=== PATIENT | female | born 1995 | race Caucasian/White ===

== ENCOUNTER 2022-09-28 07:56 | Outpatient (CLI) | payer MEDICAID, SELFPAY ==
[2022-09-28 08:08] VITALS: BP 108/64; PULSE 93; RESP 16; TEMP 36.1; O2SAT 100; BMI 31.0
[2022-09-28] MEDS: 0.9% NaCl Peripheral Flush Adult/Peds IV (08:20)
[2022-09-28] MEDS: Lactated Ringers 1,000 ML 999 ML IV (08:20)
[2022-09-28 08:28] LABS: Hematocrit 36.9 % (37-47); Hemoglobin 12.5 g/dL (12.0-15.0); Mean Corp Hgb Conc 33.9 g/dL (32-36); Mean Corpuscular Hgb 29.3 pg (27.0-32.0); Mean Corpuscular Volume 86.4 fL (81-99); Mean Platelet Vol. 10.6 fl (6.2-12.0); Platelet Count 215 K/mm3 (150-450); RBC Distribution Width CV 12.2 % (11.6-14.6); RBC Distribution Width SD 38.5 fl (35.1-43.9); Red Blood Count 4.27 M/mm3 (4.2-5.4); White Blood Count 8.4 K/mm3 (4.4-11.0)
[2022-09-28 08:54] LABS: ALB/GLOB Ratio 1.1 RATIO (0.9-2.4); AST(SGOT) 11 U/L (15-37); Alanine Aminotransfer ALT/SGPT 30 U/L (13-56); Albumin, Serum 3.9 g/dL (3.2-5.0); Alkaline Phosphatase 49 U/L (45-117); Anion Gap 8 (5-15); BUN 5 mg/dL (7-18); BUN/Creat Ratio 6.6 RATIO (10-20); Calcium,Total 9.2 mg/dL (8.5-10.1); Chloride 104 mmol/L (98-107); Creatinine, Serum 0.75 mg/dL (0.55-1.02); EST Glomerular Filtration Rate 99 mL/min (>60); Est Glom Filt Rate - Afr Amer 120 mL/min (>60); Estimated Creatinine Clearance 99.02 ml/min; Globulin 3.6 g/dL (2.2-4.2); Glucose 93 mg/dL (74-106); Potassium 3.7 mmol/L (3.5-5.1); Protein, Total 7.5 g/dL (6.4-8.2); Sodium Level 135 mmol/L (136-145); Thyroid Stim Hormone (TSH) 1.54 uIU/mL (0.358-3.74)
[2022-09-28] MEDS: Famotidine 20 MG in 0.9% NS 10 ML 300 MG IV (09:10)
[2022-09-28] MEDS: Dext 5%-0.45% NS 1,000 ML 250 ML IV (09:23)
[2022-09-28 13:35] VITALS: BP 114/56; PULSE 78
== END 2022-09-28 07:57 | disposition home or self-care (01) ==
PROVIDERS: PCP Obstetrics & Gynecology; Referring Provider Obstetrics & Gynecology; Visit Provider Obstetrics & Gynecology
DX: O21.1 Hyperemesis gravidarum with metabolic disturbance (principal); Z3A.00 Weeks of gestation of pregnancy not specified
CPT/HCPCS: 96374; 96375; 80053; 84443; 85027; J7120; A4216; J3490; J7799

== ENCOUNTER 2023-01-17 09:00 | Emergency (ER) | payer MEDICAID, SELFPAY ==
[2023-01-17 09:01] VITALS: BP 109/68; PULSE 94; RESP 18; TEMP 36.8; O2SAT 96; BMI 30.4
--- NOTE | 2023-01-17 09:21 | US_ITS ---
EXAM: US ABDOMEN LIMITED, RIGHT UPPER QUADRANT CLINICAL INDICATION: ruq pain, 23 wks preg TECHNIQUE: Real-time ultrasound of the right upper quadrant with image documentation. COMPARISON: No relevant prior studies available. FINDINGS: LIVER: Normal. There is normal echotexture. No focal hepatic lesion. No intrahepatic biliary ductal dilation. GALLBLADDER: Multiple small stones noted within an otherwise normal gallbladder. No gallbladder wall thickening is demonstrated. No pericholecystic fluid. Negative sonographic Horton''s sign. COMMON BILE DUCT: Unremarkable as visualized. The proximal common bile duct is normal size. PANCREAS: Unremarkable as visualized. No focal abnormality is demonstrated in the pancreas. No pancreatic ductal dilatation. RIGHT KIDNEY: Normal. There is no hydronephrosis. No shadowing calculus. No focal lesion or perinephric collection is demonstrated. US/Gallbladder IMPRESSION: Cholelithiasis. Electronically Signed: Nicholas Fox MD at 11:04 EDT ,
--- NOTE | 2023-01-17 09:22 | EDS_ITS ---
HPI HPI - GI History of Present Illness Chief Complaint: Abd Pain Informant: patient and spouse/S.O. Narrative Narrative: G1 P0 at 23-week gestation presents concerns for recurrent epigastric pain with nausea and vomiting. Patient reports in the first trimester seen at [facility] for similar symptoms had laboratory work reported it was indigestion. She was sent home medications however is not continued it. 2 weeks later had similar mild symptoms. She states is doing fine until 1 AM this morning she ate yogurt at 11 PM. Woke up with severe pain settled down return at 3 she took Zofran when she vomited. 7 AM symptoms return. She is concerned due to a strong family history stating all the females requiring gallbladder removal after their first . She has no right upper quadrant pain. No fevers. No urinary symptoms. Denies any abnormal vaginal discharge or bleeding. Prior similar symptoms: Yes PFSH PFSH Home Medications NK 01/17/23 [History Last Taken Unknown] Allergy/AdvReac Type Severity Reaction Status Date / Time No Known Allergies Allergy Verified 01/17/23 09:00 [facility] [place] ED Constitutional Constitutional ED: Denies chills, fever(s) or sweats Eyes Eyes: Denies change in vision ENT ENT ED: Denies dysphagia or sore throat Cardiovascular Cardiovascular: Denies chest pain, leg edema, palpitations or racing heartbeat Respiratory/Chest Respiratory/Chest: Denies cough, dyspnea or dyspnea on exertion Gastrointestinal Gastrointestinal: Reports abdominal pain, nausea and vomiting; Denies diarrhea Genitourinary Genitourinary ED: Denies dysuria, hematuria or urinary frequency Musculoskeletal Musculoskeletal: Denies back pain, extremity pain or neck pain Integumentary Denies rash or wounds Neurologic Neurologic: Denies headache(s), paresthesias or weakness EXAM Physical Exam Const Vital Signs: 01/17/23 09:01 Temperature 98.3 F Temperature Source Temporal Pulse Rate 94 Respiratory Rate 18 Blood Pressure 109/68 Blood Pressure Mean 81 Pulse Ox 96 Oxygen Delivery Method Room Air Positive well nourished and well developed General Appearance ED: well developed and NAD HEENT Reports moist mucous membranes normocephalic and atraumatic Eyes PERRL, EOMs intact bilaterally and conjunctivae normal General Eye ED: Yes normal appearance of both eyes Neck no lymphadenopathy and supple General: Negative for tenderness Chest Wall Chest: Negative for tenderness Resp normal respiratory effort and normal air movement Effort and Inspection: symmetric chest movement; Negative for respiratory distress Cardio regular rate, regular rhythm and no murmurs Peripheral Pulses: pulses 2+ throughout GI GI Narrative: Gravid abdomen, minimal tenderness epigastrium negative Horton's or McBurney's tenderness. Palpation: Negative for guarding or rebound tenderness present Back/Spine no CVA tenderness and no thoracic nor lumbar tenderness Extremity normal to inspection General Extremety ED: Negative for edema or tenderness General Extremity: Negative for edema Neuro oriented x3 and no sensory deficits noted Sensorium / Orientation: awake and alert Skin no rashes or lesions noted and no wounds MDM MDM MDM Narrative Medical decision making narrative: Interventions / MDM: Differential diagnosis: Diagnosis considered but do not suspect: Preeclampsia however blood pressure normal 109/68. My EKG interpretation: N/A Imaging independently reviewed and interpreted by myself: N/A External documents reviewed: N/A Test considered but not ordered:N/A ED course: Re-evaluation: stable Disposition discussed with patient/family/significant other: Case discussed with consulting clinician: N/A This note was generated with [employer] dictation software. It may contain incorrect words, spelling, and punctuation that were not noted in checking the note before signing. Discharge Plan Triage Chief Complaint: Abd Pain ED Provider: Pratik Patricio Dx/Rx/DC Orders Prescriptions: No Action NK Primary Care Provider: Aurelia Will Referrals: Aurelia Will MD [Primary Care Provider] -
--- NOTE | 2023-01-17 09:22 | ED.VIS.GI ---
HPI HPI - GI History of Present Illness Chief Complaint: Abd Pain Informant: patient and spouse/S.O. Narrative Narrative: G1, P0 at 23-week gestation presents concerns for recurrent epigastric pain with nausea and vomiting. Patient reports in the first trimester seen at [facility] for similar symptoms had laboratory work reported it was indigestion. She was sent home medications however is not continued it. 2 weeks later had similar mild symptoms. She states is doing fine until 1 AM this morning she ate yogurt at 11 PM. Woke up with severe pain settled down return at 3 she took Zofran when she vomited. 7 AM symptoms return. She is concerned due to a strong family history stating all the females requiring gallbladder removal after their first . She has no right upper quadrant pain. No fevers. No urinary symptoms. Denies any abnormal vaginal discharge or bleeding. Prior similar symptoms: Yes PFSH [facility] Medical History (Updated 01/17/23 @ 11:[address] Pratik Patricio DO) PCO (polycystic ovaries) PCOS (polycystic ovarian syndrome) Home Medications pantoprazole 40 mg tablet,delayed release 40 mg PO DAILY #30 tabs 01/17/23 [Rx Last Taken Unknown] Allergy/AdvReac Type Severity Reaction Status Date / Time No Known Allergies Allergy Verified 01/17/23 09:00 Social History Smoking Status: Never smoker ROS ROS ED Constitutional Constitutional ED: Denies chills, fever(s) or sweats Eyes Eyes: Denies change in vision ENT ENT ED: Denies dysphagia or sore throat Cardiovascular Cardiovascular: Denies chest pain, leg edema, palpitations or racing heartbeat Respiratory/Chest Respiratory/Chest: Denies cough, dyspnea or dyspnea on exertion Gastrointestinal Gastrointestinal: Reports abdominal pain, nausea and vomiting; Denies diarrhea Genitourinary Genitourinary ED: Denies dysuria, hematuria or urinary frequency Musculoskeletal Musculoskeletal: Denies back pain, extremity pain or neck pain Integumentary Denies rash or wounds Neurologic Neurologic: Denies headache(s), paresthesias or weakness EXAM Physical Exam Const Vital Signs: 01/17/23 09:01 01/17/23 11:45 Temperature 98.3 F Temperature Source Temporal Pulse Rate 94 75 Respiratory Rate 18 16 Blood Pressure 109/68 118/63 Blood Pressure Mean 81 81 Pulse Ox 96 98 Oxygen Delivery Method Room Air Positive well nourished and well developed General Appearance ED: well developed and NAD HEENT Reports moist mucous membranes normocephalic and atraumatic Eyes PERRL, EOMs intact bilaterally and conjunctivae normal General Eye ED: Yes normal appearance of both eyes Neck no lymphadenopathy and supple General: Negative for tenderness Chest Wall Chest: Negative for tenderness Resp normal respiratory effort and normal air movement Effort and Inspection: symmetric chest movement; Negative for respiratory distress Cardio regular rate, regular rhythm and no murmurs Peripheral Pulses: pulses 2+ throughout GI GI Narrative: Gravid abdomen, minimal tenderness epigastrium negative Horton's or McBurney's tenderness. Palpation: Negative for guarding or rebound tenderness present Back/Spine no CVA tenderness and no thoracic nor lumbar tenderness Extremity normal to inspection General Extremety ED: Negative for edema or tenderness General Extremity: Negative for edema Neuro oriented x3 and no sensory deficits noted Sensorium / Orientation: awake and alert Skin no rashes or lesions noted and no wounds MDM MDM MDM Narrative Medical decision making narrative: Interventions / MDM: Differential diagnosis: Biliary colic, cholelithiasis, gastritis Diagnosis considered but do not suspect: Preeclampsia however blood pressure normal 109/68. Cholecystitis however no pain right upper quadrant ultrasound negative. My EKG interpretation: N/A Imaging independently reviewed and interpreted by myself: Right upper quadrant ultrasound multiple gallstones, no signs of cholecystitis. External documents reviewed: N/A Test considered but not ordered:N/A ED course: Patient presenting pain increasing after eating dairy. Recurrent symptoms, she is 23 weeks . Nonsurgical abdomen. Labs were drawn ultrasound ordered. IV established for fluids and Pepcid. Results white count 12.8, normal lipase and liver enzymes. heart tones 140, right upper quad ultrasound notes cholelithiasis with no signs of cholecystitis. Clinically stable. Discussed with patient referred to surgery as an outpatient however not likely urgent surgery as she is . She understands this. She will avoid dairy products and greasy foods, she has Zofran at home. We will add a PPI. Outpatient follow-up with return precautions. All questions were answered. Re-evaluation: stable Disposition discussed with patient/family/significant other: Patient and significant other Case discussed with consulting clinician: N/A This note was generated with [employer] software. It may contain incorrect words, spelling, and punctuation that were not noted in checking the note before signing. Lab Data Attestation: I reviewed the patient's lab results. Labs: Laboratory Results - last 24 hr 01/17/23 01/17/23 09:45 10:40 WBC 12.8 H RBC 3.81 L Hgb 11.4 L Hct 34.9 L MCV 91.6 MCH 29.9 MCHC 32.7 RDW Std Deviation 41.[address] 12.4 Plt Count 228 MPV 10.7 Immature Gran % (Auto) 0.700 Neut % (Auto) 74.9 H Lymph % (Auto) 17.3 L [place] % (Auto) 4.8 Eos % (Auto) 1.7 Baso % (Auto) 0.6 Absolute Neuts (auto) 9.6 H Absolute Lymphs (auto) 2.21 Nucleated RBC % 0 Sodium 137 Potassium 4.0 Chloride 105 Carbon Dioxide 24.0 Anion Gap 8 BUN 7 Creatinine 0.48 L Estim Creat Clear Calc 161.22 Est GFR (MDRD) Af Amer 199 Est GFR (MDRD) Non-Af 165 BUN/Creatinine Ratio 14.4 Glucose 90 Calcium 9.2 Total Bilirubin 0.50 Direct Bilirubin 0.27 AST 27 ALT 27 Alkaline Phosphatase 48 Total Protein 7.2 Albumin 3.3 Globulin 3.9 Lipase 26 Urine Color Yellow Urine Clarity Sl. Cloudy Urine pH 8.0 Ur Specific [place] 1.010 Urine Protein Negative Urine Glucose (UA) Normal Urine Ketones Negative Urine Occult Blood Negative Urine Nitrite Negative Urine Bilirubin Negative Urine Urobilinogen Normal Ur Leukocyte Esterase 25 H Urine RBC 0 SEEN Urine WBC 0-5 SEEN Ur Squamous Epith Cells 0-5 SEEN Urine Bacteria RARE Urine Mucus RARE Radiography Diagnostic Testing: Clinical Impression(s) from Imaging Studies Gallbladder Ultrasound 01/17/23 09:21 IMPRESSION: Cholelithiasis. Electronically Signed: Nicholas Fox MD at 11:04 EDT , Discharge Plan Triage Chief Complaint: Abd Pain ED Provider: Pratik Patricio Dx/Rx/DC Orders Clinical Impression: , Cholelithiasis, Biliary colic Instructions: ED Gallstones with Biliary Colic, ED Established ... Prescriptions: New pantoprazole 40 mg tablet,delayed release (DR/EC) 40 mg PO DAILY Qty: 30 0RF Primary Care Provider: Aurelia Will Referrals: Chan Canales MD [Med Staff - Active Staff] - 1-2 Weeks Aurelia Will MD [Primary Care Provider] - Activity Restrictions/Additional Instructions: Ultrasound with gallstones multiple small ones. No signs of cholecystitis. Avoid greasy and dairy foods. Take medications as prescribed. Follow-up with surgery for evaluation as outpatient. Return if any recurrent or worsening symptoms. Disposition Disposition: Home, Self Care Discharge Date/Time: 01/17/23 11:46
[2023-01-17] MEDS: 0.9% Normal Saline (1000mL) 1,000 ML 1000 ML IV (09:55)
[2023-01-17] MEDS: Famotidine 200 MG/20 ML MDV 20 MG in 0.9% Normal Saline (Pres. free 8 ML 300 MG IV (09:55)
[2023-01-17 09:56] LABS: Absolute Lymphocyte Count 2.21 X10^3/uL (0.83-4.51); Absolute Neutrophil Count 9.6 X10^3/uL (2.0-7.7); Basophil# 0.08 X10^3/uL; Basophil% 0.6 % (0-1); Eosinophil# 0.22 X10^3/uL; Eosinophils% 1.7 % (0-5); Hematocrit 34.9 % (37-47); Hemoglobin 11.4 g/dL (12.0-15.0); Lymphocyte # 2.21 X10^3/ul (0.83-4.51); Lymphocyte % 17.3 % (19-41); Mean Corp Hgb Conc 32.7 g/dL (32-36); Mean Corpuscular Hgb 29.9 pg (27.0-32.0); Mean Corpuscular Volume 91.6 fL (81-99); Mean Platelet Vol. 10.7 fl (6.2-12.0); Monocyte# 0.62 X10^3/uL; Monocyte% 4.8 % (0-10); NRBC Flagged by Analyzer 0 % (0-5); Neutrophil # 9.57 X10^3/uL (2.7-7.7); Neutrophil % 74.9 % (47-70); Platelet Count 228 K/mm3 (150-450); RBC Distribution Width CV 12.4 % (11.6-14.6); RBC Distribution Width SD 41.1 fl (35.1-43.9); Red Blood Count 3.81 M/mm3 (4.2-5.4); White Blood Count 12.8 K/mm3 (4.4-11.0)
[2023-01-17 10:16] LABS: AST(SGOT) 27 U/L (15-37); Alanine Aminotransfer ALT/SGPT 27 U/L (13-56); Albumin, Serum 3.3 g/dL (3.2-5.0); Alkaline Phosphatase 48 U/L (45-117); Anion Gap 8 (5-15); BUN 7 mg/dL (7-18); BUN/Creat Ratio 14.4 RATIO (10-20); Bilirubin, Direct 0.27 mg/dL (0.00-0.30); Calcium,Total 9.2 mg/dL (8.5-10.1); Chloride 105 mmol/L (98-107); Creatinine, Serum 0.48 mg/dL (0.55-1.02); EST Glomerular Filtration Rate 165 mL/min (>60); Est Glom Filt Rate - Afr Amer 199 mL/min (>60); Estimated Creatinine Clearance 161.22 ml/min; Globulin 3.9 g/dL (2.2-4.2); Glucose 90 mg/dL (74-106); Lipase 26 U/L (13-75); Protein, Total 7.2 g/dL (6.4-8.2); Sodium Level 137 mmol/L (136-145)
[2023-01-17 10:57] LABS: Red Blood Cells-Urine 0 SEEN /hpf (0-5)
[2023-01-17 10:59] LABS: Color, Urine Yellow (Yellow); Glucose, Dipstick Normal (Normal); Ketone-Dipstick Negative (Negative); Leukocyte Esterase-Dipstick 25 /ul (Negative); Nitrite-Dipstick Negative (Negative); Occult Blood-Urine Negative /ul (Negative); Protein-Dipstick Negative (Negative); Urine Bilirubin Dipstick Negative (Negative); Urine Clarity Sl. Cloudy (Clear); Urine Urobilinogen Normal (Normal)
[2023-01-17 11:09] LABS: Squamous Epithelial Cells - UA 0-5 SEEN /hpf (5-10); White Blood Cells 0-5 SEEN /hpf (0-5)
[2023-01-17 11:10] LABS: Bacteria RARE /hpf (None Seen); Mucous, Urine RARE /hpf (<or=2+)
[2023-01-17 11:45] VITALS: BP 118/63; PULSE 75; RESP 16; O2SAT 98
== END 2023-01-17 11:46 | disposition home or self-care (01) ==
PROVIDERS: Emergency Provider Emergency Medicine; PCP Family Medicine; Visit Provider Emergency Medicine
DX: O99.612 Diseases of the digestive system complicating pregnancy, second trimester (principal); Z3A.23 23 weeks gestation of pregnancy; K80.60 Calculus of gallbladder and bile duct with cholecystitis, unspecified, without obstruction; K30 Functional dyspepsia; O26.612 Liver and biliary tract disorders in pregnancy, second trimester; O99.284 Endocrine, nutritional and metabolic diseases complicating childbirth; E28.2 Polycystic ovarian syndrome
CPT/HCPCS: 76705; 80048; 80076; 81001; 83690; 85025; 99283; A4216; J3490 ×2; J7030

== ENCOUNTER 2023-01-18 16:08 | Inpatient (IN) | payer MEDICAID, SELFPAY ==
[2023-01-18 16:09] VITALS: BP 124/77; PULSE 74; RESP 18; TEMP 35.8; O2SAT 97; BMI 30.2
--- NOTE | 2023-01-18 16:36 | US_ITS ---
STUDY: ABDOMINAL ULTRASOUND - RIGHT UPPER QUADRANT REASON FOR VISIT: Female, 27 years old RUQ PAIN, GALLSTONES, TECHNIQUE: Ultrasound evaluation of the right upper quadrant was performed with real-time and static huber-scale imaging. TECHNICAL QUALITY: Adequate. COMPARISON: None. FINDINGS: Liver: The liver measures 15.9 cm. There is normal echogenicity of the liver. The bile ducts are within normal limits. There is hepatic color flow. The direction of portal flow is hepatopetal. There is no demonstrated mass lesion. Gallbladder: Normal distended gallbladder. The gallbladder wall measures 4.1 mm. There is a positive sonographic Horton''s sign. There is no pericholecystic fluid. There are multiple gallstones. Common Bile Duct (C.B.D.): The common bile duct measures 7.6 mm. Pancreas: Normal size of the head, body and tail of the pancreas. There is normal echogenicity of the pancreas. There is no demonstrated pancreatic mass or cyst. Right Kidney: Normal size of the right kidney. The right kidney measures 10.1 x 6 x 4.9 cm. Normal renal cortex. The right cortex measures 1.6 cm. There is no demonstrated renal mass or cyst. There is no right hydronephrosis. US/Gallbladder IMPRESSION: Findings consistent with cholelithiasis and acute cholecystitis. Mildly dilated distal common bile duct without definitive evidence for intraductal stone. MRI/MRCP would be useful for further assessment if indicated Electronically Signed: Hamlet Alvarado MD at 18:46 EDT ,
--- NOTE | 2023-01-18 16:37 | EDS_ITS ---
HPI HPI - GI History of Present Illness Chief Complaint: Abd Pain Informant: patient Narrative Narrative: Patient presents again today with continuing right upper quadrant pain and nausea and vomiting despite Zofran. This is a patient 23 weeks gestation. She has a significant family history of biliary disease especially during or after pregnancies. She has no abdominal surgeries though. She had her first episode of right upper quadrant pain with nausea and vomiting in October. This lasted for couple days. She had the same thing happened in November. This episode started a couple days ago now. She gets pain and cramping in the right upper quadrant. Sometimes it will moved to her back or shoulder area. She has been getting nausea and vomiting. She came back in because of the pain but also because she really just cannot keep liquids down. She had had some mild hyperemesis on about week 7 or 8 of but other than that she has not had problems with nausea and vomiting throughout . She has no urinary symptoms. No pelvic or lower abdominal pain whatsoever. No discharge or bleeding. No fevers or chills. No coughing or trouble breathing. She has contacted her [employer] office. They evidently have her set up to see a surgeon on Saturday although she is not sure who that is. [facility] Medical History PCO (polycystic ovaries) PCOS (polycystic ovarian syndrome) Home Medications pantoprazole 40 mg tablet,delayed release 40 mg PO DAILY #30 tabs 01/17/23 [Rx Last Taken Unknown] Allergy/AdvReac Type Severity Reaction Status Date / Time No Known Allergies Allergy Verified 01/18/23 16:08 Social History (Updated 01/18/23 @ 16:59 by Leta Loredo) household members: spouse Smoking Status: Never smoker ROS ROS ED ROS Narrative A complete review of systems was performed and is negative except as documented in the history of present illness. Some specific details below. Constitutional: No recent fevers or chills. EYE: No visual complaints or pain. August eye color. ENT: No difficulty swallowing. No swelling. No pain. He is treated for GERD she is not really having GERD type symptoms. She has cut all acid foods out of her diet with no benefit. CV: No chest pain or palpitations. Respiratory: No dyspnea. No hemoptysis. No difficulty taking breaths. GI: Please see history of present illness. : No frequency dysuria or hematuria. Musculoskeletal: No recent trauma. No pains. Skin: No rash. Nondiaphoretic. Neuro: No weakness or numbness. Endocrine: No polyuria or polydipsia. EXAM Physical Exam Narrative Exam Narrative: CONSTITUTIONAL: Patient is nontoxic in appearance. The patient looks comfortable. HEENT: No notable trauma. Mucous membranes moist. No sinus tenderness. No indication of pain with swallowing. EYES: No conjunctival injection. No icterus. CARDIOVASCULAR: Regular rate. Regular rhythm. No notable murmur. No JVD. RESPIRATORY: No respiratory distress. Breathing is unlabored. No wheezes. No rhonchi. No rales. No pain with a deep breath. GASTROINTESTINAL: Not distended. Bowel sounds are normal. Does have tenderness in both the epigastric and right upper quadrant area. Mildly positive Horton sign. No tenderness elsewhere in the abdomen. Uterus is palpable just at or above the umbilicus as expected. GENITOURINARY: No tenderness over the bladder. No CVA tenderness either side. MUSCULOSKELETAL: Atraumatic. No peripheral edema. No cord. No tenderness along the deep venous system. No asymmetry. NEUROLOGICAL: Patient is alert and appropriate. No focal deficit noted. SKIN: No noted rashes. No diaphoresis. PSYCHIATRIC: Patient is calm. Mood is appropriate. Const Vital Signs: 01/18/23 16:09 Temperature 96.4 F L Temperature Source Temporal Pulse Rate 74 Respiratory Rate 18 Blood Pressure 124/77 H Blood Pressure Mean 92 Pulse Ox 97 Oxygen Delivery Method Room Air MDM MDM MDM Narrative Medical decision making narrative: Patient's CBC shows mild elevation of white count 12.9 which is similar to yesterday. Electrolytes show no marked abnormalities. Liver function tests are essentially normal. They have very minimal nonspecific elevation of the ALT. Patient's lipase is normal at 38. Patient's ultrasound was read as thickened wall and duct with some stones. No definite stone in the duct. I discussed the case with our surgeon, Dr. Cabral. We looked at the images. The area picked for the measuring of the wall was 1 area at the top of the ga llbladder that was a bit hazy. The rest of the gallbladder wall actually does not look thickened. It looks very thin. If there was obstruction of the common bile duct we would expect significant elevation of liver function test but were not seeing the. I also discussed the case with the [employer], Eliz. I also discussed the case with hospitalist. Dr. Cabral is coming to see the patient we will admit her at this time. Patient is having continued pain nausea and vomiting despite outpatient meds and therapy. Lab Data Attestation: I reviewed the patient's lab results. Labs: Laboratory Results - last 24 hr 01/18/23 16:40 WBC 12.9 H RBC 4.01 L Hgb 12.4 Hct 35.7 L MCV 89.0 MCH 30.9 MCHC 34.7 D RDW Std Deviation 40.[address] 12.5 Plt Count 255 MPV 10.4 Immature Gran % (Auto) 0.500 Neut % (Auto) 74.0 H Lymph % (Auto) 18.4 L [place] % (Auto) 5.3 Eos % (Auto) 1.2 Baso % (Auto) 0.6 Absolute Neuts (auto) 9.6 H Absolute Lymphs (auto) 2.38 Nucleated RBC % 0 Sodium 137 Potassium 3.8 Chloride 103 Carbon Dioxide 25.0 Anion Gap 9 BUN 6 L Creatinine 0.54 L Estim Creat Clear Calc 143.31 Est GFR (MDRD) Af Amer 177 Est GFR (MDRD) Non-Af 146 BUN/Creatinine Ratio 11.2 Glucose 92 Calcium 9.9 Total Bilirubin 0.90 AST 35 ALT 58 H Alkaline Phosphatase 73 Total Protein 7.8 Albumin 3.6 Globulin 4.2 Albumin/Globulin Ratio 0.9 Lipase 38 Radiography Diagnostic Testing: Clinical Impression(s) from Imaging Studies Gallbladder Ultrasound 01/18/23 16:36 IMPRESSION: Findings consistent with cholelithiasis and acute cholecystitis. Mildly dilated distal common bile duct without definitive evidence for intraductal stone. MRI/MRCP would be useful for further assessment if indicated Electronically Signed: Hamlet Alvarado MD at 18:46 EDT , Management Discussion w/another healthcare provider: Hospitalist, Shank Carrier and Other Discharge Plan Triage Chief Complaint: Abd Pain ED Provider: Ulysses Garcia Dx/Rx/DC Orders Clinical Impression: RUQ abdominal pain, Intractable nausea and vomiting, Second trimester Primary Care Provider: Aurelia Will Disposition Disposition: Acute Care Hospital [facility]
[2023-01-18] MEDS: Ondansetron 4 MG/2 ML Vial IV (16:45)
[2023-01-18] MEDS: 0.9% Normal Saline (1000mL) 1,000 ML 1000 ML IV (16:45)
[2023-01-18 16:47] LABS: Absolute Lymphocyte Count 2.38 X10^3/uL (0.83-4.51); Absolute Neutrophil Count 9.6 X10^3/uL (2.0-7.7); Basophil# 0.08 X10^3/uL; Basophil% 0.6 % (0-1); Eosinophil# 0.15 X10^3/uL; Eosinophils% 1.2 % (0-5); Hematocrit 35.7 % (37-47); Hemoglobin 12.4 g/dL (12.0-15.0); Lymphocyte # 2.38 X10^3/ul (0.83-4.51); Lymphocyte % 18.4 % (19-41); Mean Corp Hgb Conc 34.7 g/dL (32-36); Mean Corpuscular Hgb 30.9 pg (27.0-32.0); Mean Platelet Vol. 10.4 fl (6.2-12.0); Monocyte# 0.69 X10^3/uL; Monocyte% 5.3 % (0-10); NRBC Flagged by Analyzer 0 % (0-5); Neutrophil # 9.57 X10^3/uL (2.7-7.7); Platelet Count 255 K/mm3 (150-450); RBC Distribution Width CV 12.5 % (11.6-14.6); RBC Distribution Width SD 40.5 fl (35.1-43.9); Red Blood Count 4.01 M/mm3 (4.2-5.4); White Blood Count 12.9 K/mm3 (4.4-11.0)
[2023-01-18 17:07] LABS: ALB/GLOB Ratio 0.9 RATIO (0.9-2.4); AST(SGOT) 35 U/L (15-37); Alanine Aminotransfer ALT/SGPT 58 U/L (13-56); Albumin, Serum 3.6 g/dL (3.2-5.0); Alkaline Phosphatase 73 U/L (45-117); Anion Gap 9 (5-15); BUN 6 mg/dL (7-18); BUN/Creat Ratio 11.2 RATIO (10-20); Calcium,Total 9.9 mg/dL (8.5-10.1); Chloride 103 mmol/L (98-107); Creatinine, Serum 0.54 mg/dL (0.55-1.02); EST Glomerular Filtration Rate 146 mL/min (>60); Est Glom Filt Rate - Afr Amer 177 mL/min (>60); Estimated Creatinine Clearance 143.31 ml/min; Globulin 4.2 g/dL (2.2-4.2); Glucose 92 mg/dL (74-106); Lipase 38 U/L (13-75); Potassium 3.8 mmol/L (3.5-5.1); Protein, Total 7.8 g/dL (6.4-8.2); Sodium Level 137 mmol/L (136-145)
[2023-01-18] MEDS: proMETHazine 25 MG/ML Syringe 12.5 MG IM (19:39)
--- NOTE | 2023-01-18 20:38 | PCM.HP.STD ---
HPI - General General Date of Admission: 01/18/23 Date of Service: 01/18/23 HPI Narrative TENNILLE MONTIEL, is a 27 F who presents to the ER due to right upper quadrant and epigastric pain. Patient is currently 23 weeks gestation. Patient was also in the ER yesterday. Patient was sent home with a prescription for Protonix. For yesterday's ER visit patient states that she had yogurt the night before and then had epigastric/right upper quadrant pain about 1 AM which continued that she came to the ER. Patient states that after she came home from the ER yesterday she had couple more episodes and then again at night it did get worse. Patient was able to have some eggs/toast did avoid fatty greasy foods. Patient has several episodes of nausea and vomiting patient was not able to take the Protonix as she was having the nausea and vomiting. Patient did have an ultrasound yesterday which showed small amount of gallstones normal wall normal ducts, and another ultrasound was done today which called a thickened wall on my read gallbladder wall is still fairly normal throughout and again only a small amount gallstones or sludge seen. Patient white blood count was 12.8 yesterday 12.9 today. Patient did have a slight elevation of ALT today was normal yesterday. Patient states she will get the nausea or vomiting within 10 minutes of eating and that her abdomen actually feels little better while she is eating. In the pain only starts in the middle the night patient does not eat right before she goes to bed this does wake her up. Patient was previously seen back in October at [facility] was told she had GERD but not given any medications was told to avoid tomato sauces or spicy foods. [facility] Medical History PCO (polycystic ovaries) PCOS (polycystic ovarian syndrome) Home Medications pantoprazole 40 mg tablet,delayed release 40 mg PO DAILY #30 tabs 01/17/23 [Rx Last Taken Unknown] Allergy/AdvReac Type Severity Reaction Status Date / Time No Known Allergies Allergy Verified 01/18/23 16:08 Social History (Updated 01/18/23 @ 16:59 by Leta Loredo) household members: spouse Smoking Status: Never smoker Vital Signs Vital Signs Vital Signs: 01/18/23 16:09 Temperature 96.4 F L Temperature Source Temporal Pulse Rate 74 Respiratory Rate 18 Blood Pressure 124/77 H Blood Pressure Mean 92 Pulse Ox 97 Oxygen Delivery Method Room Air Weight Weight: 182 lb Body Mass Index (BMI) 30.2 Physical Exam Const alert, oriented x3 and no apparent distress HEENT normocephalic and head/scalp atraumatic Resp normal respiratory effort Cardio regular rate GI soft to palpation; Negative for non-distended GI Narrative: Protuberant abdomen up to umbilicus consistent with 23 weeks. Palpation: tender epigastric, LUQ and RUQ; Negative for guarding Extremity no clubbing, cyanosis or edema Neuro CN's II-XII intact bilaterally Psych mental status grossly normal Results Lab / Micro Data 01/18/23 16:40 01/18/23 16:40 Labs: Laboratory Results - last 24 hr 01/18/23 16:40: WBC 12.9 H, RBC 4.01 L, Hgb 12.4, Hct 35.7 L, MCV 89.0, MCH 30.9, MCHC 34.7 D, RDW Std Deviation 40.5, RDW Coeff of Court 12.5, Plt Count 255, MPV 10.4, Immature Gran % (Auto) 0.500, Neut % (Auto) 74.0 H, Lymph % (Auto) 18.4 L, [place] % (Auto) 5.3, Eos % (Auto) 1.2, Baso % (Auto) 0.6, Absolute Neuts (auto) 9.6 H, Absolute Lymphs (auto) 2.38, Nucleated RBC % 0, Sodium 137, Potassium 3.8, Chloride 103, Carbon Dioxide 25.0, Anion Gap 9, BUN 6 L, Creatinine 0.54 L, Estim Creat Clear Calc 143.31, Est GFR (MDRD) Af Amer 177, Est GFR (MDRD) Non-Af 146, BUN/Creatinine Ratio 11.2, Glucose 92, Calcium 9.9, Total Bilirubin 0.90, AST 35, ALT 58 H, Alkaline Phosphatase 73, Total Protein 7.8, Albumin 3.6, Globulin 4.2, Albumin/Globulin Ratio 0.9, Lipase 38 Radiology Impression Gallbladder Ultrasound 01/18/23 16:36 IMPRESSION: Findings consistent with cholelithiasis and acute cholecystitis. Mildly dilated distal common bile duct without definitive evidence for intraductal stone. MRI/MRCP would be useful for further assessment if indicated Electronically Signed: Hamlet Alvarado MD at 18:46 EDT , Assessment & Plan Assessment/Plan (1) Epigastric abdominal pain: (2) LUQ abdominal pain: (3) RUQ abdominal pain: (4) Gastritis: (5) Cholelithiasis: (6) : PLAN: Plan Did review ultrasound results of yesterday's and today's with patient and her . Again I do think that the gallbladder wall does not appear to be thickened on either US and there is only a small amount/minimal gallstones or sludge. Patient's symptoms do more fit with gastric etiology. We will place patient on Protonix IV and see if this improves patient's pain. Discussed that normal pathophysiology of gallbladder she is about 30 minutes or half hour after eating right upper quadrant epigastric pain. However patient seems to have her pain just 10 minutes after eating no matter what she eats and her stomach feels little bit better when she is eating. Patient also has had pain that is worse and wakes her up in the middle of the night as well. Patient and agreeable plan. We will plan to admit the patient IV fluids and observe. Patient is aware that if she still has significant pain even on the Protonix I would consider laparoscopic cholecystectomy; however currently but may not be needed. Mikayla Cabral M.D. Pager: [phone] [facility] [address] [place] [address], [facility], [address] [place] [address] Office: [phone]
[2023-01-18] MEDS: Pantoprazole Sodium 40 MG in 0.9% Normal Saline (100mL MB+) 100 ML 330 MG IV (21:14)
[2023-01-18 21:15] VITALS: RESP 16
[2023-01-18 23:14] VITALS: BMI 31.2
[2023-01-18 23:26] VITALS: BP 108/62; PULSE 54; RESP 16; TEMP 36.6; O2SAT 100
[2023-01-19] MEDS: Morphine 4 MG/ML Syringe IV (01:15)
[2023-01-19] MEDS: Sucralfate 1 GM Tablet PO ×5 (01:54→21:44)
[2023-01-19] MEDS: Lactated Ringers 1,000 ML 120 ML IV ×3 (01:54→15:34)
[2023-01-19] MEDS: 0.9% Saline Lock 10 ML Syringe IV (01:55)
[2023-01-19] MEDS: Morphine 2 MG/ML Syringe IV ×2 (04:37→06:38)
[2023-01-19 04:42] VITALS: BP 103/84; PULSE 56; RESP 16; TEMP 37; O2SAT 99
[2023-01-19 07:23] LABS: Absolute Lymphocyte Count 3.04 X10^3/uL (0.83-4.51); Absolute Neutrophil Count 6.4 X10^3/uL (2.0-7.7); Basophil# 0.07 X10^3/uL; Basophil% 0.7 % (0-1); Eosinophils% 1.9 % (0-5); Hemoglobin 10.5 g/dL (12.0-15.0); Lymphocyte # 3.04 X10^3/ul (0.83-4.51); Lymphocyte % 29.1 % (19-41); Mean Corp Hgb Conc 32.8 g/dL (32-36); Mean Corpuscular Volume 91.4 fL (81-99); Mean Platelet Vol. 10.9 fl (6.2-12.0); Monocyte# 0.65 X10^3/uL; Monocyte% 6.2 % (0-10); NRBC Flagged by Analyzer 0 % (0-5); Neutrophil # 6.41 X10^3/uL (2.7-7.7); Neutrophil % 61.4 % (47-70); Platelet Count 211 K/mm3 (150-450); RBC Distribution Width CV 12.4 % (11.6-14.6); White Blood Count 10.4 K/mm3 (4.4-11.0)
[2023-01-19 07:41] LABS: AST(SGOT) 16 U/L (15-37); Alanine Aminotransfer ALT/SGPT 45 U/L (13-56); Alkaline Phosphatase 62 U/L (45-117); Anion Gap 7 (5-15); BUN 5 mg/dL (7-18); BUN/Creat Ratio 11.5 RATIO (10-20); Bilirubin, Direct 0.62 mg/dL (0.00-0.30); Calcium,Total 8.9 mg/dL (8.5-10.1); Chloride 107 mmol/L (98-107); Creatinine, Serum 0.44 mg/dL (0.55-1.02); EST Glomerular Filtration Rate 186 mL/min (>60); Est Glom Filt Rate - Afr Amer 225 mL/min (>60); Estimated Creatinine Clearance 168.78 ml/min; Globulin 3.6 g/dL (2.2-4.2); Glucose 79 mg/dL (74-106); Potassium 3.5 mmol/L (3.5-5.1); Protein, Total 6.6 g/dL (6.4-8.2); Sodium Level 140 mmol/L (136-145)
[2023-01-19 08:00] VITALS: O2SAT 96
--- NOTE | 2023-01-19 08:19 | NURSING ---
Geena Escobar cost analyst covering for Dr. Meneses informed of consult, aware will see pt today.
[2023-01-19 08:50] VITALS: BP 109/58; PULSE 53; RESP 18; TEMP 36.8; O2SAT 97
--- NOTE | 2023-01-19 09:11 | PN.SURG_ITS ---
Objective Data Objective Data Vital Signs: Vital Signs Temp Pulse Resp BP Pulse Ox O2 Del Method 98.6 F 56 L 16 103/84 H 99 Room Air 01/19/23 04:42 01/19/23 04:42 01/19/23 04:42 01/19/23 04:42 01/19/23 04:42 01/19/23 04:42 Oxygen Delivery Method Room Air Weight: 181 lb 14.102 oz Body Mass Index (BMI) 31.2 Intake & Output: Intake and Output for Last 24 Hours 01/17/23 01/18/23 01/19/23 23:59 23:59 23:59 Intake Total 1110 / 1110 802 / 802 Balance 1110 / 1110 802 / 802 Lab / Micro Data 01/19/23 06:53 01/19/23 06:53 Labs: Laboratory Results - last 24 hr 01/18/23 16:40: WBC 12.9 H, RBC 4.01 L, Hgb 12.4, Hct 35.7 L, MCV 89.0, MCH 30.9, MCHC 34.7 D, RDW Std Deviation 40.5, RDW Coeff of Court 12.5, Plt Count 255, MPV 10.4, Immature Gran % (Auto) 0.500, Neut % (Auto) 74.0 H, Lymph % (Auto) 18.4 L, [place] % (Auto) 5.3, Eos % (Auto) 1.2, Baso % (Auto) 0.6, Absolute Neuts (auto) 9.6 H, Absolute Lymphs (auto) 2.38, Nucleated RBC % 0, Sodium 137, Potassium 3.8, Chloride 103, Carbon Dioxide 25.0, Anion Gap 9, BUN 6 L, Creatinine 0.54 L, Estim Creat Clear Calc 143.31, Est GFR (MDRD) Af Amer 177, Est GFR (MDRD) Non-Af 146, BUN/Creatinine Ratio 11.2, Glucose 92, Calcium 9.9, Total Bilirubin 0.90, AST 35, ALT 58 H, Alkaline Phosphatase 73, Total Protein 7.8, Albumin 3.6, Globulin 4.2, Albumin/Globulin Ratio 0.9, Lipase 38 01/19/23 06:53: WBC 10.4, RBC 3.50 L, Hgb 10.5 L, Hct 32.0 L, MCV 91.4, MCH 30.0, MCHC 32.8 D, RDW Std Deviation 41.0, RDW Coeff of Court 12.4, Plt Count 211, MPV 10.9, Immature Gran % (Auto) 0.700, Neut % (Auto) 61.4, Lymph % (Auto) 29.1, [place] % (Auto) 6.2, Eos % (Auto) 1.9, Baso % (Auto) 0.7, Absolute Neuts (auto) 6.4, Absolute Lymphs (auto) 3.04, Nucleated RBC % 0, Sodium 140, Potassium 3.5, Chloride 107, Carbon Dioxide 26.0, Anion Gap 7, BUN 5 L, Creatinine 0.44 L, Estim Creat Clear Calc 168.78, Est GFR (MDRD) Af Amer 225, Est GFR (MDRD) Non-Af 186, BUN/Creatinine Ratio 11.5, Glucose 79, Calcium 8.9, Total Bilirubin 1.10 H, Direct Bilirubin 0.62 H, AST 16, ALT 45, Alkaline Phosphatase 62, Total Protein 6.6, Albumin 3.0 L, Globulin 3.6 Radiography Diagnostic Testing: Radiology Impression Gallbladder Ultrasound 01/18/23 16:36 IMPRESSION: Findings consistent with cholelithiasis and acute cholecystitis. Mildly dilated distal common bile duct without definitive evidence for intraductal stone. MRI/MRCP would be useful for further assessment if indicated Electronically Signed: Hamlet Alvarado MD at 18:46 EDT Reading Location ID and State: [facility] / MD Tel , Service support , Physical Exam Const oriented x3 and no apparent distress Resp normal respiratory effort Cardio regular rate GI soft to palpation GI Narrative: Tender to palpation mainly in the epigastric, less on the right upper quadrant and left upper quadrants, no peritoneal signs protuberant lower abdomen consistent with 23 weeks gestation. Assessment & Plan Assessment/Plan (1) Epigastric abdominal pain: (2) LUQ abdominal pain: (3) RUQ abdominal pain: (4) Gastritis: (5) Cholelithiasis: (6) : PLAN: Plan Patient does report that she is starving and still has some epigastric disco mfort and is taking morphine as needed. We will give the patient clears. Did discuss with patient that if still having this discomfort may consider an EGD as well. Patient is agreeable with plan. Continue Protonix and Carafate. Currently still thinking gallbladder is less likely as she reports she is hungry white blood count is normal from 12 no antibiotics. Patient does have a slight elevation of her total bili at 1.1 but other LFTs are normal. Mikayla Cabral M.D. Pager: [phone] [facility] [address] [place] [address], [facility], [address] [place] [address] Office: [phone] Charges/Coding Visit Charges Inpatient E&M: 49332 Subs Hosp L2
--- NOTE | 2023-01-19 10:07 | EX.PCM.CONOB ---
Assessment & Plan (1) Second trimester : (2) Intractable nausea and vomiting: (3) Gastritis: (4) RUQ abdominal pain: (5) Epigastric abdominal pain: (6) Cholelithiasis: (7) : COMMENT: 23 weeks gestation currently PLAN: Plan Continue present plan of care FHT's 153 bpm via doppler FHT every shift / nursing notified Patient to stay tonight for additional observation and testing Dr. Hernandez aware of consult and plan of care HPI Consult Data Date of Consult: 01/19/23 HPI Narrative Reason for Consultation: at 23 weeks gestation admitted for observation for gallstones. HPI Narrative: TENNILLE MONTIEL, is a 27 F who presented twice to ED for RUQ pain, nausea, and emesis. She was unable to keep any food or liquids down for the past 2 days. US showed gallstones without obstruction. She was admitted for IV fluids, pain medication and observation. [facility] Medical History PCO (polycystic ovaries) PCOS (polycystic ovarian syndrome) Home Medications pantoprazole 40 mg tablet,delayed release 40 mg PO DAILY #30 tabs 01/17/23 [Rx Last Taken Unknown] Allergy/AdvReac Type Severity Reaction Status Date / Time No Known Allergies Allergy Verified 01/18/23 16:08 Social History household members: spouse Smoking Status: Never smoker Vital Signs Vital Signs Vital Signs: 01/18/23 16:09 01/18/23 21:15 01/18/23 23:26 Temperature 96.4 F L 98 F Temperature Source Temporal Temporal Pulse Rate 74 54 L Pulse Strength Respiratory Rate 18 16 16 Respiratory Effort Respiratory Depth Respiratory Pattern Blood Pressure 124/77 H 108/62 Blood Pressure Mean 92 77 Blood Pressure Source Monitor Blood Pressure Position Semi-Fowlers Blood Pressure Location Left Arm Pulse Ox 97 100 Oxygen Delivery Method Room Air Room Air 01/18/23 23:14 01/19/23 04:42 01/19/23 09:15 Temperature 98.6 F Temperature Source Temporal Pulse Rate 56 L Pulse Strength Normal (2+) Respiratory Rate 16 Respiratory Effort Normal Non-Labored Respiratory Depth Normal Respiratory Pattern Normal Blood Pressure 103/84 H Blood Pressure Mean 90 Blood Pressure Source Monitor Blood Pressure Position Semi-Fowlers Blood Pressure Location Left Arm Pulse Ox 99 Oxygen Delivery Method Room Air Room Air 01/19/23 08:50 01/19/23 08:50 Temperature 98.2 F Temperature Source Oral Pulse Rate 53 L Pulse Strength Respiratory Rate 18 Respiratory Effort Normal Non-Labored Respiratory Depth Normal Respiratory Pattern Normal Blood Pressure 109/58 L Blood Pressure Mean 75 Blood Pressure Source Blood Pressure Position Blood Pressure Location Pulse Ox 97 Oxygen Delivery Method Room Air Room Air Weight Weight: 181 lb 14.102 oz Body Mass Index (BMI) 31.2 ROS Eyes Eyes: Denies blurry vision, change in vision or spots in vision ENT HEENT: Denies dizziness or headache(s) Cardiovascular Cardiovascular: Denies abdominal pain, chest pain or dyspnea Respiratory/Chest Respiratory/Chest: Denies cough, dyspnea, shortness of breath at rest or shortness of breath with exertion Gastrointestinal Gastrointestinal: Reports abdominal pain, nausea, vomiting and other Details: RUQ pain Genitourinary Genitourinary: Denies change in urinary stream, difficulty urinating or dysuria Musculoskeletal Musculoskeletal: Reports none Integumentary Integumentary: Denies rash Neurologic Neurologic: Denies dizziness, headache(s), memory loss or weakness Psychiatric Psychiatric: Reports none Physical Exam Narrative Patient seen at bedside. Resting quietly. NPO but feeling hungry. No emesis today. Positive movement. Denies any pelvic pain, pressure, vaginal bleeding or loss of fluid. GI Inspection: gravid Palpation: Negative for tender Lab / Micro Data 01/19/23 06:53 01/19/23 06:53 Labs: Laboratory Results - last 24 hr 01/18/23 16:40: WBC 12.9 H, RBC 4.01 L, Hgb 12.4, Hct 35.7 L, MCV 89.0, MCH 30.9, MCHC 34.7 D, RDW Std Deviation 40.5, RDW Coeff of Court 12.5, Plt Count 255, MPV 10.4, Immature Gran % (Auto) 0.500, Neut % (Auto) 74.0 H, Lymph % (Auto) 18.4 L, [place] % (Auto) 5.3, Eos % (Auto) 1.2, Baso % (Auto) 0.6, Absolute Neuts (auto) 9.6 H, Absolute Lymphs (auto) 2.38, Nucleated RBC % 0, Sodium 137, Potassium 3.8, Chloride 103, Carbon Dioxide 25.0, Anion Gap 9, BUN 6 L, Creatinine 0.54 L, Estim Creat Clear Calc 143.31, Est GFR (MDRD) Af Amer 177, Est GFR (MDRD) Non-Af 146, BUN/Creatinine Ratio 11.2, Glucose 92, Calcium 9.9, Total Bilirubin 0.90, AST 35, ALT 58 H, Alkaline Phosphatase 73, Total Protein 7.8, Albumin 3.6, Globulin 4.2, Albumin/Globulin Ratio 0.9, Lipase 38 01/19/23 06:53: WBC 10.4, RBC 3.50 L, Hgb 10.5 L, Hct 32.0 L, MCV 91.4, MCH 30.0, MCHC 32.8 D, RDW Std Deviation 41.0, RDW Coeff of Court 12.4, Plt Count 211, MPV 10.9, Immature Gran % (Auto) 0.700, Neut % (Auto) 61.4, Lymph % (Auto) 29.1, [place] % (Auto) 6.2, Eos % (Auto) 1.9, Baso % (Auto) 0.7, Absolute Neuts (auto) 6.4, Absolute Lymphs (auto) 3.04, Nucleated RBC % 0, Sodium 140, Potassium 3.5, Chloride 107, Carbon Dioxide 26.0, Anion Gap 7, BUN 5 L, Creatinine 0.44 L, Estim Creat Clear Calc 168.78, Est GFR (MDRD) Af Amer 225, Est GFR (MDRD) Non-Af 186, BUN/Creatinine Ratio 11.5, Glucose 79, Calcium 8.9, Total Bilirubin 1.10 H, Direct Bilirubin 0.62 H, AST 16, ALT 45, Alkaline Phosphatase 62, Total Protein 6.6, Albumin 3.0 L, Globulin 3.6 Radiology Impression Gallbladder Ultrasound 01/18/23 16:36 IMPRESSION: Findings consistent with cholelithiasis and acute cholecystitis. Mildly dilated distal common bile duct without definitive evidence for intraductal stone. MRI/MRCP would be useful for further assessment if indicated Electronically Signed: Hamlet Alvarado MD at 18:46 EDT ,
[2023-01-19] MEDS: Pantoprazole Sodium 40 MG in 0.9% Normal Saline (100mL MB+) 100 ML 330 MG IV ×2 (11:39→21:44)
[2023-01-19] MEDS: oxyCODONE 5 MG Tablet PO (12:22)
[2023-01-19] MEDS: Acetaminophen 325 MG Tablet 650 MG PO (12:22)
[2023-01-19 14:28] VITALS: BP 115/61; PULSE 72; RESP 18; TEMP 36.9; O2SAT 98
--- NOTE | 2023-01-19 20:19 | NURSING ---
FHR 150-160 bpm; no discomfort or labor concerns noted per patient
[2023-01-20] MEDS: Lactated Ringers 1,000 ML 120 ML IV ×2 (00:03→07:32)
[2023-01-20 02:45] VITALS: BP 106/50; PULSE 64; RESP 16; TEMP 36.6; O2SAT 100
[2023-01-20] MEDS: Sucralfate 1 GM Tablet PO ×2 (06:06→11:22)
[2023-01-20 07:07] LABS: Absolute Lymphocyte Count 2.85 X10^3/uL (0.83-4.51); Absolute Neutrophil Count 5.2 X10^3/uL (2.0-7.7); Basophil# 0.08 X10^3/uL; Basophil% 0.9 % (0-1); Eosinophil# 0.29 X10^3/uL; Eosinophils% 3.2 % (0-5); Hematocrit 30.9 % (37-47); Hemoglobin 10.2 g/dL (12.0-15.0); Lymphocyte # 2.85 X10^3/ul (0.83-4.51); Lymphocyte % 31.5 % (19-41); Mean Corpuscular Hgb 30.2 pg (27.0-32.0); Mean Corpuscular Volume 91.4 fL (81-99); Mean Platelet Vol. 10.8 fl (6.2-12.0); Monocyte# 0.62 X10^3/uL; Monocyte% 6.9 % (0-10); NRBC Flagged by Analyzer 0 % (0-5); Neutrophil # 5.18 X10^3/uL (2.7-7.7); Neutrophil % 57.3 % (47-70); Platelet Count 218 K/mm3 (150-450); RBC Distribution Width CV 12.5 % (11.6-14.6); RBC Distribution Width SD 41.5 fl (35.1-43.9); Red Blood Count 3.38 M/mm3 (4.2-5.4)
[2023-01-20 07:27] LABS: AST(SGOT) 13 U/L (15-37); Alanine Aminotransfer ALT/SGPT 37 U/L (13-56); Albumin, Serum 2.9 g/dL (3.2-5.0); Alkaline Phosphatase 56 U/L (45-117); Anion Gap 6 (5-15); BUN 5 mg/dL (7-18); BUN/Creat Ratio 11.8 RATIO (10-20); Bilirubin, Direct 0.39 mg/dL (0.00-0.30); Calcium,Total 8.7 mg/dL (8.5-10.1); Chloride 108 mmol/L (98-107); Creatinine, Serum 0.42 mg/dL (0.55-1.02); EST Glomerular Filtration Rate 192 mL/min (>60); Est Glom Filt Rate - Afr Amer 233 mL/min (>60); Estimated Creatinine Clearance 176.82 ml/min; Globulin 3.4 g/dL (2.2-4.2); Glucose 77 mg/dL (74-106); Potassium 3.6 mmol/L (3.5-5.1); Protein, Total 6.3 g/dL (6.4-8.2); Sodium Level 140 mmol/L (136-145)
--- NOTE | 2023-01-20 07:51 | NURSING ---
FHR 160 to RLQ. Pt. reports positive movement.
[2023-01-20 07:57] VITALS: BP 98/52; PULSE 62; RESP 18; TEMP 36.8; O2SAT 96
--- NOTE | 2023-01-20 08:14 | PCM.PN.SRG ---
Subjective Subjective Patient was last time she had a pain meds was yesterday had 1 oxy. Patient tolerating clears Objective Data Objective Data Vital Signs: Vital Signs Temp Pulse Resp BP Pulse Ox O2 Del Method 98.3 F 62 18 98/52 L 96 Room Air 01/20/23 07:57 01/20/23 07:57 01/20/23 07:57 01/20/23 07:57 01/20/23 07:57 01/20/23 07:57 Oxygen Delivery Method Room Air Weight: 181 lb 14.102 oz Body Mass Index (BMI) 31.2 Intake & Output: Intake and Output for Last 24 Hours 01/18/23 01/19/23 01/20/23 23:59 23:59 23:59 Intake Total 1110 / 1110 2860 / 2860 898 / 898 Output Total 1100 / 1600 1200 / 1200 Balance 1110 / 1110 1760 / 1260 -302 / -302 Lab / Micro Data 01/20/23 06:20 01/20/23 06:20 Labs: Laboratory Results - last 24 hr 01/20/23 06:20: WBC 9.0, RBC 3.38 L, Hgb 10.2 L, Hct 30.9 L, MCV 91.4, MCH 30.2, MCHC 33.0, RDW Std Deviation 41.5, RDW Coeff of Court 12.5, Plt Count 218, MPV 10.8, Immature Gran % (Auto) 0.200, Neut % (Auto) 57.3, Lymph % (Auto) 31.5, [place] % (Auto) 6.9, Eos % (Auto) 3.2, Baso % (Auto) 0.9, Absolute Neuts (auto) 5.2, Absolute Lymphs (auto) 2.85, Nucleated RBC % 0, Sodium 140, Potassium 3.6, Chloride 108 H, Carbon Dioxide 26.0, Anion Gap 6, BUN 5 L, Creatinine 0.42 L, Estim Creat Clear Calc 176.82, Est GFR (MDRD) Af Amer 233, Est GFR (MDRD) Non-Af 192, BUN/Creatinine Ratio 11.8, Glucose 77, Calcium 8.7, Total Bilirubin 0.70, Direct Bilirubin 0.39 H, AST 13 L, ALT 37, Alkaline Phosphatase 56, Total Protein 6.3 L, Albumin 2.9 L, Globulin 3.4 Physical Exam Const oriented x3 and no apparent distress Resp normal respiratory effort Cardio regular rate GI soft to palpation GI Narrative: Mild tenderness in the epigastric no peritoneal signs Inspection: Negative for abdominal distention Assessment & Plan Assessment/Plan (1) Epigastric abdominal pain: (2) LUQ abdominal pain: (3) RUQ abdominal pain: (4) Gastritis: (5) Cholelithiasis: (6) : PLAN: Plan We will advance patient's diet to regular. Instruct patient to eat more city superintendent foods. If patient does well with diet would be able to be DC'd home with Protonix and Carafate. Continue Protonix and Carafate. Currently still thinking gallbladder is less likely as she reports she is tolerating clears normal white blood cell count, LFTs have normalized. Mikayla Cabral M.D. Pager: [phone] [facility] [address] [place] [address], [facility], [address] [place] [address] Office: [phone]
--- NOTE | 2023-01-20 08:26 | DCINST_ITS ---
Discharge Instructions Diet Discharge Diet: Light diet - advance as tolerated Follow Up Care Please Follow Up With: Mikayla Cabral MD When: 2 weeks --call office for appointment Test Results: Test results from this visit will be discussed in further detail at your follow- up appointment, if applicable. Discharge Plan Admission Admit Date/Time: 01/19/23 19:29 Attending Provider: Mikayla Cabral Primary Care Provider: Aurelia Will Consulting Providers: Julissa Meneses Discharge Orders/Prescriptions Prescriptions: New sucralfate [Carafate] 1 gram tablet 1 g PO .qid Qty: 56 1RF Rx Instructions: Take 1 hour before meals and at bedtime pantoprazole 40 mg tablet,delayed release (DR/EC) 40 mg PO DAILY Qty: 30 3RF Continued pantoprazole 40 mg tablet,delayed release (DR/EC) 40 mg PO DAILY Qty: 30 0RF Referrals / Follow Up: Aurelia Will MD [Primary Care Provider] - Disposition Disposition (needs filled in before D/C Order can be placed): Home, Self Care
[2023-01-20] MEDS: Pantoprazole Sodium 40 MG in 0.9% Normal Saline (100mL MB+) 100 ML 330 MG IV (11:22)
[2023-01-20 12:35] VITALS: BP 114/65; PULSE 85; RESP 18; TEMP 36.9; O2SAT 97
== END 2023-01-20 13:18 | disposition home or self-care (01) | DRG 566 ==
LOC: ED 17:00 → MS3 21:12
PROVIDERS: Admitting Provider Surgery; Emergency Provider Emergency Medicine; PCP Family Medicine; Visit Provider Surgery
DX: O99.612 Diseases of the digestive system complicating pregnancy, second trimester (principal); K29.70 Gastritis, unspecified, without bleeding; K80.20 Calculus of gallbladder without cholecystitis without obstruction; Z3A.23 23 weeks gestation of pregnancy; O21.2 Late vomiting of pregnancy
CPT/HCPCS: 36415; 76705; 80048; 80053; 80076; 81001; 83690; 85025; 94668; 99252; 99283; 99284; J7030; J7050; J7120; A4216; G0463; J2405; J3490

== ENCOUNTER 2023-01-22 14:58 | Observation (INO) | payer MEDICAID, SELFPAY ==
[2023-01-22] VITALS (10 sets, daily range): BP systolic 101–123; BP diastolic 46–81; PULSE 55–85; RESP 16–18; TEMP 36.4–37.2; O2SAT 96–100; BMI 31.3
[2023-01-22] MEDS: Lactated Ringers 1,000 ML 15 ML IV (11:33)
--- NOTE | 2023-01-22 11:40 | HP.PCM.SX_ITS ---
HPI - General General Date of Service: 01/22/23 HPI Narrative TENNILLE MONTIEL, is a 27 F who presents for lab scopic cholecystectomy due to cholelithiasis which is symptomatic. Patient is currently 23 weeks gestation. Patient did come into the ER this last Saturday and did stay until Saturday pain seem to be improved with Protonix and Carafate; however once patient went home she still continued to have mostly the epigastric discomfort and did get worse after eating. [facility] Medical History PCO (polycystic ovaries) PCOS (polycystic ovarian syndrome) Home Medications pantoprazole 40 mg tablet,delayed release 40 mg PO DAILY #30 tabs 01/17/23 [Rx Last Taken Unknown] sucralfate 1 gram tablet (Carafate) 1 g PO .qid #56 tabs 01/20/23 [Rx Last Taken Unknown] Allergy/AdvReac Type Severity Reaction Status Date / Time No Known Allergies Allergy Verified 01/22/23 11:19 Social History household members: spouse Smoking Status: Never smoker Vital Signs Vital Signs Vital Signs: 01/22/23 11:31 01/22/23 11:31 Temperature 98.9 F Temperature Source Temporal Pulse Rate 68 Respiratory Rate 16 Respiratory Pattern Normal Blood Pressure 123/46 H Blood Pressure Mean 71 Blood Pressure Source Monitor Blood Pressure Position Semi-Fowlers Blood Pressure Location Left Arm Pulse Ox 100 Oxygen Delivery Method Room Air Weight Weight: 182 lb 5.156 oz Body Mass Index (BMI) 31.3 Physical Exam Const alert, oriented x3 and no apparent distress HEENT normocephalic and head/scalp atraumatic Resp normal respiratory effort Cardio regular rate GI soft to palpation; Negative for non-distended GI Narrative: Protuberant abdomen up to umbilicus consistent with 23 weeks. Palpation: tender epigastric and RUQ; Negative for guarding Extremity no clubbing, cyanosis or edema Neuro CN's II-XII intact bilaterally Psych mental status grossly normal Assessment & Plan Assessment/Plan (1) Cholelithiasis: (2) Epigastric abdominal pain: (3) RUQ abdominal pain: (4) : PLAN: Plan Reviewed the anatomy with the patient and discussed the procedure: laparoscopic cholecystectomy possible cholangiograms. Currently checking LFTs if those are normal and not planning cholangiograms as I would increase radiation to the fetus. Review risks including but not limited to bleeding, infection, hernia, bile leak, retained gallstones requiring another procedure ERCP- Endoscopic Retrograde Cholangiopancreatography, injury to another organ (bile ducts, common bile duct, small bowel, etc.), risks to the fetus and conversion to an open procedure. Patient and her no further question this time. Postoperatively we will have patient continue on her Carafate for at least 1 week and the Protonix for 2 weeks. Mikayla Cabral M.D. Pager: [phone] [facility] [address] [place] [address], [address] [place] [address] Office: [phone]
--- NOTE | 2023-01-22 11:54 | NURSING ---
OB NURSE CAME TO BEDSIDE TO LISTEN FOR HEART TONES, PER OB ACUTE CARE SURGEON TONES ARE PRESENT.
[2023-01-22 12:00] LABS: AST(SGOT) 71 U/L (15-37); Alanine Aminotransfer ALT/SGPT 111 U/L (13-56); Albumin, Serum 3.3 g/dL (3.2-5.0); Alkaline Phosphatase 102 U/L (45-117); Bilirubin, Direct 1.74 mg/dL (0.00-0.30); Globulin 3.9 g/dL (2.2-4.2); Protein, Total 7.2 g/dL (6.4-8.2)
[2023-01-22] MEDS: Cefazolin 2 GM in 0.9% Normal Saline (100mL Bag) 100 ML IV (13:19)
--- NOTE | 2023-01-22 13:30 | GALL_PTH ---
PATIENT: TENNILLE MONTIEL LOC: MS3 U#:[id number] AGE/SX: 27/F ROOM: IL308 RE01/22/[address]: Dr. Mikayla Cabral MD : 1995 BED: 1 DIS: 01/22/2023 SPEC #: [id number] RECD: 01/22/23 18:13 STATUS: CARLINE ANTHONY #: [id number] AMANDEEP: 01/22/23 13:[address]: Mikyala Cabral DEPT: SURGICAL PATHOLOGY RECD BY: Janiya Nazario ENTERED: 01/23/23 08:32 SP TYPE: ALIZA BYRNE DR: Dr. Aurelia Will MD Tissues: Gallbladder, NOS Procedures: Surgery Specimen Level III HEADER OPERATION: Laparoscopic cholecystectomy with IOC PRE-OP DIAGNOSIS: Cholelithiasis, epigastric pain, RUQ pain, TISSUE SUBMITTED: Gallbladder MICROSCOPIC DIAGNOSIS Gallbladder, cholecystectomy: Acute and chronic cholecystitis, cholelithiasis and cholesterolosis. JUVENAL:sandor 01/24/2023 MICROSCOPIC DESCRIPTION Slides are reviewed. GROSS DESCRIPTION Received is one container labeled with the patient's name and designated gallbladder. The specimen consists of a gallbladder measuring 8.0 cm in length and up to 3.0 cm in diameter. The external surface is pink-solitario, smooth and glistening for the most part. Focally it is granular, hemorrhagic and contains cautery artifact. The gallbladder contains green-yellow mucoid bile and multiple mulberry, yellow stones measuring in aggregate 2.0 x 2.0 x 0.3 cm and 0.3 cm in greatest dimension. The mucosa is bile-stained and without any mass lesions. The gallbladder wall measures up to 0.4 cm in thickness. Gas Meter Checker sections from the gallbladder and the cystic duct are submitted in one cassette. / JUVENAL:sandor 01/23/2023 TC:2 CPT: 31026
--- NOTE | 2023-01-22 13:37 | RAD_ITS ---
STUDY: INTRAOPERATIVE CHOLANGIOGRAM.. REASON FOR EXAM: Female, 27 years old. LAP ANNIE WITH IOC FLUOROSCOPY TIME (if supplied): ( 47 seconds ) minutes/seconds. 20.19 mGy TECHNIQUE: An intraoperative Cholangiogram was performed by the surgeon. Imaging was submitted. COMPARISON: None. FINDINGS: There is dilatation of the common bile duct. No full of contrast is seen entering the common bile duct. A distal common bile duct stone should be ruled out. RAD/Cholangiogram/ O R,Initial IMPRESSION: Dilated common bile duct with no flow of contrast into the duodenum suggestive of a calculus in the distal portion of the common bile duct Electronically Signed: Sean Becerra MD at 8:52 EDT ,
[2023-01-22] MEDS: Bupivacaine 0.5% PF 10 ML VIAL (14:54)
--- NOTE | 2023-01-22 14:55 | PCM.OPRPT ---
Report of Operation Date of Procedure: 01/22/23 Pre-Operative Diagnosis: Cholelithiasis, elevated liver functions Post-Operative Diagnosis: Acute cholecystitis, choledocholithiasis Surgery/Procedure Performed:: Laparoscopic cholecystectomy with cholangiograms Description of Surgical Findings:: No filling of the duodenum from the common bile duct on cholangiogram consistent with choledocholithiasis Surgeon: Mikayla Cabral Type of Anesthesia: Local MAC Anesthesiologist: Eduardo Meredith Special Medications: Ancef 2 g IV x1 Specimen's removed: Gallbladder and stones Estimated Blood Loss (mL): 10 cc Description of Procedure: Indications: this is a 27 year-old female who developed abdominal pain/nausea/vomiting and on workup was found to have cholelithiasis, elevated liver functions, with a normal common bile duct?patient is 23 weeks gestation. Laparoscopic cholecystectomy was elected. Description procedure: The patient was placed on operating table in supine position. A timeout was completed verifying correct patient, procedure, site, position and special equipment prior to beginning procedure. Blood shield placed underneath the patient up into her umbilicus to reduce the radiation to the fetus. General Anesthesia was induced. The abdomen was prepped and draped in usual sterile fashion. An incision was made in the natural skin line above the umbilicus. The fascia was elevated and incised. The peritoneum was elevated and incised. Entry into the peritoneum was confirmed visually and no bowel was noted in the vicinity of the incision. Sexton trocar was placed. The abdomen was insufflated with carbon dioxide to a pressure of 12-15 mmHg. Patient tolerated insufflation well. The laparoscope was then inserted and abdomen inspected. No injuries from initial trocar placement were noted. Additional trochars were then inserted in the following locations 5 mm trocar in the epigastrium and 2 more 5 mm trochars along the right costal margin. The abdomen was inspected no abnormalities were found. The table is placed in reverse Trendelenburg position with the right side up. The gallbladder was noted to be tense and was decompressed with needle decompression. The dome of the gallbladder was grasped with atraumatic grasper passed through the lateral port and retracted over the dome of the liver. Infundibulum was then grasped with atraumatic grasper through the midclavicular port and retracted to the right lower quadrant. This maneuver exposed Calot's triangle. The peritoneum overlying the gallbladder infundibulum was then incised and cystic duct and artery identified and circumferentially dissected. Additional right upper quadrant incision was made for the the Ranfac catheter. Ranfac catheter was used for cholangiograms. The cholangiogram showed good filling of the common bile duct into and the right and left bile ducts; however, no filling into the duodenum even after giving 1 mg of glucagon and waiting for a minute. The cystic duct and artery were then doubly clipped and divided close to the gallbladder. The gallbladder then dissected from its peritoneal attachments by electrocautery. Hemostasis was checked and the gallbladder and contained stones were removed using the endoscopic retrieval bag through the umbilical port. The gallbladder is passed off table as specimen. The gallbladder fossa was irrigated with saline and hemostasis obtained. There is no evidence of bleeding from the gallbladder fossa or cystic artery leakage of bile from the cystic duct stump. Secondary trochars removed under direct vision. No bleeding was noted the trocar sites. The laparoscope was withdrawn and umbilical trocar removed. The abdomen was allowed to collapse. The fascia of the 12 mm trocar was closed with a [id number] 0 PDS suture. The skin was closed with sutures of 4-0 Monocryl and Steri-Strips. The patient was extubated. The patient tolerated procedure well and was taken to the postanesthesia care unit in stable condition. Complications none
--- NOTE | 2023-01-22 15:25 | PCM.DC.SUM ---
Providers Date of Admission: 01/22/23 Primary Care Physician: Dr. Aurelia Will MD Diagnosis Discharge Diagnosis (1) Cholelithiasis: Status: Acute Code(s): K80.20 - Calculus of gallbladder without cholecystitis without obstruction (2) Epigastric abdominal pain: Status: Acute Code(s): R10.13 - Epigastric pain (3) : Status: Acute Code(s): Z34.90 - Encounter for supervision of normal , unspecified, unspecified trimester (4) Acute cholecystitis: Status: Acute Code(s): K81.0 - Acute cholecystitis (5) S/P laparoscopic cholecystectomy: Status: Acute Code(s): Z90.49 - Acquired absence of other specified parts of digestive tract (6) Elevated LFTs: Status: Acute Code(s): R79.89 - Other specified abnormal findings of blood chemistry (7) Choledocholithiasis: Status: Acute Code(s): K80.50 - Calculus of bile duct without cholangitis or cholecystitis without obstruction Plan Reviewed the anatomy with the patient and discussed the procedure: laparoscopic cholecystectomy possible cholangiograms. Currently checking LFTs if those are normal and not planning cholangiograms as I would increase radiation to the fetus. Review risks including but not limited to bleeding, infection, hernia, bile leak, retained gallstones requiring another procedure ERCP- Endoscopic Retrograde Cholangiopancreatography, injury to another organ (bile ducts, common bile duct, small bowel, etc.), risks to the fetus and conversion to an open procedure. Patient and her no further question this time. Postoperatively we will have patient continue on her Carafate for at least 1 week and the Protonix for 2 weeks. Addendum: Patient's cholangiogram showed nonfilling into the duodenum from the common bile duct. Mikayla Cabral M.D. Pager: [phone] [facility] [address] [place] [address], [address] [place] [address] Office: [phone] Medications at Discharge Home Medications pantoprazole 40 mg tablet,delayed release 40 mg PO DAILY #30 tabs 01/17/23 sucralfate 1 gram tablet (Carafate) 1 g PO .qid #56 tabs 01/20/23 Hospital Course Operations cholecystecomy Summary of Care Provided Minutes Spent on Discharge: 15 Hospital Course: 27-year-old female presented for laparoscopic cholecystectomy due to cholelithiasis and continued epigastric right upper quadrant pain. Patient is 23 weeks . During laparoscopic cholecystectomy cholangiograms were done with a Ranfac catheter with showed nonfilling into the duodenum even after giving glucagon 1 mg. Patient will likely need an ERCP and will need transfer to her tertiary care facility. Discussed with and patient's mom they decided on [facility]. accepted by Dr. Thea Gomez MD-general surgery Physical Exam Const oriented x3 Resp normal respiratory effort Cardio regular rate GI soft to palpation GI Narrative: Incision clean dry and intact with dressings, protuberant abdomen consistent with 23 weeks gestation Weight / BMI Weight Weight: 182 lb 5.156 oz Body Mass Index (BMI) 31.3 ABG / Lab / Microbiology Data Laboratory: Laboratory Results - last 24 hr 01/22/23 11:20: Total Bilirubin 2.20 H, Direct Bilirubin 1.74 H, AST 71 H, ALT 111 H, Alkaline Phosphatase 102, Total Protein 7.2, Albumin 3.3, Globulin 3.9 Meaningful Use Info Meaningful Use Diagnoses (Choose all that apply): None applicable Discharge Plan Admission Admit Date/Time: 01/22/23 14:58 Attending Provider: Mikayla Cabral Primary Care Provider: Aurelia Will Discharge Orders/Prescriptions Prescriptions: No Action pantoprazole 40 mg tablet,delayed release (DR/EC) 40 mg PO DAILY Qty: 30 0RF sucralfate [Carafate] 1 gram tablet 1 g PO .qid Qty: 56 1RF Rx Instructions: Take 1 hour before meals and at bedtime Referrals / Follow Up: Aurelia Will MD [Primary Care Provider] - Disposition Disposition (needs filled in before D/C Order can be placed): [facility]
--- NOTE | 2023-01-22 16:23 | SUR.PHASEI ---
CHUCKIE, CLERICAL ADJUDICATOR FROM [facility] CHECKED HEART TONES AT [address] Cabral notified via Between.
[2023-01-22] MEDS: Pantoprazole Sodium 40 MG in 0.9% Normal Saline (100mL MB+) 100 ML 330 MG IV (17:35)
[2023-01-22] MEDS: 0.9% Normal Saline (1000mL) 1,000 ML 120 ML IV (17:40)
[2023-01-22] MEDS: Ondansetron 4 MG/2 ML Vial IV (17:49)
[2023-01-22] MEDS: 0.9% Saline Lock 10 ML Syringe IV ×2 (17:49→21:40)
[2023-01-22] MEDS: Piperacil/Tazobactam 3.375 GM in 0.9% Normal Saline (50mL MB+) 50 ML IV (18:12)
[2023-01-22] MEDS: oxyCODONE 5 MG Tablet PO (18:19)
[2023-01-22] MEDS: Acetaminophen 325 MG Tablet 650 MG PO (18:19)
--- NOTE | 2023-01-22 20:15 | NURSING ---
Late entry: FHR pre-op around 1130 was 160's. Post-op FHR was 135's in PACU at 1630. Naina matthews RN aware she will need FHR q shift as pt will in room 308 overnight. 23 wk gest post-op. CON Zapata
--- NOTE | 2023-01-22 21:12 | NURSING ---
FHT obtained in RLQ of abdomen =152. Abdomen palpates soft. Patient denies contractions and none palpated per RN.
[2023-01-22] MEDS: HYDROmorphone 1 MG/ML Syringe IV (21:38)
--- NOTE | 2023-01-22 22:13 | NURSING ---
This nurse received call from Maribell with the transfer line at [facility] and notified that pt has a bed at [facility] 5216 and to call [phone] for report after transport is set. byron Juarez RN prepared paperwork and arranged transport and was notified it would be between 2300 and 0000. This nurse started Zosyn at 2150 but [facility] arrived at 2207 to transport pt and IV was saline Locked at 2210 as the transporters report that they are basic and are unable to run IV transfusions during transport. This nurse provided report to transporters. This nurse called report at 2214 to Renetta at [facility]. Notified her of last doses of medications and that she has not had a full dose of IV antibiotics and advised that the physician may want to order antibiotics upon arrival. Notified of recent vitals at 2124, surgery today with 5 laps sites all intact with 1 near sternum with pin point drainage that has been outlined. Notified that transport is here and bringing patient at this time. Understanding verified.
--- NOTE | 2023-01-22 23:17 | NURSING ---
at 1930 was at nurses station requesting to know what he should take home and what he should leave. Pt advised to take her purse and whatever he wants to be sure is not lost. took her purse and clothing home and left her cell phone with her. returned to pt's room. This nurse began rounding and was standing in hallway waiting on nurse stating that the baby's heart rate needs to be checked as pt has not felt the baby move. this nurse called [facility] and nurse came to complete heart tones. Pt reports that the baby's heart rate was fine and that the baby was just sleeping.
== END 2023-01-22 22:15 | disposition short-term general hospital (02) ==
LOC: SDC 15:23 → MS3 15:23
PROVIDERS: Admitting Provider Surgery; PCP Family Medicine; Referring Provider Surgery; Visit Provider Surgery
PROC: (CPT 47610; principal; 2023-01-22 13:10)
DX: O26.612 Liver and biliary tract disorders in pregnancy, second trimester (principal); Z3A.23 23 weeks gestation of pregnancy; K80.66 Calculus of gallbladder and bile duct with acute and chronic cholecystitis without obstruction
CPT/HCPCS: 47563; 00790; 74300; 76000; 80076; 88304; 96365; 96366; 96367; 96375; J7030; J7120; A4216; J1610; J2405

== ENCOUNTER 2023-05-06 13:07 | Inpatient (IN) | payer MEDICAID, SELFPAY ==
[2023-05-06] VITALS (45 sets, daily range): BP systolic 93–132; BP diastolic 51–79; PULSE 54–212; RESP 16; TEMP 36.2–37.3; O2SAT 83–100; BMI 35.6
--- OUTSIDE RECORDS SUMMARY | 2023-05-06 12:48 | XMS RPT_ITS | CCD ---
Author Name Unknown Address [address] [place] [address] Organization [facility] Care Team Providers [facility] Director Name Role Phone COCO ORANTES Unavailable Unavailable REFERRED, SELF Unavailable Unavailable COCO ORANTES Unavailable Unavailable Aurelia Farmer Unavailable Unavailable Unavailable Aurelia Farmer MD Primary Care Provider Dr. Aurelia Farmer Referring Unavail able Suman, Dr. Aurelia Garcia Attending Unavail able Suman, Dr. Aurelia Garcia Primary [facility] Unavail able Suman, Dr. Aurelia Garcia Attending Unavail able Suman, Dr. Aurelia Garcia [facility] Unavail able Suman, Dr. Aurelia Garcia Referring Unavail able Suman, Dr. Aurelia Garcia [facility] Unavail able SHERRY BOWSER Attending Unavailable SHERRY BOWSER Referring Unavailable Suman, Dr. Aurelia Garcia Referring Unavail able Suman, Dr. Aurelia Garcia Primary [facility] Unavail able Wilfredo, Dr. Kevin Hazel Attending Unavailsamuel Farmer, Dr. Aurelia Garcia Primary [facility] Unavail able Wilfredo, Dr. Kevin Hazel Attending Unavailsamuel e Wilfredo, Dr. Kevin Hazel Referring Unavailsamuel Farmer, Dr. Aurelia Garcia Primary [facility] Unavail able Wilfredo, Dr. Kevin Hazel Attending Unavailsamuel e Wilfredo, Dr. Kevin Hazel Referring Unavailsamuel Farmer, Dr. Aurelia Garcia [facility] Unavail able Wilfredo, Dr. Kevin Hazel Referring Unavailsamuel e Wilfredo, Dr. Kevin Hazel Attending Unavailsamuel Farmer, Dr. Aurelia Garcia Primary [facility] Unavail able Wilfredo, Dr. Kevin Hazel Attending Unavailsamuel Farmer, Dr. Aurelia Garcia Primary Care Unavail able Wilfredo, Dr. Kevin Hazel Attending Unavailabl e Suman, Dr. Aurelia Garcia Attending Unavail able Suman, Dr. Aurelia Garcia Primary Care Unavail able Suman, Dr. Aurelia Garcia Referring Unavail able Suman, Dr. Aurelia Garcia Primary Care Unavail able Suman, Dr. Aurelia Garcia Referring Unavail able Suman, Dr. Aurelia Garcia Attending Unavail able Suman, Dr. Aurelia Garcia Referring Unavail able Suman, Dr. Aurelia Garcia Attending Unavail able Suman, Dr. Aurelia Garcia Primary Care Unavail able Aurelia Farmer MD Primary Care Provider Unavailable Primary Care Provider UnavailAURELIA Salvador Primary Care Unavailable SONJA HIGH Referring Unavailab DESEAN Gomez Attending Unavailab AURELIA Sharp Primary Care Unavailable SHERRY BOWSER Referring Unavailable SONJA HIGH Attending Unavailab SONJA Perez Admitting Unavailab AURELIA Sharp Primary Care Unavailable AURELIA FARMER Primary Care Unavailable SONJA HIGH Attending Unavailab BHUPINDER Chiu Attending Unavailable AURELIA FARMER Primary Care Unavailable PREMA LLOYD Attending Unavailable PREMA LLOYD Admitting Unavailable MELANIE PETERSEN Referring Unavailable Aurelia Farmer MD Primary Care Provider AURELIA FARMER Attending Unavailable AURELIA FARMER Primary Care Unavailable ARTURO VILLAFANA Attending Unavailable ARTURO VILLAFANA Referring Unavailable ARTURO VILLAFANA Attending Unavailable ARTURO VILLAFANA Referring Unavailable ARTURO VILLAFANA Referring Unavailable JODY PINEDA Attending Unavail able LUIS DANIEL ANDRADE Attending Unavailable ARTURO VILLAFANA Attending Unavailable ARTURO VILLAFANA Referring Unavailable SABA SAM Attending Unavailable GEENA WELLINGTON Attending Unavailable GEENA WELLINGTON Attending Unavailable JODY PINEDA Attending Unavail able ARTURO VILLAFANA Referring Unavailable JODY PINEDA Attending Unavail able MARIBELL AMIN Attending Unavailable IBETH BRANHAM Attending Unavailable CHRISTIN LOUISE Referring Unavailable ARTURO VILLAFANA Attending Unavailable LEDY, ARTURO L Attending Unavailable LEDY, ARTURO L Referring Unavailable LEDY, ARTURO L Attending Unavailable LEDY, ARTURO L Attending Unavailable LEDY, ARTURO L Referring Unavailable LEDY, ARTURO L Attending Unavailable MARIBELL AMIN Attending Unavailable GEENA WELLINGTON Referring Unavailable JODY PINEDA Referring Unavail able Allergies Allergy Classification Reported Allergen(s) Allergy Type Date of Onset Reaction(s) Facility (16 sources) [facility] Allergy to substance (finding) [facility] and Work Phone: (20 sources) Seasonal allergy; Translations: [SEASONAL ALLERGIES] Allergy to substance 3 Cough, Other: See Comments [facility] (20 sources) Animal Dander; Translations: [ANIMAL DANDER] Drug Allergy 6 Cough, Hives, Itching, Rash, Shortness of Breath, Runny nose, Swelling, Wheezing [facility] Medications Current Medications Medication Drug Class(es) Dates Sig (Normalized) Sig (Original) 5-hydroxytryptophan 100 mg oral capsule (3 sources) End: 11-23-2022 5-hydroxytryptophan , 5-HTP, 100 mg cap Take by mouth . 0 11/23/2022 Discontinued ASHWAGANDHA ROOT EXTRACT ORAL (3 sources) End: 11-23-2022 take 1200 mg by mouth once daily ASHWAGANDHA ROOT EXTRACT ORAL Take 1,200 mg by mouth once daily . 0 11/23/2022 Discontinued Completed/Discontinued Medications Medication Drug Class(es) Dates Sig (Normalized) Sig (Original) 5-hydroxytryptophan , 5-HTP, (5-HTP ORAL) (5 sources) End: 09-27-2022 5-hydroxytryptophan, 5-HTP, (5-HTP ORAL) Take by mouth. 0 09/27/2022 Discontinued Problems Active Problems Problem Classification Problem Date Documented Da te Episodic/Chronic Abdominal pain (5 sources) Indigestion; Translations: [Dyspepsia and other specified disorders of function of stomach] Episodic Anxiety disorders (1 source) Mixed anxiety and depressive disorder; Translations: [Other specified anxiety disorders] 01-02-2023 Chronic Biliary tract disease (6 sources) Cholangiectasis; Translations: [Other specified diseases of biliary tract] Onset: 01-23-2023 01-23-2023 Chronic Biliary tract disease (1 source) Calculus of bile duct without cholangitis or cholecystitis without obstruction; Translations: [Choledocholithiasis] Onset: 01-23-2023 Episodic Cancer of cervix (13 sources) Abnormal cytological finding in specimen from female genital organ; Translations: [Papanicolaou smear of cervix with atypical squamous cells cannot exclude high grade squamous intraepithelial lesion (ASC-H)] Episodic Esophageal disorders (2 sources) Gastro-esophageal reflux disease without esophagitis; Translations: [Gastro-esophageal reflux disease without esophagitis] Onset: 11-19-2022 Chronic Malaise and fatigue (7 sources) Fatigue; Translations: [Other malaise and fatigue] Episodic Menstrual disorders (12 sources) Amenorrhea; Translations: [Absence of menstruation] Onset: 06-12-2022 Chronic Nutritional deficiencies (6 sources) Undernutrition; Translations: [Mild protein-calorie malnutrition] Onset: 01-23-2023 01-23-2023 Chronic Other complications of (14 sources) Obesity; Translations: [Obesity complicating , unspecified trimester] Onset: 10-31-2022 10-31-2022 Chronic Other complications of (1 source) Maternal obesity complicating , childbirth and the puerperium, antepartum; Translations: [Obesity complicating , second trimester] 12-18-2022 Chronic Other complications of (3 sources) Anemia of ; Translations: [Anemia complicating , second trimester] Onset: 04-26-2023 03-08-2023 Chronic Other complications of (1 source) Anemia in mother complicating , childbirth AND/OR puerperium; Translations: [Anemia complicating , third trimester] 05-03-2023 Chronic Other complications of (1 source) Obesity complicating , third trimester; Translations: [Obesity affecting in third trimester, unspecified obesity type] Onset: 04-30-2023 Chronic Other complications of (1 source) Anemia complicating , second trimester; Translations: [Anemia during in second trimester] Onset: 02-22-2023 Chronic Other complications of (1 source) Obesity complicating , unspecified trimester; Translations: [Obesity in ] Onset: 10-31-2022 Chronic Other complications of (11 sources) Nausea and vomiting; Translations: [Vomiting of , unspecified] Onset: 09-24-2022 Episodic Other complications of (7 sources) High risk ; Translations: [Supervision of high risk , unspecified, second trimester] Onset: 02-22-2023 02-22-2023 Episodic Other complications of (1 source) Supervision of high risk , unspecified, third trimester; Translations: [Encounter for supervision of high risk in third trimester, antepartum] Onset: 04-30-2023 Episodic Other complications of (1 source) Supervision of high risk , unspecified, second trimester; Translations: [Supervision of high risk in second trimester] Onset: 02-22-2023 Episodic Other endocrine disorders (19 sources) Polycystic ovary syndrome; Translations: [Polycystic ovaries] Onset: 07-20-2022 Chronic Other endocrine disorders (7 sources) Polycystic ovarian syndrome; Translations: [Polycystic ovarian syndrome] Onset: 08-22-2021 Chronic Other endocrine disorders (1 source) Polycystic ovary; Translations: [Polycystic ovarian syndrome] Chronic Other female genital disorders (4 sources) Abnormal uterine bleeding; Translations: [Unspecified disorders of menstruation and other abnormal bleeding from female genital tract] Chronic Other gastrointestinal disorders (1 source) Personal history of other diseases of the digestive system; Translations: [History of acute pancreatitis] Onset: 04-30-2023 Episodic Other liver diseases (12 sources) Steatosis of liver; Translations: [Other chronic nonalcoholic liver disease] Chronic Other liver diseases (5 sources) Enzyme level - finding; Translations: [Nonspecific elevation of levels of transaminase or lactic acid dehydrogenase [LDH]] Episodic Other nutritional; endocrine; and metabolic disorders (14 sources) Body mass index 30+ - obesity; Translations: [Body Mass Index 36.0-36.9, adult] Chronic Other nutritional; endocrine; and metabolic disorders (15 sources) Cholesterol level - finding; Translations: [Lipoprotein deficiencies] Chronic Other nutritional; endocrine; and metabolic disorders (11 sources) Severe obesity; Translations: [Morbid obesity] Chronic Other nutritional; endocrine; and metabolic disorders (12 sources) Obese class II; Translations: [Obesity, unspecified] Onset: 06-12-2022 06-12-2022 Chronic Other skin disorders (2 sources) Eruption; Translations: [Rash and other nonspecific skin eruption] Episodic Polyhydramnios and other problems of amniotic cavity (3 sources) Polyhydramnios; Translations: [Polyhydramnios, third trimester, not applicable or unspecified] Onset: 05-01-2023 05-01-2023 Episodic Residual codes; unclassified (13 sources) Past history of procedure; Translations: [Other postprocedural status] Episodic Past or Other Problems Problem Classification Problem Date Documented Da te Episodic/Chronic Other complications of (13 sources) First trimester ; Translations: [Supervision of with history of infertility, first trimester] Onset: 09-24-2022 Episodic Other complications of (2 sources) with inconclusive viability, not applicable or unspecified; Translations: [ with inconclusive viability] Onset: 10-31-2022 Episodic Other complications of (6 sources) Abdominal pain in ; Translations: [Other specified related conditions, unspecified trimester] Onset: 01-23-2023 01-23-2023 Episodic Other complications of (1 source) Supervision of with history of infertility, first trimester; Translations: [ in first trimester with history of infertility, antepartum] Onset: 09-24-2022 Episodic Other complications of (1 source) Vomiting of , unspecified; Translations: [Nausea and vomiting during ] Onset: 09-24-2022 Episodic Other and delivery including normal (8 sources) with uncertain dates; Translations: [Encounter for supervision of normal , unspecified, first trimester] Onset: 10-31-2022 Episodic Other screening for suspected conditions (not mental disorders or infectious disease) (18 sources) test negative; Translations: [ examination or test, negative result] Onset: 10-18-2021 Episodic Pancreatic disorders (not diabetes) (5 sources) Acute pancreatitis; Translations: [Acute pancreatitis without necrosis or infection, unspecified] Onset: 01-23-2023 01-24-2023 Episodic Residual codes; unclassified (17 sources) FH: Muscular dystrophy; Translations: [Family history of epilepsy and other diseases of the nervous system] Onset: 09-24-2022 Episodic Residual codes; unclassified (2 sources) Gestation period, 37 weeks; Translations: [37 weeks gestation of ] Onset: 01-23-2023 04-26-2023 Episodic Residual codes; unclassified (1 source) 16 weeks gestation of ; Translations: [16 weeks gestation of ] Onset: 11-28-2022 Episodic Residual codes; unclassified (1 source) Family history of epilepsy and other diseases of the nervous system; Translations: [Family history of muscular dystrophy] Onset: 09-24-2022 Episodic Screening and history of mental health and substance abuse codes (18 sources) H/O: anxiety state; Translations: [Personal history of other mental and behavioral disorders] Onset: 09-24-2022 Episodic Unclassified (16 sources) Chronic disease absent; Translations: [No chronic problems] Unclassified (13 sources) Finding of menstrual bleeding; Translations: [Menstruation] Results Test Name Value Interpretation Reference Range Facil ity Vital Signs Date Time Vital Sign Value Performing Clinician Shyla browne 05-03-2023 10:37-0500 Body weight 95.71 kg Arturo Villafana MD Work Phone: [facility] 05-03-2023 10:37-0500 Diastolic blood pressure 70 mm[Hg] Arturo Villafana MD Work Phone: [facility] 05-03-2023 10:37-0500 Systolic blood pressure 122 mm[Hg] Arturo Villafana MD Work Phone: [facility] 03-08-2023 15:54-0500 Body weight 88 kg Jody Hernandez MD Work Phone: [facility] 03-08-2023 15:54-0500 Diastolic blood pressure 60 mm[Hg] Jody Hernandez MD Work Phone: [facility] 03-08-2023 15:54-0500 Systolic blood pressure 110 mm[Hg] Jody Hernandez MD Work Phone: [facility] 02-22-2023 15:10-0500 Body weight 86.64 kg Maribell Amin APRN.CNM Work Phone: [facility] 02-22-2023 15:10-0500 Diastolic blood pressure 64 mm[Hg] Maribell Amin APRN.CNM Work Phone: [facility] 02-22-2023 15:10-0500 Systolic blood pressure 110 mm[Hg] Maribell Amin RESEARCH CENTER PARTNER.CNM Work Phone: [facility] 02-14-2023 09:56-0500 Body height 162.6 cm Aurelia Farmer MD Work Phone: [facility] 02-14-2023 09:56-0500 Body mass index (BMI) [Ratio] 32.39 kg/m2 Aurelia Farmer MD Work Phone: [facility] 02-14-2023 09:56-0500 Body weight 85.59 kg Aurelia Farmer MD Work Phone: [facility] 02-14-2023 09:56-0500 Diastolic blood pressure 64 mm[Hg] Aurelia Farmer MD Work Phone: [facility] 02-14-2023 09:56-0500 Heart rate 76 /min Aurelia Farmer MD Work Phone: [facility] 02-14-2023 09:56-0500 Systolic blood pressure 118 mm[Hg] Aurelia Farmer MD Work Phone: [facility] 01-02-2023 13:23-0400 Body weight 83.46 kg Jody Hernandez MD Work Phone: [facility] 01-02-2023 13:23-0400 Diastolic blood pressure 70 mm[Hg] Jody Hernandez MD Work Phone: [facility] 01-02-2023 13:23-0400 Systolic blood pressure 102 mm[Hg] Jody Hernandez MD Work Phone: [facility] 11-28-2022 16:19-0400 Body weight 81.65 kg Geena Wellington RESEARCH CENTER PARTNER.CNM Work Phone: [facility] 11-28-2022 16:19-0400 Diastolic blood pressure 70 mm[Hg] Geena Wellington RESEARCH CENTER PARTNER.CNM Work Phone: [facility] 11-28-2022 16:19-0400 Systolic blood pressure 112 mm[Hg] Geena Wellington RESEARCH CENTER PARTNER.CNM Work Phone: [facility] 11-23-2022 09:02-0400 Body mass index (BMI) [Ratio] 30.55 kg/m2 Sonja High BILLET SHEARER Work Phone: [facility] 11-23-2022 09:02-0400 Body weight 80.74 kg Sonja High BILLET SHEARER Work Phone: [facility] 11-23-2022 09:02-0400 Diastolic blood pressure 71 mm[Hg] Sonja High BILLET SHEARER Work Phone: [facility] 11-23-2022 09:02-0400 Heart rate 79 /min Sonja High BILLET SHEARER Work Phone: [facility] 11-23-2022 09:02-0400 Systolic blood pressure 106 mm[Hg] Sonja High BILLET SHEARER Work Phone: [facility] 10-31-2022 09:30-0400 Body weight 80.29 kg Jody Hernandez MD Work Phone: [facility] 10-31-2022 09:30-0400 Diastolic blood pressure 70 mm[Hg] Jody Hernandez MD Work Phone: [facility] 10-31-2022 09:30-0400 Systolic blood pressure 104 mm[Hg] Jody Hernandez MD Work Phone: [facility] 10-12-2022 11:14-0400 Body weight 82.56 kg Arturo Villafana MD Work Phone: [facility] 10-12-2022 11:14-0400 Diastolic blood pressure 68 mm[Hg] Arturo Villafana MD Work Phone: [facility] 10-12-2022 11:14-0400 Systolic blood pressure 116 mm[Hg] Arturo Villafana MD Work Phone: [facility] 09-27-2022 10:18-0400 Body height 162.6 cm Arturo Villafana MD Work Phone: [facility] 09-27-2022 10:18-0400 Body weight 83.92 kg Arturo Villafana MD Work Phone: [facility] 09-27-2022 10:18-0400 Diastolic blood pressure 70 mm[Hg] Arturo Villafana MD Work Phone: [facility] 09-27-2022 10:18-0400 Systolic blood pressure 122 mm[Hg] Arturo Villafana MD Work Phone: [facility] 07-20-2022 09:45-0400 Body mass index (BMI) [Ratio] 34.16 kg/m2 Sonja High CNP Work Phone: [facility] 07-20-2022 09:45-0400 Body weight 90.27 kg Sonja High BILLET SHEARER Work Phone: [facility] 07-20-2022 09:45-0400 Diastolic blood pressure 75 mm[Hg] Sonja High BILLET SHEARER Work Phone: [facility] 07-20-2022 09:45-0400 Heart rate 58 /min Sonja High BILLET SHEARER Work Phone: [facility] 07-20-2022 09:45-0400 Systolic blood pressure 112 mm[Hg] Sonja High BILLET SHEARER Work Phone: [facility] 06-12-2022 09:37-0400 Body height 162.6 cm Arturo Villafana MD Work Phone: [facility] 06-12-2022 09:37-0400 Body weight 92.99 kg Arturo Villafana MD Work Phone: [facility] 06-12-2022 09:37-0400 Diastolic blood pressure 72 mm[Hg] Arturo Villafana MD Work Phone: [facility] 06-12-2022 09:37-0400 Systolic blood pressure 116 mm[Hg] Arturo Villafana MD Work Phone: [facility] 02-08-2022 09:49-0500 Body height 162.56 cm Aurelia Farmer Work Phone: [facility] Work Phone: 02-08-2022 09:49-0500 Body mass index (BMI) [Ratio] 33.72 kg/m2 Aurelia Farmer Work Phone: [facility] Work Phone: 02-08-2022 09:49-0500 Body surface area Derived from formula 1.94 m2 Aurelia Farmer Work Phone: [facility] Work Phone: 02-08-2022 09:49-0500 Body weight 89.11 kg Aurelia Farmer Work Phone: [facility] Work Phone: 02-08-2022 09:49-0500 Diastolic blood pressure 78 mm[Hg] Aurelia Farmer Work Phone: [facility] Work Phone: 02-08-2022 09:49-0500 Heart rate 64 /min Aurelia Farmer Work Phone: [facility] Work Phone: 02-08-2022 09:49-0500 Systolic blood pressure 120 mm[Hg] Aurelia Farmer Work Phone: [facility] Work Phone: 10-31-2021 11:00-0400 Body height 162.56 cm Aurelia Farmer Work Phone: [facility] Work Phone: 10-31-2021 11:00-0400 Body mass index (BMI) [Ratio] 33.3 kg/m2 Aurelia Farmer Work Phone: [facility] Work Phone: 10-31-2021 11:00-0400 Body surface area Derived from formula 1.93 m2 Aurelia Farmer Work Phone: [facility] Work Phone: 10-31-2021 11:00-0400 Body weight 88 kg Aurelia Farmer Work Phone: [facility] Work Phone: 10-31-2021 11:00-0400 Diastolic blood pressure 62 mm[Hg] Aurelia Farmer Work Phone: [facility] Work Phone: 10-31-2021 11:00-0400 Heart rate 64 /min Aurelia Farmer Work Phone: [facility] Work Phone: 10-31-2021 11:00-0400 Systolic blood pressure 110 mm[Hg] Aurelia Farmer Work Phone: [facility] Work Phone: 10-18-2021 14:05-0400 Body height 162.56 cm Aurelia Farmer Work Phone: [address] Work Phone: 10-18-2021 14:05-0400 Body mass index (BMI) [Ratio] 33.49 kg/m2 Aurelia Farmer Work Phone: [address] Work Phone: 10-18-2021 14:05-0400 Body surface area Derived from formula 1.94 m2 Aurelia Farmer Work Phone: [place] [address] [place] Work Phone: 10-18-2021 14:05-0400 Body weight 88.51 kg Aurelia Farmer Work Phone: [address] Work Phone: 10-18-2021 14:05-0400 Diastolic blood pressure 80 mm[Hg] Aurelia Farmer Work Phone: [place] [address] [employer] Work Phone: 10-18-2021 14:05-0400 Systolic blood pressure 104 mm[Hg] Aurelia Farmer Work Phone: [place] [address] [employer] Work Phone: 08-22-2021 09:56-0400 Body height 162.56 cm Aurelia Farmer Work Phone: [place] [address] [employer] Work Phone: 08-22-2021 09:56-0400 Body mass index (BMI) [Ratio] 35.42 kg/m2 Aurelia Farmer Work Phone: [place] [address] [employer] Work Phone: 08-22-2021 09:56-0400 Body surface area Derived from formula 1.98 m2 Aurelia Farmer Work Phone: [place] [address] [employer] Work Phone: 08-22-2021 09:56-0400 Body weight 93.6 kg Aurelia Farmer Work Phone: [place] [address] [employer] Work Phone: 08-22-2021 09:56-0400 Diastolic blood pressure 80 mm[Hg] Aurelia Farmer Work Phone: [place] [address] [employer] Work Phone: 08-22-2021 09:56-0400 Systolic blood pressure 116 mm[Hg] Aurelia Farmer Work Phone: [place] [address] [place] Work Phone: 08-18-2021 09:22-0400 Body height 162.6 cm Loreta Kramer [facility] 08-18-2021 09:22-0400 Body mass index (BMI) [Ratio] 35.7 kg/m2 Loerta Kramer RD [facility] 08-18-2021 09:22-0400 Body weight 94.[address] [facility] 08-11-2021 08:06-0400 Body height 162.56 cm Aurelia Farmer Work Phone: [facility] Work Phone: 08-11-2021 08:06-0400 Body mass index (BMI) [Ratio] 35.77 kg/m2 Aurelia Farmer Work Phone: [facility] Work Phone: 08-11-2021 08:06-0400 Body surface area Derived from formula 1.99 m2 Aurelia Farmer Work Phone: [facility] Work Phone: 08-11-2021 08:06-0400 Body weight 94.52 kg Aurelia Farmer Work Phone: [facility] Work Phone: 08-11-2021 08:06-0400 Diastolic blood pressure 74 mm[Hg] Aurelia Farmer Work Phone: [facility] Work Phone: 08-11-2021 08:06-0400 Heart rate 80 /min Aurelia Farmer Work Phone: [facility] Work Phone: 08-11-2021 08:06-0400 Systolic blood pressure 120 mm[Hg] Aurelia Farmer Work Phone: [facility] Work Phone: 08-09-2021 14:33-0400 Body height 162.56 cm Aurelia Farmer Work Phone: [address] Work Phone: 08-09-2021 14:33-0400 Body mass index (BMI) [Ratio] 36.03 kg/m2 Aureliaophelia Farmer Work Phone: [address] Work Phone: 08-09-2021 14:33-0400 Body surface area Derived from formula 2 m2 Aurelia Farmer Work Phone: [address] Work Phone: 08-09-2021 14:33-0400 Body weight 95.2 kg Aureliaophelia Farmer Work Phone: [address] Work Phone: 08-09-2021 14:33-0400 Diastolic blood pressure 80 mm[Hg] Aureliaophelia Farmer Work Phone: [address] Work Phone: 08-09-2021 14:33-0400 Systolic blood pressure 114 mm[Hg] Aureliaophelia Farmer Work Phone: [address] Work Phone: 07-31-2021 14:27-0400 Body height 162.56 cm [facility]ureliaophelia Farmer [facility] Work Phone: 07-31-2021 14:27-0400 Body mass index (BMI) [Ratio] 36.44 kg/m2 Aureliaophelia Farmer Work Phone: [facility] Work Phone: 07-31-2021 14:27-0400 Body surface area Derived from formula 2.01 m2 Aurelia Fernando Farmer Work Phone: [employer] Work Phone: 07-31-2021 14:27-0400 Body weight 96.3 kg Aurelia Farmer Work Phone: [employer] [facility] Work Phone: 07-31-2021 14:27-0400 Diastolic blood pressure 74 mm[Hg] Aurelia Farmer Work Phone: [facility] Work Phone: 07-31-2021 14:27-0400 Systolic blood pressure 108 mm[Hg] Aurelia Farmer Work Phone: [facility] Work Phone: 07-28-2021 10:03-0400 Body height 162.56 cm Aurelia Farmer Work Phone: [facility] Work Phone: 07-28-2021 10:03-0400 Body mass index (BMI) [Ratio] 36.05 kg/m2 Aurelia Farmer Work Phone: [facility] Work Phone: 07-28-2021 10:03-0400 Body surface area Derived from formula 2 m2 Aurelia Farmer Work Phone: [facility] Work Phone: 07-28-2021 10:03-0400 Body weight 95.26 kg Aurelia Farmer Work Phone: [facility] Work Phone: 07-28-2021 10:03-0400 Diastolic blood pressure 78 mm[Hg] Aurelia Fernando Farmer Work Phone: [facility] Work Phone: 07-28-2021 10:03-0400 Heart rate 68 /min Aurelia O Farmer Work Phone: [facility] Work Phone: 07-28-2021 10:03-0400 Systolic blood pressure 124 mm[Hg] Aurelia Farmer Work Phone: [facility] Work Phone: 06-30-2021 09:07-0400 Body height 162.56 cm Aureliaophelia Farmer Work Phone: [facility] Work Phone: 06-30-2021 09:07-0400 Body mass index (BMI) [Ratio] 36.05 kg/m2 Aurelia Fernando Suman Work Phone: [facility] Work Phone: 06-30-2021 09:07-0400 Body surface area Derived from formula 2 m2 Aurelia Farmer Work Phone: [facility] Work Phone: 06-30-2021 09:07-0400 Body weight 95.26 kg Aurelia Farmer Work Phone: [facility] [employer] [facility] Work Phone: 06-30-2021 09:07-0400 Diastolic blood pressure 80 mm[Hg] Aurelia King Farmer Work Phone: [facility] Work Phone: 06-30-2021 09:07-0400 Heart rate 76 /min Aurelia King Farmer Work Phone: [facility] [employer] [facility] Work Phone: 06-30-2021 09:07-0400 Systolic blood pressure 112 mm[Hg] Aurelia Farmer Work Phone: [facility] Work Phone: Encounters Encounter Date Encounter Type Care Provider Facility Start: 05-03-2023 End: 05-03-2023 ambulatory ARTURO VILLAFANA Facility:[facility] Start: 05-03-2023 End: 05-03-2023 Patient encounter procedure Arturo Villafana MD Work Phone: OB/Gynecology Procedures Date Procedure Procedure Detail Performing Clinician Start: 05-03-2023 URINE OB DIP B/O Arturo Villafana MD Work Phone: Start: 03-08-2023 URINE OB DIP B/O Jody Hernandez MD Work Phone: Start: 02-22-2023 URINE OB DIP B/O Maribell Brennan [facility] [employer]CNM Work Phone: Start: 01-23-2023 History of cholecystectomy History of laparoscopic cholecystectomy Geena Wellington [facility]CNM Work Phone: Start: 01-23-2023 Antibody screen PREMA LLOYD Plan of Treatment Date Care Activity Detail Author Start: 2047 Zoster Vaccines (1 of 2) Zoster Vaccines (1 of 2) [facility] Start: 06-30-2026 Lipid panel Lipid Panel [facility] Start: 09-27-2025 PAP TESTING PAP TESTING [facility] Start: 09-27-2025 Screening for malignant neoplasm of cervix [facility] Start: 02-17-2024 End: 02-17-2024 Patient encounter procedure 02/17/2024 11:00 AM EST Office Visit [facility] [address] [place] [address] Aurelia Farmer MD [address] [facility] [place] [address] [facility] Start: 08-30-2023 End: 08-30-2023 Patient encounter procedure 08/30/2023 1:00 PM EDT Office Visit [facility] [place] [address] [place] [address] Sonja High, BILLET SHEARER [address] [place] [address] [facility] [place] Start: 08-07-2023 End: 11-24-2023 Complete blood count with white cell differential, manual CBC and Differential Lab Routine Polycystic ovarian disease Expected: 08/07/2023, Expires: 11/24/2023 [facility] Payers Date Payer Category Payer Unknown 2021 Medicaid [id number] 2021 Unknown [id number] 1995 Unknown [id number] 2.16. [id number] 1995 Unknown [id number] 2.16. 840.1.624123.3.579.2.356 1997 Unknown [id number] 2.16. 840.1.434874.3.579.2.356 1997 Unknown [id number] 2.16. 840.1.049279.3.579.2.356 1997 Unknown [id number] 2.16. 840.1.154863.3.579.2.356 1997 Unknown [id number] 2.16 840.1.356259.3.579.2.356 1997 Unknown [id number] 2.16. 840.1.464014.3.579.2.356 1997 Unknown [id number] 2.16. 840.1.693499.3.579.2.356 1997 Unknown [id number] 2.16. 840.1.984964.3.579.2.356 1997 Unknown [id number] 2.16. 840.1.712563.3.579.2.356 1997 Unknown [id number] 2.16. 840.1.361540.3.579.2.356 1997 Unknown [id number] 2.16. 840.1.015379.3.579.2.356 1997 Unknown [id number] 2.16. 840.1.082541.3.579.2.903 1997 Unknown [id number] 2.16. 840.1.342264.3.579.2.902 1997 Unknown [id number] 2.16. 840.1.509389.3.579.2.903 1997 Unknown [id number] 2.16. 840.1.676013.3.579.2.903 1997 Unknown [id number] 2.16. 840.1.889059.3.579.2.903 1997 Unknown [id number] 2.16.8 [id number] Unknown [id number] Social History Date Type Detail Facility Start: 07-20-2022 End: 09-24-2022 Never a smoker Never a smoker [facility] Work Phone: Tobacco smoking stat [facility] Tobacco smoking consumption unknown [facility] Start: 1995 Sex Assigned At Not on file [facility] Start: 08-08-2021 End: 02-14-2023 Exposure to SARS-CoV-2 (event) Not sure [facility] Start: 10-03-2021 End: 07-20-2022 Tobacco smoking status WIIS Never smoked tobacco [facility] Start: 10-03-2021 End: 09-24-2022 Tobacco use and exposure Smokeless tobacco non-user [facility] Start: 10-03-2021 End: 11-23-2022 Alcohol intake Lifetime non-drinker (finding) [facility] Start: 06-12-2022 End: 09-24-2022 Tobacco smoking status NHIS Ex-smoker [facility] End: 09-26-2017 History of tobacco use Current smoker [facility] End: 09-26-2017 History of tobacco use Cigarette Smoker [facility] Start: 06-12-2022 End: 05-03-2023 Alcohol intake Ex-drinker (finding) [facility] History of tobacco use Passive smoker [facility] Start: 07-20-2022 End: 09-24-2022 Tobacco use panel [facility] Start: 08-17-2021 Gender identity Identifies as female gender (finding) [facility] Start: 08-17-2021 Sexual orientation Heterosexual (finding) [facility] Start: 09-24-2022 Education 16 [facility] Start: 08-21-2022 [facility] National Score (1-10 0), lower number is lower risk 61 [facility] Medical Equipment Procedure Code Equipment Code Equipment Origin al Text Equipment Identifier Dates by Miscellaneous route 4 (four) times a day E11.65 on insulin . [id number] Start: 09-24-2022 End: 10-24-2022 Use as directed QID. E11.65 on QID insulin regimen . [id number] Start: 09-24-2022 Goals Date Patient Goal Desired Activity /State Personal health goal Clinical Notes 08-15-2021 to 05-03-2023 Arturo Villafana MD - 05/03/2023 11:13 AM ESTPrenatal Quick Notes - Arturo Villafana MD - 05/03/2023 11:09 AM ESTPatient Maggie Rachel MA - 05/02/2023 11:58 AM EST Note Date & Type Note Facility 05-03-2023 Note HNO ID: [id number] Author: ARTURO VILLAFANA MD Service: ? Author Type: Physician Type: Progress Notes Filed: 05/03/2023 12:30 Note Text: NST SUMMARY PROVIDER ASSESSMENT AND INTERPRETATION Maribell Newton is a 27 year old female, , who is at 38w3d with an ANNABELLA of 05/14/2023, by Last Menstrual Period dating method. Indications for NST: Obesity and Polyhydramnios Baseline: 140 Variability: Moderate Accelerations: Present 15 X 15 Decelerations: None Contractions: TOCO: None Interpretation: Category I and Reactive SIGNATURE: Arturo Villafana MD [facility] 05-03-2023 History of Presen t illness Narrative NST SUMMARY PROVIDER ASSESSMENT AND INTERPRETATION Maribell Newton is a 27 year old female, , who is at 38w3d with an ANNABELLA of 05/14/2023, by Last Menstrual Period dating method. Indications for NST: Obesity and Polyhydramnios Baseline: 140 Variability: Moderate Accelerations: Present 15 X 15 Decelerations: None Contractions: TOCO: None Interpretation: Category I and Reactive SIGNATURE: Arturo Villafana MD documented in this encounter [facility] 05-03-2023 Miscellaneous Notes RR- VB No. LOF No. CTXS irreg . Movement: present. Other c/o: No. Medication list reviewed. Physical Exam See Flow Sheet Abd: soft, nontender, gravid Ext: edema: Trace cervix examined, head applied to cervix A/P 38w3d Estimated Date of Delivery: 05/14/23 polyhydramnios- r/b/a to induction reviewed, wants to consider, NST today for this. Reviewed US f/u in 1 week or prn .antepartum anemia- cont. fe, and PNV,r eviewed last cbc maternal obesity, monitor wt gain, EFW 19% Arturo Villafana M.D. Medical Decision Making: Problems: Moderate: 2+ stable chronic illnesses Data: Unique test result(s) reviewed: 2 Unique test(s) ordered: 2 Risk: Moderate: Moderate risk from testing/treatment Medical Decision Making Level: 4 - Moderate documented in this encounter [facility] 05-03-2023 Instructions Maggie Hartman MA - 05/03/2023 10:33 AM EST SEQUENTIAL SCREENINGS The [facility] offers sequential screenings for women who are interested in screenings for chromosomal abnormalities and certain defects during a . The sequential screen combines ultrasound and blood tests to determine the risk of chromosomal abnormalities, including Down's Syndrome (Trisomy 21) and Trisomy 18, as well as open neural tube defects including spina bifida. Ultrasound examination is performed between 11 weeks and 13 weeks gestational age. Blood tests are drawn after the ultrasound and again later in the between 15 and 21 weeks gestational age. Please let your physician know if you are interested in this testing. It will require an appointment with our communications field technician. This is not an ultrasound performed by a physician in our office during a routine visit. SIGNS AND SYMPTOMS OF LABOR 1. Contractions every 10 minutes or more often 2. Clear, pink, or brownish fluid (water) leaking from vagina 3. Feeling that baby is pushing down, pressure 4. Low, dull backache 5. Cramps that feel like a period 6. Cramps with or without diarrhea If you notice any of the above symptoms, contact our office at [phone] and ask to speak with a nurse. After hours, you can call doctors registry at [phone] OR call [facility] at [phone] and ask to have the doctor division toll wire chief paged. If you consider this an emergency, dial 9-- or go to your nearest emergency department. NEED HELP? Are you dealing with a violent or abusive relationship? Are you a victim of rape or sexual assult? Call [facility] ([place]) 24 hour Crisis Hotline: 499.687.3173 or 983-632-2523. MANUAL Your Guide to a Healthy manual is now on-line. Visit [email or web address] to download your free copy documented in this encounter [facility] 05-02-2023 Note Patient Outreach (NE TNAV) MARIBELL NEWTON ([id number]) 1995 F Date Time Provider Department 05/02/23 MAGGIE OJEDA During your visit today, we recorded the following information about you: Maggie Ojeda MA 05/02/2023 11:54 AM Signed POPULATION HEALTH NAVIGATION OUTREACH Action/ attempt: Called and left message to call back to discuss welt rougher. message sent. Patient Identified by Name and : NO Outreach Outcome/Action Unable to reach patient: Left message MyChart message sent Did you use a PCP flex slot to schedule this appointment? N/A Reason for Outreach Payer: Payor: [place] MEDICAID / Plan: [employer] MEDICA[place] / Product Type: Medicaid / Care Gap Reviewed:: N/A Reminder: Reminder note to check Health Maintenance for items below Health Maintenance items due: Hepatitis B Vaccine(1 of 3 - 3-dose series) Never done Covid-19 Vaccine(1) Never done HPV Vaccine(1 - 2-dose series) Never done DTaP,Tdap,Td Vaccine(1 - Tdap) Never done Influenza Vaccine(1) Never done Depression Assessment Never done Navigation Signature: Maggie GonsalesSALONI bone May 02, 2023 9:08 AM Maggie OjedaSALONI 05/02/2023 12:08 PM Signed POPULATION HEALTH NAVIGATION OUTREACH Action/FYI Pt returned call and confirmed welt rougher. Patient Identified by Name and : YES, via phone Outreach Outcome/Action OB/PEDS field updated Navigation Signature: Maggie GonsalesSALONI bone May 02, 2023 11:58 AM Allergies As of Date: 05/02/2023 Noted Allergy Reaction ANIMAL DANDER 11/06/2015 3 - Cough 4 - Hives 9 - Itching 2 - Rash 12 - Shortness of Breath SEASONAL ALLERGIES 06/12/2022 3 - Cough 14 - Other: See Comments Date Reviewed: 04/26/2023 Reviewed by: Christin Louise APRN.BILLET SHEARER - Fully Assessed Reason for Visit: Population Health Navigation Outreach [3910] Cmt: OB/peds Prescriptions as of 05/02/2023 - ferrous sulfate 325 mg (65 mg iron) tablet Take 1 tablet by mouth every other day. - magnesium oxide 400 mg magnesium tab Take 400 mg by mouth once daily. - acetaminophen (TYLENOL ORAL) Take by mouth. - ondansetron (ZOFRAN) 4 mg tablet Take 1 tablet by mouth every 8 hours as needed for nausea/vomiting. - 25/iron fum/folic/dha (-1 ORAL) Problem List As Of Date 05/02/2023 Noted Resolved Obesity, Class II, BMI 35-39.9 [E66.9] 06/12/2022 01/23/2023 in first trimester with history of in*09/24/2022 01/23/2023 Nausea and vomiting during [O21.9] 09/24/2022 01/02/2023 History of anxiety/depression [Z86.59] 09/24/2022 Family history of muscular dystrophy [Z82.0] 09/24/2022 Obesity in [O99.210] 10/31/2022 Depression with anxiety [F41.8] 01/02/2023 Choledocholithiasis [K80.50] 01/22/2023 01/23/2023 37 weeks gestation of [Z3A.37] 01/23/2023 Acute pancreatitis [K85.90] 01/23/2023 History of laparoscopic cholecystectomy [Z90.49]01/23/2023 Abdominal pain affecting [O26.899, R1*01/23/2023 Malnutrition of mild degree (HCC) [E44.1] 01/23/2023 Common bile duct dilatation [K83.8] 01/25/2023 Supervision of high risk in third tri*02/22/2023 Anemia complicating , unspecified trim*04/26/2023 Polyhydramnios in third trimester [O40.3XX0] 05/01/2023 Encounter Status:Closed by MAGGIE OJEDA on 05/02/23 [facility] 05-02-2023 Note HNO ID: [id number] Author: MAGGIE OJEDA MA Service: ? Author Type: Freelance Translator Type: Progress Notes Filed: 05/02/2023 12:08 Note Text: POPULATION HEALTH NAVIGATION OUTREACH Action/FYI Pt returned call and confirmed welt rougher. Patient Identified by Name and : YES, via phone Outreach Outcome/Action OB/PEDS field updated Navigation Signature: Maggie Starr MA May 02, 2023 11:58 AM [facility] 05-02-2023 History of Presen t illness Narrative POPULATION HEALTH NAVIGATION OUTREACH Action/FYI Pt returned call and confirmed welt rougher. Patient Identified by Name and : YES, via phone Outreach Outcome/Action OB/PEDS field updated Navigation Signature: Maggie Starr MA May 02, 2023 11:58 AM POPULATION HEALTH NAVIGATION OUTREACH Action/FYI 1st attempt: Called and left message to call back to discuss welt rougher. MC message sent. Patient Identified by Name and : NO Outreach Outcome/Action Unable to reach patient: Left message MyChart message sent Did you use a PCP flex slot to schedule this appointment? N/A Reason for Outreach [place] Payer: Payor: [place] MEDICAID / Plan: [place] [employer] MEDICAID [place] / Product Type: Medicaid / Care Gap Reviewed:: N/A Reminder: Reminder note to check Health Maintenance for items below Health Maintenance items due: Hepatitis B Vaccine(1 of 3 - 3-dose series) Never done Covid-19 Vaccine(1) Never done HPV Vaccine(1 - 2-dose series) Never done DTaP,Tdap,Td Vaccine(1 - Tdap) Never done Influenza Vaccine(1) Never done Depression Assessment Never done Navigation Signature: Maggie Starr MA May 02, 2023 9:08 AM documented in this encounter [facility] 05-02-2023 Note HNO ID: [id number] Author: MAGGIE OJEDA MA Service: ? Author Type: Freelance Translator Type: Progress Notes Filed: 05/02/2023 11:54 Note Text: POPULATION HEALTH NAVIGATION OUTREACH Action/FYI 1st attempt: Called and left message to call back to discuss welt rougher. message sent. Patient Identified by Name and : NO Outreach Outcome/Action Unable to reach patient: Left message MyChart message sent Did you use a PCP flex slot to schedule this appointment? N/A Reason for Outreach Payer: Pay[place]: [place] / Plan: [place] [employer] [place] / Product Type: Medicaid / Care Gap Reviewed:: N/A Reminder: Reminder note to check Health Maintenance for items below Health Maintenance items due: Hepatitis B Vaccine(1 of 3 - 3-dose series) Never done Covid-19 Vaccine(1) Never done HPV Vaccine(1 - 2-dose series) Never done DTaP,Tdap,Td Vaccine(1 - Tdap) Never done Influenza Vaccine(1) Never done Depression Assessment Never done Navigation Signature: Maggie Starr MA May 02, 2023 9:08 AM [facility] 03-08-2023 Miscellaneous Notes DM-Pt doing well. Denies vaginal Bleeding, Leaking fluid, or regular Contractions. Pt reports good movement Physical Exam: Gen: female in no apparent distress Abd: soft, Gravid. Non tender to palpation. See flow sheet A/P: @ 30.3 wks 1) declines Tdap and RSV 2) continue PO iron 3) RTO 2 weeks 4) Kick counts reviewed Jody Chambers MD documented in this encounter [facility] 03-08-2023 Instructions Valentino Quezada Nanci - 03/08/2023 3:45 PM EST SEQUENTIAL SCREENINGS The [facility] offers sequential screenings for women who are interested in screenings for chromosomal abnormalities and certain defects during a . The sequential screen combines ultrasound and blood tests to determine the risk of chromosomal abnormalities, including Down's Syndrome (Trisomy 21) and Trisomy 18, as well as open neural tube defects including spina bifida. Ultrasound examination is performed between 11 weeks and 13 weeks gestational age. Blood tests are drawn after the ultrasound and again later in the between 15 and 21 weeks gestational age. Please let your physician know if you are interested in this testing. It will require an appointment with our communications field technician. This is not an ultrasound performed by a physician in our office during a routine visit. SIGNS AND SYMPTOMS OF LABOR 1. Contractions every 10 minutes or more often 2. Clear, pink, or brownish fluid (water) leaking from vagina 3. Feeling that baby is pushing down, pressure 4. Low, dull backache 5. Cramps that feel like a period 6. Cramps with or without diarrhea If you notice any of the above symptoms, contact our office at [phone] and ask to speak with a nurse. After hours, you can call doctors registry at [phone] OR call [facility] at [phone] and ask to have the doctor division toll wire chief paged. If you consider this an emergency, dial 9-1-1 or go to your nearest emergency department. NEED HELP? Are you dealing with a violent or abusive relationship? Are you a victim of rape or sexual assult? Call [facility] ([place]) 24 hour Crisis Hotline: 227.295.9414 or 162-564-4726. MANUAL Your Guide to a Healthy manual is now on-line. Visit [email or web address] nancyGuide to download your free copy documented in this encounter [facility] 02-25-2023 Miscellaneous Notes 3rd risk assessment form submitted 02/25/23 Claudia Ellison RN documented in this encounter [facility] 02-22-2023 Miscellaneous Notes JOI-S: Maribell Newton is a 27 year old female who presents at 28w3d with ANNABELLA:05/14/2023, by Last Menstrual Period for a routine visit. Good FM. Denies headache, visual changes, chest pain, shortness of breath, vaginal bleeding, leakage of fluid, or dysuria. Feeling well, no complaints. O: See flow sheet Gen: No apparent distress Abd: Gravid, nontender ASSESSMENT/PLAN: 1. Supervision of high risk in second trimester 2. 28 weeks gestation of - 1 hour GCT, CBC, and RPR today. -Anemia, continue PO iron, will follow up after iron studies completed - A positive - TDAP Declines at this time. - Reviewed RSV vaccine, does not plan to get this at this time. - LARC form reviewed and signed. Patient declines - Depression screen negative - Opioid screen negative - plan form discussed and given to patient. Reviewed Childbirth education. Planning . - PTL precautions and kick counts reviewed - RTO- 2 weeks or sooner if needed Maribell Amin APRN.CNM documented in this encounter [facility] 02-22-2023 Instructions Shabbir Hoffmann Cma - 02/22/2023 2:59 PM EST SEQUENTIAL SCREENINGS The [facility] offers sequential screenings for women who are interested in screenings for chromosomal abnormalities and certain defects during a . The sequential screen combines ultrasound and blood tests to determine the risk of chromosomal abnormalities, including Down's Syndrome (Trisomy 21) and Trisomy 18, as well as open neural tube defects including spina bifida. Ultrasound examination is performed between 11 weeks and 13 weeks gestational age. Blood tests are drawn after the ultrasound and again later in the between 15 and 21 weeks gestational age. Please let your physician know if you are interested in this testing. It will require an appointment with our communications field technician. This is not an ultrasound performed by a physician in our office during a routine visit. SIGNS AND SYMPTOMS OF LABOR 1. Contractions every 10 minutes or more often 2. Clear, pink, or brownish fluid (water) leaking from vagina 3. Feeling that baby is pushing down, pressure 4. Low, dull backache 5. Cramps that feel like a period 6. Cramps with or without diarrhea If you notice any of the above symptoms, contact our office at [phone] and ask to speak with a nurse. After hours, you can call doctors registry at [phone] OR call [facility] at [phone] and ask to have the doctor division toll wire chief paged. If you consider this an emergency, dial 9--1 or go to your nearest emergency department. NEED HELP? Are you dealing with a violent or abusive relationship? Are you a victim of rape or sexual assult? Call [facility] ([place]) 24 hour Crisis Hotline: 123.582.5311 or 024-937-3290. MANUAL Your Guide to a Healthy manual is now on-line. Visit [email or web address] [email or web address] to download your free copy documented in this encounter [facility] 02-16-2023 Note HNO ID: [id number] Author: Luis Daniel Andrade MD Service: ? Author Type: Physician Type: Progress Notes Filed: 02/16/2023 10:12 AM Note Text: Patient would like to have her surgery done in [place] will contact the surgeons at [facility] for this to happen. No charge for today's visit [facility] 02-14-2023 History of Presen t illness Narrative Here for check up; currently 27 weeks ; seeing OB in [place]; had gallbladder removed 2 weeks in [place] Subjective Maribell Newton is a 27 y.o. female who presents for Annual Exam. HPI 27 weeks with first baby, girl, sees OB in [place]. Had gallbladder removed two weeks ago [facility] then sent to [facility], obtaining all records. Doing well. On protonix, states they told her to finish out her current sript. History of anxiety, doing well without meds History of PCOS Denies concerns othewrwise. Declines influenza vaccine. Review of Systems All other systems reviewed and are negative. . Objective Visit Vitals BP 118/64 (BP Location: Left arm, Patient Position: Sitting) Pulse 76 Physical Exam Vitals and nursing note reviewed. Constitutional: General: She is not in acute distress. Appearance: Normal appearance. She is not toxic-appearing. HENT: Head: Normocephalic and atraumatic. Cardiovascular: Rate and Rhythm: Normal rate and regular rhythm. Heart sounds: No murmur heard. Pulmonary: Effort: Pulmonary effort is normal. Breath sounds: Normal breath sounds. Abdominal: Comments: gravid Musculoskeletal: Cervical back: Neck supple. No rigidity. Comments: Normal gait Skin: General: Skin is warm and dry. Neurological: General: No focal deficit present. Mental Status: She is alert and oriented to person, place, and time. Psychiatric: Mood and Affect: Mood normal. Behavior: Behavior normal. Assessment/Plan Problem List Items Addressed This Visit None Visit Diagnoses Wellness examination - Primary Aurelia Farmer MD documented in this encounter [facility] Work Phone: 01-24-2023 Note HNO ID: [id number] Author: Shima Garcia DO Service: Obstetrics Author Type: Resident Type: Progress Notes Filed: 01/24/2023 6:23 PM Note Text: Maternal- Medicine PM Progress Note S: Maribell is a 27 year old patient at 24w2d is who is now hospital day 2 s/p lap renay at outside facility. MRCP has revealed no common bile duct stone or dilation, however she does have evidence of mild post-op pancreatitis. Per plan of care established by daytime team and MFM, patient has attempted a regular diet for dinner and is now taking only tylenol prn for pain. She reports having turkey sandwich, soup, and a small salad for dinner. She denies any nausea or vomiting. She is having very mild epigastric pain at this time, which she is states is tolerable. She reports no severe abdominal pain and states her post-op soreness in her abdomen has been better today. She denies contractions, vaginal bleeding, and leakage of fluid. She endorses regular movement. O: BP 99/54 Pulse 66 Temp 36.1 ?C (97 ?F) (Temporal) Resp 16 Ht 162.6 cm (5' 4 ) Wt 83 kg (182 lb 14.4 oz) LMP 08/07/2022 (Exact Date) SpO2 97% BMI 31.39 kg/m? General: Comfortable, NAD Heart: RR Lungs: Normal respiratory effort Abdomen: Soft, mild tenderness throughout appropriate for post-op state. No rebound or guarding. 5 laparoscopic incisions with dressing and Tegaderm overlying, all are C/D/I Extremities: no edema A/P: Maribell is a 27 year old patient at 24w2d is who is now hospital day 2 s/p lap renay at outside facility. MRCP has revealed no common bile duct stone or dilation, however she does have evidence of mild post-op pancreatitis. As patient is tolerating regular diet and has good pain control, will discharge home at this time. Post-operative expectations and precautions have been reviewed with her and her family, in addition to precautions. She is scheduled for follow up with both her primary apigee developer and general surgeon in 2 weeks. Shima Garcia DO Obstetrics and Gynecology PGY-3 [facility] 01-24-2023 Note HNO ID: [id number] Author: Christin Calhoun MD Service: Obstetrics Author Type: Resident Type: Progress Notes Filed: 01/24/2023 5:11 PM Note Text: Patient tolerated liquid diet and declined tylenol. Planning to eat regular diet for dinner and see how she tolerates and then discharge to home if able to tolerate and pain is well controlled. Discussed plan with Dr. Schneider who agrees. Chirstin Calhoun MD Pager # [phone] [employer]ELDER Resident PGY-2 01/24/2023 5:10 PM [facility] 01-24-2023 Note HNO ID: [id number] Author: Rose Amato RN Service: Nursing Author Type: Registered Nurse Type: Nursing Progress Note Filed: 01/24/2023 12:54 PM Note Text: Pt tolerating full liquid diet. Dr. Calhoun notified. Pt up ambulating in cintron. [facility] 01-24-2023 Note HNO ID: [id number] Author: Christin Calhoun MD Service: Obstetrics Author Type: Resident Type: Progress Notes Filed: 01/24/2023 11:18 AM Note Text: Labs as follows: WBC 13->14->8.4 Hgb 10.5->9.8->9.3 Plt 214->213->168 AST/ALT 63/86->56/82->37/61 CBili 0.6->0.5->0.3 Lipase 599 Amylase 427 Discussed with GI who said pancreatitis could be related to recent procedure or spontaneously. Most likely related to recent procedure. As there is no stone noted on imaging, and LFT's continued to trend down, pancreatitis should be treated with pain medication, IVF, nausea control. Will monitor for symptomatic improvement and advance to liquid diet to see if she tolerates. Will consider discharge when patient improves symptomatically and is able to tolerate diet. Anticipate either later this evening or tomorrow am. Will discontinue oxycodone and continue with Tylenol. Discussed with GI, Gen Surg, Dr. Jennie RN, and patient Christin Calhoun MD Pager # [phone] PLASTIC WELDER Resident PGY-2 01/24/2023 10:56 AM [facility] 01-24-2023 Note HNO ID: [id number] Author: Helena Menchaca DO Service: Obstetrics Author Type: Resident Type: Progress Notes Filed: 01/24/2023 9:18 AM Note Text: MRCP results returned. Edema within the pancreatic parenchyma and immediate surrounding soft tissues raising concern for acute pancreatitis. Correlate clinically. Patient with abdominal pain on morning rounds. Will order stat lipase, amylase, hepatic function panel, CBC to assess further for pancreatitis. D/w Dr. Schneider. SIGNATURE: Helena Menchaca DO PATIENT NAME: Maribell Newton DATE: 01/24/2023 TIME: 9:18 AM PAGER/CONTACT #: [phone] [facility] 01-24-2023 Note HNO ID: [id number] Author: Cristy Marley APRN.CNP Service: Gastroenterology Author Type: Nurse Practitioner Type: Plan of Care Filed: 01/24/2023 10:59 AM Note Text: GI following for elevated LFT's, concern for choledocholithiasis. Medical chart reviewed and discussed with GI attending. MRCP ordered yesterday demonstrating no bile duct dilation, no common bile duct stone. LFT's overall continue to improve; T bili 0.6, ALK 143, ALT 61, AST 37. MRCP does demonstrate some edema within the pancreatic parenchyma and immediate surrounding concerning for possible pancreatitis. PRN pain control and management per primary. No acute inpatient GI interventions indicated at this time. Rest of care per primary and remaining consultants. GI will sign off at this time. GI attending: Dr. Solano [facility] 01-24-2023 Note HNO ID: [id number] Author: Christin Calhoun MD Service: Obstetrics Author Type: Resident Type: Progress Notes Filed: 01/24/2023 8:40 AM Note Text: Attestation signed by Arias Schneider DO at 01/24/2023 5:03 PM MFM Attending Note I saw and evaluated the patient. I agree with the resident's findings and plan of care as documented below. No acute events overnight. MRCP negative w/ exception of some findings concerning for pancreatitis. Amylase and lipase elevated c/w pancreatitis. Leukocytosis improved. Findings reviewed with GI and GenSurg who stated lab elevations possibly secondary to recent surgery and recommend continued pain control and ADAT. Patient tolerating some PO at this time. Advance to solids for dinner. Patient expressed desire for D/C home tonight. Will reassess pain and ability to tolerate food this evening and consider D/C. Recommend f/u with gensurg as recommended and with her primary OB in one week. Arias Schneider DO, MPH 01/24/2023 4:58 PM OBSTETRICS ANTEPARTUM PROGRESS NOTE SERVICE DATE: 01/24/2023 SERVICE TIME: 6:37 AM Assessment AND Plan : 27 year old EGA:24w2d admitted for s/p renay with common bile duct dilation. Plan of care discussed with: Provider, RN, Patient. Active Hospital Problems Diagnosis Date Noted Common bile duct dilatation 01/23/2023 Overview Note: - s/p cholecystectomy on at outside hospital - Transferred to [facility] for concern for dilated common bile duct and possible need for ERCP - Pain regimen: tylenol, oxycodone prn - Zofran - Regular diet ordered but patient doing clears - MRCP yesterday, results pending - Mgmt per GI, appreciate recs 24 weeks gestation of 01/23/2023 Overview Note: - 30 minutes of monitoring daily - Transverse lie - BMZ held, NICU consult held History of laparoscopic cholecystectomy 01/23/2023 Abdominal pain affecting 01/23/2023 Malnutrition of mild degree (HCC) 01/23/2023 Obesity in 10/31/2022 Overview Note: - BMI 31 - SCDs in bed History of anxiety/depression 09/24/2022 Overview Note: - mood stable, no meds Family history of muscular dystrophy 09/24/2022 Overview Note: - Father of the baby's brother born prematurely with hole in the heart and had surgical correction. Patient second cousin with muscular dystrophy - Anatomy scan wnl - No Carrier screening done Subjective : No current vaginal bleeding, No current leaking of fluid, No contractions, Good movement, No shortness of breath or chest pain, and No calf tenderness Reports tolerated clears yesterday including chicken broth and icee. Reports no flatus yet since surgery but has not been paying attention, some pain with waking this am in epigastric region which was sharp, now improved with prn oxy. Believes it may be hunger pains. Otherwise patient is ambulating and voiding spontaneous. Objective : LAST VITALS: Pulse BP Resp O2 Sat Temp Pain 69 100/53 16 97 % 36.1 ?C (97 ?F) 6 PHYSICAL EXAM: General: WD, WN, NAD, comfortable, sitting up in chair Heart: RR Lungs: nonlabored breathing on RA Abdomen: soft, nontender MONITORING/ASSESSMENT: testing reassuring - see additional documentation LABS Diagnostic tests reviewed for today's visit: Most recent labs and imaging results. SIGNATURE: Christin Calhuon MD PATIENT NAME: Maribell Newton DATE: January 24, 2023 TIME: 6:37 AM [facility] 01-23-2023 Note HNO ID: [id number] Author: Shima Garcia DO Service: Obstetrics Author Type: Resident Type: Progress Notes Filed: 01/23/2023 6:05 PM Note Text: Radio Discussion: The indications for the exam (MRCP) have been discussed with the ordering provider. The ordering provider and patient are aware of radiation risks related to the study, including to the fetus (which in this case are very minimal as MRI's do not emit radiation). A dose estimate and risk assessment will be placed in the EMR following the study by the medical physics group. Shima Garcia DO Obstetrics and Gynecology PGY-3 [facility] 01-23-2023 Note HNO ID: [id number] Author: Jenni Soares RN Service: Nursing Author Type: Registered Nurse Type: Nursing Progress Note Filed: 01/23/2023 12:04 PM Note Text: MRI questionnaire filled out by patient and faxed to MRI [facility] 01-23-2023 Miscellaneous Notes No Geena . Just wanted to make sure you had no further advice Patient called in. She is 23w3d Patient was seen in [facility] ED yesterday for epigastric pain. Diagnosed with cholelithiasis. She was told to call in office today. She states that since leaving ED was able to sleep a few hours. Now pain is the same as when she went to ED. Mid abdomen and back pain area. Pain ranges from 5-8 and is mostly constant, can go go away up to an hour. Trying to keep food down but is a struggle. Staying away from dairy and trying to eat a bland diet. Able to keep some fluids down. Baby is active. I got patient an appointment with Dr Andrade Saturday-first opening with Dr Andrade. I advised her to go to ER if pain increases, Unable to keep food or fluids down in a 24 hour period, she does not feel baby move or PRN problems. Patient is agreeable.Call only if further advice. ED records on your desk documented in this encounter [facility] 01-23-2023 Note HNO ID: [id number] Author: Patito Coy MD Service: Obstetrics Author Type: Resident Type: Progress Notes Filed: 01/23/2023 6:30 AM Note Text: SAFE-T Protocol with C-SSRS - Recent Step 1: Identify Risk Factors C-SSRS Suicidal Ideation Severity Month Wish to be Have you wished you were or wished you could go to sleep and not wake up? No Current suicidal thoughts Have you actually had any thoughts of killing yourself? No Suicidal thoughts w/ Method (w/no specific Plan or Intent or act) Have you been thinking about how you might do this? No Suicidal Intent without Specific Plan Have you had these thoughts and had some intention of acting on them? No Intent with Plan Have you started to work out or worked out the details of how to kill yourself? Do you intend to carry out this plan? No C-SSRS Suicidal Behavior: Have you ever done anything, started to do anything, or prepared to do anything to end your life?? Examples: Collected pills, obtained a gun, gave away valuables, wrote a will or suicide note, took out pills but didn?t swallow any, held a gun but changed your mind or it was grabbed from your hand, went to the roof but didn?t jump; or actually took pills, tried to shoot yourself, cut yourself, tried to hang yourself, etc. If ?YES? Was it within the past 3 months? Lifetime Yes Past 3 Months No Current and Past Psychiatric Dx: Mood Disorder Presenting Symptoms: None Family History: None Precipitants/Stressors: None Change in treatment: None Access to lethal methods: None Step 2: Identify Protective Factors (Protective factors may not counteract significant acute suicide risk factors) Internal: Ability to cope with stress External: Supportive social network of family or friends Step 3: Specific questioning about Thoughts, Plans, and Suicidal Intent - (see Step 1 for Ideation Severity and Behavior) If semi-structured interview is preferred to complete this section, clinicians may opt to complete C-SSRS Lifetime/Recent for comprehensive behavior/lethality assessment. C-SSRS Suicidal Ideation Intensity (with respect to the most severe ideation 1-5 identified above) Month Frequency How many times have you had these thoughts? (1) Less than once a week (2) Once a week (3) 2-5 times in week (4) Daily or almost daily (5) Many times each day Less than once a week (1) Duration When you have the thoughts how long do they last? (1) Fleeting - few seconds or minutes (2) Less than 1 hour/some of the time (3) 1-4 hours/a lot of time (4) 4-8 hours/most of day (5) More than 8 hours/persistent or continuous Fleeting - few seconds or minutes (1) Controllability Could/can you stop thinking about killing yourself or wanting to if you want to? (1) Easily able to control thoughts (2) Can control thoughts with little difficulty (3) Can control thoughts with some difficulty (4) Can control thoughts with a lot of difficulty (5) Unable to control thoughts (0) Does not attempt to control thoughts Easily able to control thoughts (1) Deterrents Are there things - anyone or anything (e.g., family, worship, pain of ) - that stopped you from wanting to or acting on thoughts of suicide? (1) Deterrents definitely stopped you from attempting suicide (2) Deterrents probably stopped you (3) Uncertain that deterrents stopped you (4) Deterrents most likely did not stop you (5) Deterrents definitely did not stop you (0) Does not apply Deterrents definitely stopped you from attempting suicide (1) Reasons for Ideation What sort of reasons did you have for thinking about wanting to or killing yourself? Was it to end the pain or stop the way you were feeling (in other words you couldn?t go on living with this pain or how you were feeling) or was it to get attention, revenge or a reaction from others? Or both? (1) Completely to get attention, revenge or a reaction from others (2) Mostly to get attention, revenge or a reaction from others living with the pain or how you were feeling) (3) Equally to get attention, revenge or a reaction from others (4) Mostly to end or stop the pain (you couldn?t go on (5) Completely to end or stop the pain (you couldn?t go on and to end/stop the pain living with the pain or how you were feeling) (0) Does not apply Does not apply (0) Total Score 4 Step 4: Guidelines to Determine Level of Risk and Develop Interventions to LOWER Risk Level ?The estimation of suicide risk, at the culmination of the suicide assessment, is the quintessential clinical judgment, since no study has identified one specific risk factor or set of risk factors as specifically predictive of suicide or other suicidal behavior.? From The [employer] Practice Guidelines for the Assessment and Treatment of Patients with Suicidal Behaviors, page 24. RISK STRATIFICATION TRIAGE (more content not included)... [facility] documented as of this encounter (statuses as of 01/23/2023) [facility]10-24-2023 History of Past illness Narrative* Problem Noted Date Diagnosed Date Resolved Date Choledocholithiasis 01/22/2023 01/24/20 23 in first trimester with history of infertility, antepartum 09/24/2022 01/23/2023 Overview: 3Patient and have been trying to get for the past 3 years. She states she has insulin resistance /PCOS. She has been seeing an packaging line operator at [facility] in [place]. She is currently taking metformin prescribed by packaging line operator. I have advised her to call her packaging line operator to let him know that she is .TKRN Nausea and vomiting during 09/24/2022 01/02/2023 Overview: /atient is complaining of nausea and occasional vomiting in . Dietary considerations discussed . Vitamin B6 recommended. Advised patient to call/come in if she is unable to keep any food or fluids down in a 24-hour period.TKRN Obesity, Class II, BMI 35-39.9 06/12/2022 01/23/2023 Depression with anxiety 06/2022 documented as of this encounter (statuses as of 02/22/2023) [facility] History of Past illness Narrative* Problem Noted Date Diagnosed Date Resolved Date Choledocholithiasis 01/22/2023 01/24/20 in first trimester with history of infertility, antepartum 09/24/2022 01/23/2023 Overview: 09/24/2022atient and have been trying to get for the past 3 years. She states she has insulin resistance /PCOS. She has been seeing an packaging line operator at [facility] in [place]. She is currently taking metformin prescribed by packaging line operator. I have advised her to call her packaging line operator to let him know that she is .TKRN Nausea and vomiting during 09/24/2022 01/02/2023 Overview: /atient is complaining of nausea and occasional vomiting in . Dietary considerations discussed . Vitamin B6 recommended. Advised patient to call/come in if she is unable to keep any food or fluids down in a 24-hour period.TKRN Obesity, Class II, BMI 35-39.9 06/12/2022 01/23/2023 Depression with anxiety 06/2022 documented as of this encounter (statuses as of 02/25/2023) [facility] History of Past illness Narrative* Problem Noted Date Diagnosed Date Resolved Date Choledocholithiasis 01/22/2023 01/24/20 in first trimester with history of infertility, antepartum 09/24/2022 01/23/2023 Overview: 09/24/2022atient and have been trying to get for the past 3 years. She states she has insulin resistance /PCOS. She has been seeing an packaging line operator at [facility] in [place]. She is currently taking metformin prescribed by packaging line operator. I have advised her to call her packaging line operator to let him know that she is .TKRN Nausea and vomiting during 09/24/2022 01/02/2023 Overview: /atient is complaining of nausea and occasional vomiting in . Dietary considerations discussed . Vitamin B6 recommended. Advised patient to call/come in if she is unable to keep any food or fluids down in a 24-hour period.TKRN Obesity, Class II, BMI 35-39.9 06/12/2022 01/23/2023 Depression with anxiety 0 06/2022 documented as of this encounter (statuses as of 03/09/2023) [facility] History of Past illness Narrative* Problem Noted Date Diagnosed Date Resolved Date Choledocholithiasis 01/22/2023 01/24/20 23 in first trimester with history of infertility, antepartum 09/24/2022 01/23/2023 Overview: 09/24/2022atient and have been trying to get for the past 3 years. She states she has insulin resistance /PCOS. She has been seeing an packaging line operator at [facility] in [place]. She is currently taking metformin prescribed by packaging line operator. I have advised her to call her packaging line operator to let him know that she is .TKRN Nausea and vomiting during 09/24/2022 01/02/2023 Overview: /atient is complaining of nausea and occasional vomiting in . Dietary considerations discussed . Vitamin B6 recommended. Advised patient to call/come in if she is unable to keep any food or fluids down in a 24-hour period.TKRN Obesity, Class II, BMI 35-39.9 06/12/2022 01/23/2023 Depression with anxiety 100 06/2022 documented as of this encounter (statuses as of 05/02/2023) [facility] History of Past illness Narrative* Problem Noted Date Diagnosed Date Resolved Date Choledocholithiasis 01/22/2023 01/24/20 in first trimester with history of infertility, antepartum 09/24/2022 01/23/2023 Overview: 09/24/2022atient and have been trying to get for the past 3 years. She states she has insulin resistance /PCOS. She has been seeing an packaging line operator at [facility] in [place]. She is currently taking metformin prescribed by packaging line operator. I have advised her to call her packaging line operator to let him know that she is .TKRN Nausea and vomiting during 09/24/2022 01/02/2023 Overview: 306/atient is complaining of nausea and occasional vomiting in . Dietary considerations discussed . Vitamin B6 recommended. Advised patient to call/come in if she is unable to keep any food or fluids down in a 24-hour period.TKRN Obesity, Class II, BMI 35-39.9 06/12/2022 01/23/2023 Depression with anxiety 06/2022 documented as of this encounter (statuses as of 05/03/2023) [facility]10-05-2023 Miscellaneous Notes* Telephone Encounter - Claudia Ellison RN - 01/03/2023 1:25 PM EDT 2nd risk assessment form submitted 01/03/23 Claudia Ellison RN [facility] Miscellaneous Notes* Quick Notes - Christin Louise APRN.JOSE - 01/02/2023 1:42 PM EDT Maribell Newton is a 27 year old female who presents at 21w1d gestation for a routine visit. Feelingfetal movement. Denies headache, visual changes, chest pain, shortness of breath, vaginal bleeding,leakage of fluid, or dysuria. Feeling well, no complaints. O: See flow sheet Gen: No apparent distress Abd: Gravid, nontender, S=D ASSESSMENT/PLAN: 1. 21 weeks gestation of - ICD9: V22.2, ICD10: Z3A.21 - URINE OB DIP B/O - Discussed appropriate hydration and weight gain expectations - Anatomy ultrasound completed and WNL - RTO in 4 weeks or sooner as needed. Christin Louise APRN.BILLET SHEARER Attending Note: Duval findings confirmed. Patient examined. Discussed with the nurse practitioner and the patient. Plan as outlined. Jody Chambers MD [facility] Instructions* Patient Instructions* Nanci Avelar Ma - 01/02/2023 1:19 PM EDT SEQUENTIAL SCREENINGS The [facility] offers sequential screenings for women who are interested in screenings for chromosomal abnormalities and certain defects during a . The sequential screen combinesultrasound and blood tests to determine the risk of chromosomal abnormalities, including Down's Syndrome (Trisomy 21) and Trisomy 18, as well as open neural tube defects including spina bifida. Ultrasound examination is performed between 11 weeks and 13 weeks gestational age. Blood tests are drawn after the ultrasound and again later in the between 15 and 21 weeks gestational age. Please let your physician know if you are interested in this testing. It will require an appointment withour communications field technician. This is not an ultrasound performed by a physician in our office during a routine visit. SIGNS AND SYMPTOMS OF LABOR 1. Contractions every 10 minutes or more often 2. Clear, pink, or brownish fluid (water) leaking from vagina 3. Feeling that baby is pushing down, pressure 4. Low, dull backache 5. Cramps that feel like a period 6. Cramps with or without diarrhea If you notice any of the above symptoms, contact our office at [phone] and ask to speak with anurse. After hours, you can call [facility] at [phone] OR call [facility] at [phone] ask to have the doctor division toll wire chief paged. If you consider this an emergency, dial 8-7-3 or go to your nearest emergency department. NEED HELP? Are you dealing with a violent or abusive relationship? Are you a victim of rape or sexual assult? Call [facility] 24 hour Crisis Hotline: 203.404.8160 or 965-599-6323. MANUAL Your Guide to a Healthy manual is now on-line. Visit [email or web address] to download your free copy documented in this encounterOhiohealth [facility] Center08-30-2023 Instructions* Patient Instructions* Shabbir Hoffmann Cma - 11/28/2022 4:19 PM EDT SEQUENTIAL SCREENINGS The [facility] offers sequential screenings for women who are interested in screenings for chromosomal abnormalities and certain defects during a . The sequential screen combinesultrasound and blood tests to determine the risk of chromosomal abnormalities, including Down's Syndrome (Trisomy 21) and Trisomy 18, as well as open neural tube defects including spina bifida. Ultrasound examination is performed between 11 weeks and 13 weeks gestational age. Blood tests are drawn after the ultrasound and again later in the between 15 and 21 weeks gestational age. Please let your physician know if you are interested in this testing. It will require an appointment withour communications field technician. This is not an ultrasound performed by a physician in our office during a routine visit. SIGNS AND SYMPTOMS OF LABOR 1. Contractions every 10 minutes or more often 2. Clear, pink, or brownish fluid (water) leaking from vagina 3. Feeling that baby is pushing down, pressure 4. Low, dull backache 5. Cramps that feel like a period 6. Cramps with or without diarrhea If you notice any of the above symptoms, contact our office at [phone] and ask to speak with anurse. After hours, you can call doctors registry at [phone] OR call [facility] at [phone] ask to have the doctor division toll wire chief paged. If you consider this an emergency, dial 8-5-7 or go to your nearest emergency department. NEED HELP? Are you dealing with a violent or abusive relationship? Are you a victim of rape or sexual assult? Call [facility] ([place]) 24 hour Crisis Hotline: 313.740.1154 or 407-710-6821. MANUAL Your Guide to a Healthy manual is now on-line. Visit [email or web address] to download your free copy documented in this encounterOhiohealth Southeastern Medical Center08-30-2023 Miscellaneous Notes* Quick Notes - Geena Wellington APRN.CNM - 11/28/2022 4:17 PM EDT S: Maribell Newton is a 27 year old female who presents at 16.1 weeks gestation for a routine visit.No movement to date. Denies headache, visual changes, chest pain, shortness of breath, vaginal bleeding, leakage of fluid, or dysuria. Feeling well, no complaints. O: See flow sheet Gen: No apparent distress Abd: Gravid, nontender ASSESSMENT/PLAN: 1. 16 weeks gestation of - ICD9: V22.2, ICD10: Z3A.16 (primary diagnosis) 2. Obesity in - ICD9: 649.10, ICD10: O99.210 3. Encounter for supervision of normal first in second trimester - ICD9: V22.0, ICD10: Z34.02 - URINE OB DIP B/O - ALPHA FETOPRO MATERNAL- today P: 1) PTL precautions reviewed and when to call 2) RTO 4 weeks for anatomy US and МАРИНА Wellington APRN.CNM documented in this encounterOhiohealth Southeastern Medical Center08-25-2023 History of Present illness Narrative* Sonja High CNP - 11/23/2022 9:14 AM EDT Images from the original note were not included. Patient ID: Maribell Newton is a 27 y.o. female Subjective: Maribell Newton presents for follow up of Polycystic Ovarian Syndrome. Current symptoms/problems include negative positive for - change in hair pattern, malaise/lethargy, temperature intolerance, and irregular menstrual cycles, difficulty getting . negative for - galactorrhea, mood swings, palpitations, or polydypsia/polyuria Aforementioned symptoms have been stable. Symptoms have been present for a few years. Patient is currently taking: Review of Systems: Review of Systems Constitutional: Positive for fatigue. Negative for unexpected weight change (weight down 40 lbs over last year.). HENT: Negative for trouble swallowing. Extra hair on face, shave every other day. Eyes: Negative for visual disturbance. Respiratory: Negative for cough and shortness of breath. Cardiovascular: Negative for chest pain and leg swelling. Gastrointestinal: Positive for nausea ( morning sickness .). Negative for abdominal pain, constipation, diarrhea and vomiting. Endocrine: Negative for polydipsia, polyphagia and polyuria. Genitourinary: Positive for menstrual problem (Previously irregular cycles. Currently .). Negative for frequency and urgency. Musculoskeletal: Positive for back pain (low back and pelvic floor). Negative for arthralgias and joint swelling. Skin: Negative for wound. Neurological: Negative for numbness and headaches. Psychiatric/Behavioral: Negative for agitation and sleep disturbance. The patient is not nervous/anxious. Increased stress and anxiety Past Medical History: Diagnosis Date Diabetes mellitus (HCC) PCOS (polycystic ovarian syndrome) Past Surgical History: Procedure Laterality Date TEAR DUCT SURGERY Bilateral 2000 VARICOSE VEIN SURGERY Bilateral Family History Problem Relation Age of Onset Obesity Mother Thyroid disease Mother Diabetes Father Thyroid disease Maternal Grandmother Diabetes Paternal Grandmother Diabetes Paternal Grandfather Social History Tobacco Use Smoking status: Never Passive exposure: Current Smokeless tobacco: Never Vaping Use Vaping Use: Never used Substance Use Topics Alcohol use: Never Drug use: Never The following portions of the patient's history were reviewed and updated as appropriate: allergies, current medications, past family history, past medical history, past social history, past surgicalhistory and problem list. Objective: Physical Exam: BP 106/71 Pulse 79 Wt 80.7 kg (178 lb) BMI 30.55 kg/m Wt Readings from Last 3 Encounters: 11/23/22 80.7 kg (178 lb) 11/19/22 79.4 kg (174 lb 15.7 oz) 07/20/22 90.3 kg (199 lb) Physical Exam Constitutional: Appearance: She is well-developed. HENT: Head: Normocephalic and atraumatic. Eyes: Conjunctiva/sclera: Conjunctivae normal. Pupils: Pupils are equal, round, and reactive to light. Neck: Thyroid: No thyromegaly. Cardiovascular: Rate and Rhythm: Normal rate and regular rhythm. Heart sounds: Normal heart sounds. Pulmonary: Effort: Pulmonary effort is normal. Breath sounds: Normal breath sounds. Musculoskeletal: General: Normal range of motion. Cervical back: Normal range of motion and neck supple. Skin: General: Skin is warm and dry. Neurological: Mental Status: She is alert and oriented to person, place, and time. Psychiatric: Behavior: Behavior normal. Thought Content: Thought content normal. Judgment: Judgment normal. Lab Review Date: 11/14/22 *labs reviewed 11/23/22 Hgb A1c: 4.6% Glucose: Creat: 0.44; eGFR: 138 AST: 10; ALT: 17 K: 4.0 TSH: 2.73 ; FreeT4: 0.9 TPO: 0.8 DHEA-SO4: 283 Androstenedione: 279 SHB Testosterone: 105 06/12/22 Glucose: 102 TPO: <3.0 TSH: 3.360 ; TotalT4: 6.2; T4 uptake: 1.07 TPO: <3.0 Total Testosterone: 92 Free Testosterone: 2.86 DHEA-S: 347.7 Prolactin: 8.8 FSH: 7.3 LH: 14.0 Estradiol; 34.7 Estrone; 49.0 Insulin: 24.8 08/09/21 Testosterone: <60 17-OH progesterone: 150 Hgb A1c: 5.4% 06/30/21 TSH: 3.00 Glucose 86 Assessment: Dx: 1. Polycystic ovarian disease Comprehensive Metabolic Panel T4, Free TSH Hemoglobin A1c Testosterone, Total Prolactin Follicle Stimulating Hormone Luteinizing Hormone CBC and Differential Maribell Newton presents for follow-up of Polycystic Ovarian Syndrome. Patient reports irregular periods, occuring every 30-60 days. Patient previously managed with inositol (supplement thought to aid in insulin resistance) and metformin. Patient is currently 15w3d with Estimated Date of Delivery: 05/14/23. Patient's labs reviewed from 06/21 revealing: high normal insulin levels, normal glucose. Patient's testosterone and DHEA-S elevated mildly. TSH also noted to be high normal in the past, currently normal, TPO normal in the past. Patient's mother has hypothyroidism. On no thyroid medications. Plan: 1. Rx changes: Monitor BG Monitor thyroid function closely now and closer if becomes . Monitor for GDM. 2. Education: Patient also reminded of the importance of a diet low in fat, processed foods and sugars. Encouraged patient to focus on fruits, vegetables, lean meats and whole grains. 3. Follow up: 9 months Orders Placed This Encounter Procedures Comprehensive Metabolic Panel T4, Free TSH Hemoglobin A1c Testosterone, Total Prolactin Follicle Stimulating Hormone Luteinizing Hormone CBC and Differential Electronically Signed by: Sonja High CNP 11/23/22 10:53 AM documented in this [id number] Miscellaneous Notes* Quick Notes - Jody Pineda MD - 10/31/2022 9:44 AM EDT DM-Pt doing well. Denies vaginal Bleeding, Leaking fluid, or regular Cramping. Had NT today. Physical Exam: Gen: female in no apparent distress Abd: soft, Gravid. Non tender to palpation. See flow sheet A/P: @ 12.1 weeks 1) Nt today and PNOB blood work 2) RTO 4 wks Jody Chambers MD documented in this encounterOhiohealth Southeastern [facility] Center08-02-2023 Instructions* Patient Instructions* Nanci Avelar Ma - 10/31/2022 8:50 AM EDT SEQUENTIAL SCREENINGS The [facility] offers sequential screenings for women who are interested in screenings for chromosomal abnormalities and certain defects during a . The sequential screen combinesultrasound and blood tests to determine the risk of chromosomal abnormalities, including Down's Syndrome (Trisomy 21) and Trisomy 18, as well as open neural tube defects including spina bifida. Ultrasound examination is performed between 11 weeks and 13 weeks gestational age. Blood tests are drawn after the ultrasound and again later in the between 15 and 21 weeks gestational age. Please let your physician know if you are interested in this testing. It will require an appointment withour communications field technician. This is not an ultrasound performed by a physician in our office during a routine visit. SIGNS AND SYMPTOMS OF LABOR 1. Contractions every 10 minutes or more often 2. Clear, pink, or brownish fluid (water) leaking from vagina 3. Feeling that baby is pushing down, pressure 4. Low, dull backache 5. Cramps that feel like a period 6. Cramps with or without diarrhea If you notice any of the above symptoms, contact our office at [phone] and ask to speak with anurse. After hours, you can call doctors registry at [phone] OR call [facility] at [phone] ask to have the doctor division toll wire chief paged. If you consider this an emergency, dial 4-7-9 or go to your nearest emergency department. NEED HELP? Are you dealing with a violent or abusive relationship? Are you a victim of rape or sexual assult? Call [facility] ([place]) 24 hour Crisis Hotline: 649.229.6081 or 829-964-2015. MANUAL Your Guide to a Healthy manual is now on-line. Visit [email or web address] to download your free copy documented in this encounterOhiohealth Southeastern Medical Center07-23-2023 Miscellaneous Notes* Telephone Encounter - Amaya Blount RN - 10/21/2022 12:50 PM EDT Patient calling regarding Light brown discharge at 10 weeks and 5 days with light cramping. Conferenced to [facility] Special Makeup Fx Artist Instructor, Tameka, to speak with provider division toll wire chief for Dr. Arturo Villafana at phone number. If you have any questions, you can call Nurse sales operations associate back at anytime. Patient verbalized understanding. documented in this encounterOhiohealth Southeastern Medical Center07-14-2023 Miscellaneous Notes* Quick Notes - Arturo Villafana MD - 10/12/2022 11:17 AM EDT RR- VB No. LOF No. CTXS No. Movement: absent. Other c/o: nausea improved, rare emesis now Medication list reviewed. Physical Exam See Flow Sheet Abd: soft, nontender Ext: edema: no A/P 9w3d Estimated Date of Delivery: 05/14/23 cont. vit b6 and unisom prn w/ zofran for breakthrough f/u in 2-3 weeks or prn. Arturo Villafana M.D. documented in this encounterOhiohealth Southeastern Medical Center06-29-2023 NoteHNO ID: [id number] Author: Arturo Villafana MD Service: ? Author Type: Physician Type: Progress Notes Filed: 09/27/2022 10:52 AM Note Text: OB point of care ultrasound was performed. See imaging tab for details. Bette Loyd Ma INITIAL OB ASSESSMENT OB Provider: Arturo Villafana MD HPI: Maribell is a 27 year old White here to establish Obstetrical Care. Patient's last menstrual period was 08/07/2022 (exact date). from OB Dating Form. Cycles regular was planned Complaints: nasuea and vomting, hasn't felt well for 3 days, able to keep down fluids OB History T0 L0 SAB0 IAB0 Ectopic0 Multiple0 Live Births0 Patient's Risk Screening for delivery: MEDICAL/PSYCHOSOCIAL HISTORY: History of hemorrhage or bleeding concerns: No Thyroid Disease: No History of chronic hypertension: No History of pre-existing diabetes: No No results found for: ABORHD No weight on file for this encounter. History of abnormal pap: yes Prior treatment for cervical dysplasia: none. History of STDs: None Tobacco use: No Caffeine use: occas Drug use: No Alcohol use: No Multivitamin with Folic acid: when she can Druze or heritage: No Would refuse blood transfusion if medically necessary: No Are you currently employed? Yes, Occupation: [employer] Do you have any history of depression, anxiety, PTSD, eating disorders or other mood problems: depression in high school, mood stable Do you have any safety concerns or history of traumatic events that you would like to discuss with your provider: No OB Depression and Anxiety Screening- This Encounter (since 09/26/2022) None GENETIC SCREENING: Partner present: Yes Patient verbalized knowledge of partner family health history: NA Do you or your partner have any personal or family history of defects not previously discussed: No Do you have history of a complicated by anomaly, genetic condition, or demise: No Marital Status: Partner: Name: Rene Age: 30 Occupation: construction/logging Gender: Male History of STDs: None PAST MEDICAL HISTORY Diagnosis Date Abnormal glandular Papanicolaou smear of cervix Anemia Depression with anxiety Fatty liver Fracture collarbone Infertility, female Insulin resistance PCOS (polycystic ovarian syndrome) PAST SURGICAL HISTORY Procedure Laterality Date PKG SCLEROTHERAPY/VERICOSE VEINS, MULTIPLE VEINS 2021 TEAR DUCT SYSTEM SURGERY 1998 VAGINOSCOPY Current Outpatient Medications Medication Sig Dispense Refill metFORMIN (GLUCOPHAGE) 1,000 mg tablet Take 1,000 mg by mouth daily with breakfast. 25/iron fum/folic/dha (-1 ORAL) L. acidophilus/Bifid. animalis 32 billion cell cap Take by mouth. dicksondha root extract 500 mg cap (Patient not taking: Reported on 09/24/2022) 5-hydroxytryptophan, 5-HTP, (5-HTP ORAL) Take by mouth. (Patient not taking: Reported on 09/24/2022) medroxyPROGESTERone (PROVERA) 10 mg tablet Take 1 tablet by mouth once daily. (Patient not taking: Reported on 09/24/2022) 10 tablet 0 No current facility-administered medications for this visit. Allergies As of Date: 09/27/2022 Allergen Noted Reaction ANIMAL DANDER 11/06/2015 Cough, Hives, Itching, Rash, and Shortness of Breath SEASONAL ALLERGIES 06/12/2022 Cough and Other: See Comments Fully Assessed 09/24/2022 Does patient have penicillin allergy: No REVIEW OF SYSTEMS: GENERAL: Negative for: Fever or Chills HEENT: Negative for: Headache, Impaired Vision, Ringing in Ears, Nosebleeds NECK: Negative for: Swelling, Pain, Stiffness RESPIRATORY: Negative for: Cough, Shortness of breath, Wheezing GASTROINTESTINAL: Negative for: Heartburn, Constipation, Diarrhea, Blood in stool, Vomiting MUSCULOSKELETAL: Negative for: Muscle or joint pain, stiffness, Joint swelling NEUROLOGIC/PSYCHIATRIC: Negative for: Weakness, Paralysis, Numbness, Tingling, Tremor, Anxiety, Depression, Memory loss SKIN: Negative for: Rash, Itching GENITOURINARY: Negative for: vaginal itching, vaginal discharge, hematuria or dysuria PHYSICAL EXAM: LMP 08/07/2022 GENERAL: pleasant in no apparent distress DERMATOLOGY: Normal, without lesions, non-icteric, and non-hirsute NECK: Supple, full range of motion, no adenopathy, and thyroid normal CHEST: Normal inspiratory effort BREAST: soft, non-tender, symmetric, no dominant mass, normal nipple-areolar complex, no lymphadenopathy, and no nipple discharge ABDOMEN: soft, non-tender, and no masses NEURO: alert and oriented x3,exam grossly non-focal PELVIS: External genitalia normal without lesions. Perineal body intact. No vaginal or cervical lesions. Cervix closed. Uterus 7 week size. No adnexal masses or tenderness. Clinical Pelvimetry: Pelvimetry clinically assessed as adequate Limited OB ultrasound exam: single intrauterine and (more content not included)...[facility]06-29-2023 History of Present illness Narrative* Arturo Villafana MD - 09/27/2022 10:20 AM EDT OB point of care ultrasound was performed. See imaging tab for details. Bette Loyd Ma INITIAL OB ASSESSMENT OB Provider: Arturo Villafana MD HPI: Maribell is a 27 year old White here to establish Obstetrical Care. Patient's last menstrualperiod was 08/07/2022 (exact date). from OB Dating Form. Cycles regular was planned Complaints: nasuea and vomting, hasn't felt well for 3 days, able to keep down fluids OB History T0 L0 SAB0 IAB0 Ectopic0 Multiple0 Live Births0 Patient's Risk Screening for delivery: MEDICAL/PSYCHOSOCIAL HISTORY: History of hemorrhage or bleeding concerns: No Thyroid Disease: No History of chronic hypertension: No History of pre-existing diabetes: No No results found for: ABORHD No weight on file for this encounter. History of abnormal pap: yes Prior treatment for cervical dysplasia: none. History of STDs: None Tobacco use: No Caffeine use: occas Drug use: No Alcohol use: No Multivitamin with Folic acid: when she can Druze or heritage: No Would refuse blood transfusion if medically necessary: No Are you currently employed? Yes, Occupation: [employer] Do you have any history of depression, anxiety, PTSD, eating disorders or other mood problems: depression in high school, mood stable Do you have any safety concerns or history of traumatic events that you would like to discuss with your provider: No OB Depression and Anxiety Screening- This Encounter (since 09/26/2022) None GENETIC SCREENING: Partner present: Yes Patient verbalized knowledge of partner family health history: NA Do you or your partner have any personal or family history of defects not previously discussed: No Do you have history of a complicated by anomaly, genetic condition, or demise: No Marital Status: Partner: Name: Rene Age: 30 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 25/iron fum/folic/dha (-1 ORAL) L. acidophilus/Bifid. animalis 32 billion cell cap Take by mouth. dicksondha root extract 500 mg cap (Patient not taking: Reported on 09/24/2022) 5-hydroxytryptophan, 5-HTP, (5-HTP ORAL) Take by mouth. (Patient not taking: Reported on 09/24/2022) medroxyPROGESTERone (PROVERA) 10 mg tablet Take 1 tablet by mouth once daily. (Patient not taking: Reported on 09/24/2022) 10 tablet 0 No current facility-administered medications for this visit. Allergies As of Date: 09/27/2022 Allergen Noted Reaction ANIMAL DANDER 11/06/2015 Cough, Hives, Itching, Rash, and Shortness of Breath SEASONAL ALLERGIES 06/12/2022 Cough and Other: See Comments Fully Assessed 09/24/2022 Does patient have penicillin allergy: No REVIEW OF SYSTEMS: GENERAL: Negative for: Fever or Chills HEENT: Negative for: Headache, Impaired Vision, Ringing in Ears, Nosebleeds NECK: Negative for: Swelling, Pain, Stiffness RESPIRATORY: Negative for: Cough, Shortness of breath, Wheezing GASTROINTESTINAL: Negative for: Heartburn, Constipation, Diarrhea, Blood in stool, Vomiting MUSCULOSKELETAL: Negative for: Muscle or joint pain, stiffness, Joint swelling NEUROLOGIC/PSYCHIATRIC: Negative for: Weakness, Paralysis, Numbness, Tingling, Tremor, Anxiety, Depression, Memory loss SKIN: Negative for: Rash, Itching GENITOURINARY: Negative for: vaginal itching, vaginal discharge, hematuria or dysuria PHYSICAL EXAM: LMP 08/07/2022 GENERAL: pleasant in no apparent distress DERMATOLOGY: Normal, without lesions, non-icteric, and non-hirsute NECK: Supple, full range of motion, no adenopathy, and thyroid normal CHEST: Normal inspiratory effort BREAST: soft, non-tender, symmetric, no dominant mass, normal nipple-areolar complex, no lymphadenopathy, and no nipple discharge ABDOMEN: soft, non-tender, and no masses NEURO: alert and oriented x3,exam grossly non-focal PELVIS: External genitalia normal without lesions. Perineal body intact. No vaginal or cervical lesions. Cervix closed. Uterus 7 week size. No adnexal masses or tenderness. Clinical Pelvimetry: Pelvimetry clinically assessed as adequate Limited OB ultrasound exam: single intrauterine and positive cardiac activity OB Risk Screening: Completed, no positive findings documented. ASSESSMENT: 27 year old at 7w2d wks gestational age PLAN: 1) Patient oriented to practice. Patient given new OB orientation folder. Discussed nutrition, folic acid supplementation, dietary guidelines, exercise, smoking, alcohol, caffeine, and drug use. Discussed gestational weight gain guidelines. Discussed routine OB labs including STD/HIV. Discussed how to access Your guide to a health and the Telemetry Registered Nurse. Discussed aneuploidy and carrier screening. Regarding aneuploidy screening, nuchal translucency/first trimester early anatomy ultrasound and NIPT were discussed. Regarding carrier screening, the myriad screen was discussed. The risks/benefits and limitations of NIPT/aneuploidy screening were reviewed including the potential for false negative and false positive results. We discussed the availability of professional-society guided carrier screening and reviewed the conditions screened and limitations of screening. The availability of genetic counseling was reviewed. Information on aneuploidy/carrier screening was provided. The patient chooses: Aneuploidy screening: chooses to proceed with First trimester early anatomy ultrasound (12-13w6d) and NIPT (10 weeks) and Carrier screening: Declines- [id number] accepts Patient offered option of Virtual Visits. Patient unsure. May consider in future. 2) ASA candidate 3) screen for DM w/ [id number] was on metformin, feels like it is contributing to nausea so d/c it for now n/v of , not controlled w/ vit b6 and unisom, trial diclegis, set up for infusion if needed. Zofran for breakthrough nausea Follow up in 4 weeks or sooner prn. family h/o muscular dystrophy in 2nd cousin only Arturo Villafana MD documented in this encounterOhio[facility]06-29-2023 Instructions* Patient Instructions* Bette Loyd Ma - 09/27/2022 10:07 AM EDT Please select the following link to access the [facility] Your Guide to a Healthy . [email or web address] documented in this encounterOhiohealth Southeastern [facility]06-26-2023 History of Past illness Narrative* Problem Noted Date Diagnosed Date Resolved Date Nausea and vomiting during 09/24/2022 01/02/2023 Overview: atient is complaining of nausea and occasional vomiting in . Dietary considerations discussed . Vitamin B6 recommended. Advised patient to call/come in if she is unable to keep any food or fluids down in a 24-hour period.TKRN Depression with anxiety 06/2022 documented as of this encounter (statuses as of 01/04/2023) [facility] History of Past illness Narrative* Problem Noted Date Diagnosed Date Resolved Date Nausea and vomiting during 09/24/2022 01/02/2023 Overview: atient is complaining of nausea and occasional vomiting in . Dietary considerations discussed . Vitamin B6 recommended. Advised patient to call/come in if she is unable to keep any food or fluids down in a 24-hour period.TKRN Depression with anxiety 06/2022 documented as of this encounter (statuses as of 01/05/2023) [facility] Miscellaneous Notes* Quick Notes - Court Bradford RN - 09/24/2022 9:42 AM EDT DISTANCE HEALTH VISIT This Team Access Model visit is a phone encounter. It required patient-provider interaction for themedical decision making as documented below. Patient and have been trying to get for the past 3 years. She states she has insulin resistance /PCOS. She has been seeing an packaging line operator at [facility] in [place]. She is currently taking metformin prescribed by packaging line operator. I have advised her to call her packaging line operator to let him know that she is .Patient is complaining of nausea and occasional vomiting in . Dietary considerations discussed . Vitamin B6 recommended. Advised patient to call/come in if she is unable to keep any food or fluids down in a 24-hour period. Pt has a history of anxiety/depression diagnosed as a teenager. She states she has never taken any medications to treat it. States she has seen a therapist in the past as a teenager. I did recommend patient consider a therapist at this time because she is worried about depression because many of her family members have experienced that. Discussed increased risks of depression during and and importance of reporting the development or worsening of symptoms should they occur. Patient states she last had suicidal thoughts in 2015. Father of the baby's brother born prematurely with hole in the heart and had surgical correction. Patient second cousin with muscular dystrophy. Patient considering aneuploidy screening and genetic carrier screening testing. Contact information for [facility] and [facility] labs given to patient to check on insurance coverage.Court Bradford RN documented in this encounterOhiohealth Southeastern Medical Center04-21-2023 History of Present illness Narrative* Sonja High CNP - 07/20/2022 10:10 AM EDT Images from the original note were not included. Patient ID: Maribell Newton is a 27 y.o. female Subjective: Maribell Newton presents for evaluation of Polycystic Ovarian Syndrome Current symptoms/problems include negative positive for - change in hair pattern, malaise/lethargy, temperature intolerance, and irregular menstrual cycles, difficulty getting . negative for - galactorrhea, mood swings, palpitations, or polydypsia/polyuria Aforementioned symptoms have been stable. Symptoms have been present for a few years. Patient is currently taking: Review of Systems: Review of Systems Constitutional: Positive for fatigue. Negative for unexpected weight change (weight down 20-25 lbs over last year.). HENT: Negative for trouble swallowing. Extra hair on face, shave every other day. Eyes: Negative for visual disturbance. Respiratory: Negative for cough and shortness of breath. Cardiovascular: Negative for chest pain and leg swelling. Gastrointestinal: Negative for abdominal pain, constipation, diarrhea, nausea and vomiting. Endocrine: Negative for polydipsia, polyphagia and polyuria. Genitourinary: Positive for menstrual problem (irregular cycles.). Negative for frequency and urgency. Musculoskeletal: Positive for back pain (low back and pelvic floor). Negative for arthralgias and joint swelling. Skin: Negative for wound. Neurological: Negative for numbness and headaches. Psychiatric/Behavioral: Negative for agitation and sleep disturbance. The patient is not nervous/anxious. Increased stress and anxiety Past Medical History: Diagnosis Date PCOS (polycystic ovarian syndrome) Past Surgical History: Procedure Laterality Date TEAR DUCT SURGERY Bilateral 2000 VARICOSE VEIN SURGERY Bilateral Family History Problem Relation Age of Onset Obesity Mother Thyroid disease Mother Diabetes Father Thyroid disease Maternal Grandmother Diabetes Paternal Grandmother Diabetes Paternal Grandfather Social History Tobacco Use Smoking status: Never Passive exposure: Current Smokeless tobacco: Never Vaping Use Vaping status: Never Used Substance Use Topics Alcohol use: Never Drug use: Never The following portions of the patient's history were reviewed and updated as appropriate: allergies, current medications, past family history, past medical history, past social history, past surgicalhistory and problem list. Objective: Physical Exam: BP 112/75 Pulse (!) 58 Wt 90.3 kg (199 lb) BMI 34.16 kg/m Wt Readings from Last 3 Encounters: 07/20/22 90.3 kg (199 lb) 08/18/21 94.3 kg (208 lb) Physical Exam Constitutional: Appearance: She is well-developed. HENT: Head: Normocephalic and atraumatic. Eyes: Conjunctiva/sclera: Conjunctivae normal. Pupils: Pupils are equal, round, and reactive to light. Neck: Thyroid: No thyromegaly. Cardiovascular: Rate and Rhythm: Normal rate and regular rhythm. Heart sounds: Normal heart sounds. Pulmonary: Effort: Pulmonary effort is normal. Breath sounds: Normal breath sounds. Musculoskeletal: General: Normal range of motion. Cervical back: Normal range of motion and neck supple. Skin: General: Skin is warm and dry. Neurological: Mental Status: She is alert and oriented to person, place, and time. Psychiatric: Behavior: Behavior normal. Thought Content: Thought content normal. Judgment: Judgment normal. Lab Review Date: 06/12/22 Glucose: 102 TPO: <3.0 TSH: 3.360 ; TotalT4: 6.2; T4 uptake: 1.07 TPO: <3.0 Total Testosterone: 92 Free Testosterone: 2.86 DHEA-S: 347.7 Prolactin: 8.8 FSH: 7.3 LH: 14.0 Estradiol; 34.7 Estrone; 49.0 Insulin: 24.8 08/09/21 Testosterone: <60 17-OH progesterone: 150 Hgb A1c: 5.4% 06/30/21 TSH: 3.00 Glucose 86 Assessment: Dx: 1. PCOS (polycystic ovarian syndrome) 2. Polycystic ovarian disease Ambulatory referral to Endocrinology Maribell Newton presents for follow-up of Polycystic Ovarian Syndrome. Patient reports irregular periods, occuring every 30-60 days. Patient is currently managed with inositol (supplement thought toaid in insulin resistance). Patient's labs reviewed from 06/21 revealing: high normal insulin levels, normal glucose. Patient's testosterone and DHEA-S elevated mildly. Discussed with patient the possibility of treating testosterone with spironolactone or possibly OCP, however patient's primary goalis to become . TSH also noted to be high normal, TPO normal in the past. Patient's mother has hypothyroidism. On no thyroid medications. Plan: 1. Rx changes: Start metformin Start metformin XR 500 mg daily for one week then increase to BID. Monitor thyroid function closely now and closer if becomes . 2. Education: Patient also reminded of the importance of a diet low in fat, processed foods and sugars. Encouraged patient to focus on fruits, vegetables, lean meats and whole grains. Set realistic goals. Many people expect to lose much more weight than is likely. A weight loss of 5% to 10% of your body weight may be enough to improve your health. 3. Follow up: 6 months Orders Placed This Encounter Procedures Comprehensive Metabolic Panel T4, Free TSH Hemoglobin A1c Thyroid peroxidase antibody (TPO) Testosterone, Total DHEA-Sulfate Androstenedione Calculated Free Testosterone Electronically Signed by: Sonja High CNP 07/23/22 10:53 AM documented in this [id number] NoteHNO ID: [id number] Author: Arturo Villafana MD Service: ? Author Type: Physician Type: Progress Notes Filed: 07/03/2022 1:06 PM Note Text: VIRTUAL VISIT PROGRESS NOTE This is a virtual visit using Zen Planner video visit. It required patient-provider interaction for the medical decision making as documented below. I have communicated my name and active licensure. The patient's identity and physical location were verified at the time of this visit. Either the patient or their legal manufacturers representative has been informed of the risks and benefits of -- and alternatives to -- treatment through a remote evaluation and consents to proceed with the evaluation remotely. Maribell Newton is a 27 year old female seen for f/u PCOS. Started provera and then did start a menses. Just ended 3 days ago. Lasted 6 days, was heavy but not more than average for her. HISTORY REVIEWED (electronic chart updated): PAST MEDICAL HISTORY Diagnosis Date Abnormal glandular Papanicolaou smear of cervix Fatty liver Insulin resistance PCOS (polycystic ovarian syndrome) PAST SURGICAL HISTORY Procedure Laterality Date PKG SCLEROTHERAPY/VERICOSE VEINS, MULTIPLE VEINS 2021 TEAR DUCT SYSTEM SURGERY 1998 VAGINOSCOPY FAMILY HISTORY Problem Relation Age of Onset Thyroid Mother Obesity Mother Diabetes Father Social History Tobacco Use Smoking status: Former Types: Cigarettes Smokeless tobacco: Never Vaping Use Vaping Use: Never used Substance Use Topics Alcohol use: Not Currently Drug use: Never Current Outpatient Medications Medication Sig 25/iron fum/folic/dha (-1 ORAL) L. acidophilus/Bifid. animalis 32 billion cell cap Take by mouth. johnnie root extract 500 mg cap 5-hydroxytryptophan, 5-HTP, (5-HTP ORAL) Take by mouth. medroxyPROGESTERone (PROVERA) 10 mg tablet Take 1 tablet by mouth once daily. No current facility-administered medications for this visit. ALLERGIES Allergen Reactions Animal Dander Cough, Hives, Itching, Rash, Shortness of Breath Seasonal Allergies Cough, Other: See Comments REVIEW OF SYSTEMS: GENERAL: feeling well without fatigue, no recent change in weight PHYSICAL EXAMINATION: VIDEO EXAM: (if completed, performed via video enabled technology) No exam performed ASSESSMENT: PCOS, elevated testosterone PLAN: d/w her would not recommend meds for hypertestosterone if trying to conceive. Meets w/ endocrine and then if desires ovulation induction, consider femara. She agrees w/ plan. Recommend folate in anticipation of . Also offered preconceptual carrier screening, declines this for now. Will contact office after endocrine appt. Cont provera q 4-6 weeks to induce withdrawal bleed if doesn't have spont. menses There are no Patient Instructions on file for this visit. I spent a total of 23 minutes on the date of the service which included preparing to see the patient, [id number] patient care, completing clinical documentation, and counseling and educating the patient/family/caregiver Arturo Villafana [facility]04-04-2023 History of Present illness Narrative* Arturo Villafana MD - 07/03/2022 10:32 AM EDT VIRTUAL VISIT PROGRESS NOTE This is a virtual visit using Zen Planner video visit. It required patient-provider interaction for themedical decision making as documented below. I have communicated my name and active licensure. The patient's identity and physical location wereverified at the time of this visit. Either the patient or their legal manufacturers representative has been informed of the risks and benefits of -- and alternatives to -- treatment through a remote evaluation andconsents to proceed with the evaluation remotely. Maribell Newton is a 27 year old female seen for f/u PCOS. Started provera and then did start a menses. Just ended 3 days ago. Lasted 6 days, was heavy but not more than average for her. HISTORY REVIEWED (electronic chart updated): PAST MEDICAL HISTORY Diagnosis Date Abnormal glandular Papanicolaou smear of cervix Fatty liver Insulin resistance PCOS (polycystic ovarian syndrome) PAST SURGICAL HISTORY Procedure Laterality Date PKG SCLEROTHERAPY/VERICOSE VEINS, MULTIPLE VEINS 2021 TEAR DUCT SYSTEM SURGERY 1998 VAGINOSCOPY FAMILY HISTORY Problem Relation Age of Onset Thyroid Mother Obesity Mother Diabetes Father Social History Tobacco Use Smoking status: Former Types: Cigarettes Smokeless tobacco: Never Vaping Use Vaping Use: Never used Substance Use Topics Alcohol use: Not Currently Drug use: Never Current Outpatient Medications Medication Sig 25/iron fum/folic/dha (-1 ORAL) L. acidophilus/Bifid. animalis 32 billion cell cap Take by mouth. ashwagandha root extract 500 mg cap 5-hydroxytryptophan, 5-HTP, (5-HTP ORAL) Take by mouth. medroxyPROGESTERone (PROVERA) 10 mg tablet Take 1 tablet by mouth once daily. No current facility-administered medications for this visit. ALLERGIES Allergen Reactions Animal Dander Cough, Hives, Itching, Rash, Shortness of Breath Seasonal Allergies Cough, Other: See Comments REVIEW OF SYSTEMS: GENERAL: feeling well without fatigue, no recent change in weight PHYSICAL EXAMINATION: VIDEO EXAM: (if completed, performed via video enabled technology) No exam performed ASSESSMENT: PCOS, elevated testosterone PLAN: d/w her would not recommend meds for hypertestosterone if trying to conceive. Meets w/ endocrine and then if desires ovulation induction, consider femara. She agrees w/ plan. Recommend folate in anticipation of . Also offered preconceptual carrier screening, declines this for now. Will contact office after endocrine appt. Cont provera q 4-6 weeks to induce withdrawal bleed if doesn't have spont. menses There are no Patient Instructions on file for this visit. I spent a total of 23 minutes on the date of the service which included preparing to see the patient, [id number] patient care, completing clinical documentation, and counseling and educating the patient/family/caregiver Arturo Villafana MD documented in this encounterOhiohealth [facility]03-23-2023 Miscellaneous Notes* Telephone Encounter - Arturo Villafana MD - 06/21/2022 10:33 AM EDT noted. thanks. Arturo Villafana MD * Telephone Encounter - Saida Tucker RN - 06/21/2022 9:45 AM EDT FYI patient does not want to start clomid or femara. Saida Tucker RN * Telephone Encounter - Saida Tucker RN - 06/21/2022 8:48 AM EDT Attempted to call patient. She is already scheduled for follow up on 07/03/22 with RICHELLE. Terrell message sent regarding clomid/femara question. Saida Tucker RN * Telephone Encounter - Saida Tucker RN - 06/21/2022 8:48 AM EDT ----- Message from Arturo Villafana MD sent at 06/20/2022 5:24 PM EDT ----- Schedule for f/u labs w/ me or another provider and see if she wants to start clomid or femara. Canbe virtual. Arturo Villafana MD documented in this encounterOhiohealth [facility]03-14-2023 NoteHNO ID: [id number] Author: Arturo Villafana MD Service: ? Author Type: Physician Type: Progress Notes Filed: 06/12/2022 10:43 AM Note Text: Maribell Newton is a 27 year old female who presents for problem visit to establish for PCOS. Dx last year about this time. Had irreg menses. Got menses May last year after watching diet and exercising more. Cycles were about every 45 days at that time. Has skipped up to 5 months in a row. Always had irregular menses when she was younger. No menses since Jan 2022. Working w/ a naturopathic provider about gut health. Was down to 192 lb and up to 225 lb and now has stabilized about 205 lb. Has not been preventing for past year and has not conceived and had semen analysis that was normal per her report. 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: Yes; Male Contraception: No contraception data on record PAST MEDICAL HISTORY Diagnosis Date Abnormal glandular Papanicolaou smear of cervix Fatty liver Insulin resistance PCOS (polycystic ovarian syndrome) PAST SURGICAL HISTORY Procedure Laterality Date PKG SCLEROTHERAPY/VERICOSE VEINS, MULTIPLE VEINS 2021 TEAR DUCT SYSTEM SURGERY 1998 VAGINOSCOPY FAMILY HISTORY Problem Relation Age of Onset Thyroid Mother Obesity Mother Diabetes Father Social History Tobacco Use Smoking status: Former Types: Cigarettes Smokeless tobacco: Never Vaping Use Vaping Use: Never used Substance Use Topics Alcohol use: Not Currently Drug use: Never Current Outpatient Medications Medication Sig 25/iron fum/folic/dha (-1 ORAL) L. acidophilus/Bifid. animalis 32 billion cell cap Take by mouth. hopea root extract 500 mg cap 5-hydroxytryptophan, 5-HTP, (5-HTP ORAL) Take by mouth. No current facility-administered medications for this visit. Allergies As of Date: 06/12/2022 Allergen Noted Reaction ANIMAL DANDER 11/06/2015 Cough, Hives, Itching, Rash, and Shortness of Breath SEASONAL ALLERGIES 06/12/2022 Cough and Other: See Comments Fully Assessed 06/12/2022 REVIEW OF SYSTEMS Breast: No breast lumps, nipple d/c, overlying skin changes, redness or skin retraction. Expanded ROS: N/A Endocrine- no polyuria, polydipsia, some hair loss but seems to be coming back, acne stable, some hair growth on face Allergies and current medication updated:Yes EXAM: BP 116/72 Ht 5' 4 (1.63m) Wt 205 lb (93.0kg) LMP 02/25/2022 BMI 35.17 kg/(m2). GENERAL: pleasant, female in no apparent distress HEENT: Normocephalic, atraumatic, mucus membranes moist, no lesions, and acne vulgaris noted NECK: Supple, full range of motion, no adenopathy, and thyroid normal ASSESSMENT AND PLAN: PCOS, secondary amenorrhea labs ordered eating lower carb diet and exercising regularly. Offered obesity medicine consult, declines. May benefit from trial metformin provera challenge, d/w her bleeding expectations, if heavy consider lysteda for that cycle d/w her option for ovulation induction w/ clomid or femara. R/B/A to this reviewed and instructions given. She will discuss w/ and we will meet after labs and make a plan. encouraged PNV> Medical Decision Making: Problems: Moderate: 1+ chronic illnesses with change Data: Unique test(s) ordered: 3+ Risk: Moderate: Moderate risk from testing/treatment Medical Decision Making Level: 4 - Moderate Arturo Villafana [facility]03-14-2023 Instructions* Patient Instructions* Arturo Villafana MD - 06/12/2022 10:05 AM EDT Start the femara on day 3 of your cycle. Cycle day one is the first day of menstrual flow (usually more than spotting, when you would wear more than a pantyliner for protection). Take the femara for 5 days. If you are prescribed more than one pill of femara you make take them all at the same time. Time intercourse every other day cycle day 9-16. Use an ovulation prediction kit starting at about day 10 if you want. Record date/dates that you get color changes if you get color changes. Get a day 21 progesterone level drawn (if day 21 is a Saturday it is ok to get it a day early or day late). Call with onset of your period or on day 32 w/ the results of a home test if you haven't started your period yet. Risks of ovulation induction include but are not limited to : multiple gestatations (twins or rarely triplets), ovarian hyperstimulation syndrome that results in large ovarian cysts and sometimes pain and electrolyte abnormalities that need treated by hospitalization, increased pain or bleeding with menstruation, moodiness, nausea, breast tenderness or allergic reactions to the medication. documented in this encounterOhiohealth [facility]heastern [facility] Center03-14-2023 History of Present illness Narrative* Arturo Villafana MD - 06/12/2022 9:25 AM EDT Maribell Newton is a 27 year old female who presents for problem visit to establish for PCOS. Dx last year about this time. Had irreg menses. Got menses May last year after watching diet and exercising more. Cycles were about every 45 days at that time. Has skipped up to 5 months in a row. Always had irregular menses when she was younger. No menses since Jan 2022. Working w/ a naturopathic provider about gut health. Was down to 192 lb and up to 225 lb and now has stabilized about 205 lb. Has not been preventing for past year and has not conceived and had semen analysis that was normal per her report. 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: Yes; Male Contraception: No contraception data on record PAST MEDICAL HISTORY Diagnosis Date Abnormal glandular Papanicolaou smear of cervix Fatty liver Insulin resistance PCOS (polycystic ovarian syndrome) PAST SURGICAL HISTORY Procedure Laterality Date PKG SCLEROTHERAPY/VERICOSE VEINS, MULTIPLE VEINS 2021 TEAR DUCT SYSTEM SURGERY 1998 VAGINOSCOPY FAMILY HISTORY Problem Relation Age of Onset Thyroid Mother Obesity Mother Diabetes Father Social History Tobacco Use Smoking status: Former Types: Cigarettes Smokeless tobacco: Never Vaping Use Vaping Use: Never used Substance Use Topics Alcohol use: Not Currently Drug use: Never Current Outpatient Medications Medication Sig 25/iron fum/folic/dha (-1 ORAL) L. acidophilus/Bifid. animalis 32 billion cell cap Take by mouth. dicksondha root extract 500 mg cap 5-hydroxytryptophan, 5-HTP, (5-HTP ORAL) Take by mouth. No current facility-administered medications for this visit. Allergies As of Date: 06/12/2022 Allergen Noted Reaction ANIMAL DANDER 11/06/2015 Cough, Hives, Itching, Rash, and Shortness of Breath SEASONAL ALLERGIES 06/12/2022 Cough and Other: See Comments Fully Assessed 06/12/2022 REVIEW OF SYSTEMS Breast: No breast lumps, nipple d/c, overlying skin changes, redness or skin retraction. Expanded ROS: N/A Endocrine- no polyuria, polydipsia, some hair loss but seems to be coming back, acne stable, some hair growth on face Allergies and current medication updated:Yes EXAM: BP 116/72 Ht 5' 4 (1.63m) Wt 205 lb (93.0kg) LMP 02/25/2022 BMI 35.17 kg/(m^2). GENERAL: pleasant, female in no apparent distress HEENT: Normocephalic, atraumatic, mucus membranes moist, no lesions, and acne vulgaris noted NECK: Supple, full range of motion, no adenopathy, and thyroid normal ASSESSMENT AND PLAN: PCOS, secondary amenorrhea labs ordered eating lower carb diet and exercising regularly. Offered obesity medicine consult, declines. May benefit from trial metformin provera challenge, d/w her bleeding expectations, if heavy consider lysteda for that cycle d/w her option for ovulation induction w/ clomid or femara. R/B/A to this reviewed and instructionsgiven. She will discuss w/ and we will meet after labs and make a plan. encouraged PNV> Medical Decision Making: Problems: Moderate: 1+ chronic illnesses with change Data: Unique test(s) ordered: 3+ Risk: Moderate: Moderate risk from testing/treatment Medical Decision Making Level: 4 - Moderate Arturo Villafana MD documented in this encounterOhiohealth [facility] Center07-20-2022 NoteAccession #: [id number] Date of Procedure: 10/18/2021 Pathologist: [facility], Cytology Date Reported: 10/26/2021 Date Received: 10/18/2021 Submitting Physician: KEVIN CROSS DO Attending Physician: KEVIN CROSS DO FINAL CYTOLOGICAL INTERPRETATION A. THINPREP PAP CERVICAL: Specimen adequacy: SATISFACTORY FOR EVALUATION. Quality Indicator: Endocervical/transformation zone component is present. Quality Indicator: Partially obscured by cytolysis. General Categorization: NEGATIVE FOR INTRAEPITHELIAL LESION OR MALIGNANCY. Ancillary Testing: Specimen does not meet the requisition-stated criteria for HPV testing. See Pap test interpretation above. This specimen has been analyzed by the DistraPrep Imaging System ([employer] an automated imaging and review system, which assists the laboratory in evaluating cells on ThinPrep Pap tests. Following automated imaging, selected romano from every slide were reviewed by a truss puller helper and/or pathologist. Electronically Signed Out By [facility], Cytology//CRR By the signature on this report, the individual or group listed as making the Final Interpretation/Diagnosis certifies that they have reviewed this case. Diagnostic interpretation performed at [facility] [id number] [place] [address]. [place] [address] Educational Note: Cervical cytology is a screening procedure primarily for squamous cancers and precursors and has associated false-negative and false-positive results as evidenced by published data. Your patient?s test should be interpreted in this context, together with patient?s history and clinical findings. Regular sampling and follow-up of unexplained clinical signs and symptoms are recommended to minimize false negative results. Clinical History Date of Last Menstrual Period: 09/27/2021 Other Clinical Conditions: HPV Reflex for ASC-US only - Include HPV Genotype Annual Clinical Diagnosis History: Encounter for screening for cervical cancer - (Z12.4) Source of Specimen A: THINPREP PAP CERVICAL [facility] Department of Pathology [address] [place], [place] [address]Comment on above:Performed By: #### [id number] #### [address] [phone] History of Present illness Narrative* Loreta Kramer RD - 08/18/2021 8:23 AM EDT Medical Nutrition Therapy Initial Visit Patient Name: Maribell Newton Patient : 1995 Primary Care Provider: Aurelia Farmer MD Referred By: Aurelia Farmer MD Referral Diagnosis: Obesity, Low HDL, Hepatic Steatosis Start Time: 8:25 AM End Time: 9:20 AM Nutrition Diagnosis: Food and nutrition related knowledge deficit related to lack of exposure to nutrition information as evidenced by patient interview Nutrition Goals: I will exercise 3-4 days/week for 20 minutes I will watch portions at meals by getting a balance of food groups at meals Follow Up: Contact information provided for additional questions Assessment: Pt present for weight management. Pt reported that she was recently diagnosed with PCOSand fatty liver disease and has been trying to find ways to change her diet to help manage these conditions. Pt has been keeping a food log for the past few weeks. She has also been tracking food intake with [employer] mita, but reported that the points system is confusing at times. She has a history of dieting and shared that she struggled with anorexia in high school. Several years ago she gained a lot of weight due to starting control and feels that her weight loss has reached a plateau since she stopped taking control 2 years ago. She shared that she wants to find a betterway to eat healthy and lose weight without dieting. Diet recall/food log indicated that pt is currently consuming 2 meals/day (usually breakfast or lunch and dinner), with 1 snack/day. Dinners usually incorporate a lean meat, vegetable, and a carb. Intake of low fat dairy and nuts and seeds is low,as pt reported she does not like the taste of these foods after having COVID. 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 Primary support - Cultural or Religous Dietary Needs - none Pertinent Food/Drug Interactions - none Height: 5' 4 (1.626 m) Current Weight: 94.3 kg (208 lb) BMI: BMI Readings from Last 1 Encounters: 08/18/21 35.70 kg/m BMI Classification: Obese Class II (35.0-39.9) Weight History: Pt reported that she has gained ~10# over the past few months Past Medical History: No past medical history on file. History From: History obtained from patient, chart review, and referral documents. Current/Pertinent Medications & Supplements: Zyrtec (as needed for seasonal allergies); Supplements include vitamin, ashwagandha, magnesium, N- Acetyl, and saw palmetto Pertinent Labs: A1c- 5.4% (08/09/21) Nutrition Focused Physical Findings: Dentition: no problems notes GI/food intolerances: dairy (milk and some cheeses; can tolerate small amounts of ice cream and cheese depending on how it is made); beef Food Allergies: none Current Activity Level: Lightly Active- cleans for a living, housework Diet History/Recall: Food Prep/Grocery Shopping - self Breakfast - 8:30-11:30 AM (depends on work schedule)- 2 eggs, 2 pieces of whole wheat toast with avocado, protein drinks ([employer] brand); avocado protein bowl with egg, cheese, meat; smoothies; spinach wrap with cowboy caviar and eggs Lunch - (sometimes skips if she has a late breakfast)- 1-3 PM- leftovers from dinner; gluten free mac and cheese; mediterranean chicken wrap; sushi; spinach chicken wrap; grilled chicken salad Snack- grapes, cherries, oranges, bananas, cucumbers, carrots, cowboy caviar on spinach wrap Dinner - 7-9 PM- pot roast with brussel sprouts, and roasted potatoes; creamy shrimp with rice and broccoli; soup and salad; crab rangoon egg rolls; snack night- fruits and veggies; usually tries to have a protein, vegetable, and a carb for dinner Beverages - water (50-75 oz/day); cut back on sweet tea recently Meals Away From Home - 1x/week or less Alcohol Use - none Food Insecurity- denied need for additional resources at this time Within the past 12 months, we worried whether our food would run out before we got money to buy more [Multiple Answer] Often True [3.00] Sometimes True [2.00] Rarely True [1.00] Never True [0.00] Within the past 12 months, the food we bought just didn't last and we didn't have the money to get more. [Multiple Answer] Often true [3.00] Sometimes true [2.00] Rarely true [1.00] Never true [0.00] Intervention/Education Provided: Discussed the plate method to promote a balance of macronutrients at meals and snacks. Reviewed weight loss tips. Encouraged pt to consume consistent meals and snacks throughout the day and to watch portion sizes for weight management. Recommended gradual weight loss of 1-2#/week. Discussed benefits of physical activity and recommendation of 150 minutes/week. Discussed heart healthy diet tips to raise HDL cholesterol and benefits of omega-3 fatty acids. Reviewed diet and lifestyle interventionsfor fatty liver disease. Estimated Nutritional Needs: Calorie Needs: 1700 kcals/day (MSJ x 1.3AF - 500 to promote gradual weight loss) Patient/Family Education: Learner: patient Readiness: action - ready to set action plan and implement goals Barriers to Learning: none Method: explanation and handout Response: verbalizes understanding Expected Adherence: good Education Materials Provided: Healthy Meal Planning handout ([facility]), Goal Sheet, Weight Loss Tips handout (AND), Move Your Way- Adults Physical Activity handout ([facility]/[email or web address]), Eating, Diet, and Nutrition for NAFLD & KEANE (NIDDKD), Heart Healthy [place]-3 Fatty Acids (NCM), Cholesterol Lowering Nutrition Therapy (NCM) Monitoring/Evaluation: Lab results, weight, food recall, meal planning, goal achievement, physical activity, medication management. This documentation has been sent to the referring healthcare provider. ALVINO Yost, MELODY, LD Direct Patient Education Office documented in this [id number] History of Present illness [id number] presents for endometrial biopsy for oligomenorrhea related to PCOS. Patient is she justhad her cycle last week or so was at 7 days of a heavier period. Patient working on diet exercise and down 3 pounds. Working on some homeopathic treatments for PCOS. [facility] [employer] Work Phone: Evaluation note* Diagnosis Body mass index 36.0-36.9, adult Body Mass Index 36.0-36.9, adult Low HDL (under 40) Hepatic steatosis Other chronic nonalcoholic liver disease documented in this encounter [facility] note* Diagnosis Polycystic ovarian disease- Primary Polycystic ovaries documented in this encounter [facility] note* Diagnosis Secondary amenorrhea- Primary Absence of menstruation PCOS (polycystic ovarian syndrome) Polycystic ovaries documented in this encounter [facility] note* Diagnosis PCO (polycystic ovaries)- Primary Polycystic ovaries documented in this encounter [facility] note* Diagnosis PCOS (polycystic ovarian syndrome)- Primary Polycystic ovaries Polycystic ovarian disease Polycystic ovaries documented in this encounter [facility] note* Diagnosis in first trimester with history of infertility, antepartum- Primary Nausea and vomiting during History of anxiety/depression Personal history of other mental disorder Family history of muscular dystrophy Family history of other neurological diseases documented in this encounter [facility] note* Diagnosis , location unknown- Primary state, incidental with uncertain dates in first trimester in first trimester with history of infertility, antepartum Nausea and vomiting during Family history of muscular dystrophy Family history of other neurological diseases Encounter for care in first trimester of first Nausea and vomiting in Unspecified vomiting of , unspecified as to episode of care Encounter for screening of mother Unspecified screening documented in this encounter [facility] note* Diagnosis in first trimester with history of infertility, antepartum- Primary Nausea and vomiting during 9 weeks gestation of state, incidental [facility]* Diagnosis Obesity in - Primary Obesity complicating , childbirth, or the puerperium, unspecified as to episode of care or not applicable Encounter for supervision of normal first in second trimester Supervision of normal first 12 weeks gestation of state, incidental documented in this encounter [facility] note* Diagnosis Polycystic ovarian disease- Primary Polycystic ovaries documented in this encounter [facility] note* Diagnosis 16 weeks gestation of - Primary state, incidental Obesity in Obesity complicating , childbirth, or the puerperium, unspecified as to episode of care or not applicable Encounter for supervision of normal first in second trimester Supervision of normal first [facility]* Diagnosis Encounter for anatomic survey- Primary Encounter for supervision of normal first in second trimester Supervision of normal first Obesity in Obesity complicating , childbirth, or the puerperium, unspecified as to episode of care or not applicable 19 weeks gestation of state, incidental Obesity affecting in second trimester, unspecified obesity type documented in this encounter [facility] note* Diagnosis 21 weeks gestation of - Primary state, incidental Encounter for supervision of normal first in second trimester Supervision of normal first Depression with anxiety Dysthymic disorder History of anxiety/depression Personal history of other mental disorder documented in this encounter [facility] note* Diagnosis Wellness examination- Primary documented in this encounter [facility] Work Phone: Evaluation note* Diagnosis Supervision of high risk in second trimester- Primary Unspecified high-risk 28 weeks gestation of state, incidental documented in this encounter [facility] note* Diagnosis Anemia during in second trimester- Primary 30 weeks gestation of state, incidental [facility] Encounter for supervision of high risk in third trimester, antepartum- Primary 38 weeks gestation of state, incidental Polyhydramnios in third trimester complication, single or unspecified fetus Antepartum anemia complicating in third trimester [facility]ell [facility] to [facility]. * No previous chronic medical problems, or hospital stays. * She has concerns of chronic irregular periods. She has gone almost four months without a period. Prior to this the longest was 60 days. DOes home tests and have been negative. She has been to Dr Strange and had a few paps, states had abnormal cells and was told to followup in a year. Sheis interested in transferring her dog license officer supervisor care here in town. * She has a fair amount of fatigue, wonders about thyroid testing. * We decided to start with some baseline labs, followup in a few weeks and go from there and she is agreeable. * States she had a workup as a teenager for palpitations and had a valve issue, will get those records as well. [facility] Work Phone: History of Present illness Narrative* Maribell presents for followup and lab review, see previous note . * She has appt with dog license officer supervisor next week. Wonders about checking testosterone level, advised I m going to defer further evaluation to dog license officer supervisor and she is agreeable * She has a very mild elevation of alt, asked her to stop all her supplements and then we can repeat . Stopped b12 as well, level was high. She states she has been off for a month, will repeat. * She would like to be tested for food allergies, and gluten issues, she at times feels nauseous after eating. * BMI 36 -[facility] Work Phone: History of Present illness Narrative* Maribell presents today for followup. * Workup of elevated transaminase suggests fatty liver disease. Discussed percentage of people that progress to cirrhosis and that this is completely reversible essentially with dietary modifications .States she drinks one to two sweetened teas a day, but feels her diet is pretty healthy. 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 * Discussed benefits of working toward ideal body weight with sustainable changes. She is interested in a dietary consult. * Working with dog license officer supervisor, PCOS. [facility] Work Phone: History of Present illness [id number] presents for annual exam. Patient safe at home denies abuse. Patient sexually active without concern. Patient working on diet exercise and natural supplementation to control PCOS. Patientnotes she looks like she is having like 42-day cycles. Has questions. Patient is a breast exams notes no new lumps bumps masses. Patient doing about fertility future as she is knowing more about her P COS but not currently. Patient did not get the Gardasil vaccine. Patient has no other acute concerns[place] [address] [employer] Work Phone: History of Present illness Narrative* Maribell presents with a rash. Has on back of left and some on right leg . Had last summer, then resoved and has flared up a bit. Has tried all kinds of over the counter treatments. It itches a bit. Her vein specialists gave her a topical steroid for something else and she used that on it, and it didn't seem to help much. * BMI down to 33! States working on weight loss. [facility] Work Phone: History of Present illness Narrative* Maribell presents for followup * Due for followup labs for fatty liver. Rash resolved. Has PCOS, sees dog license officer supervisor. * Has been to a holistic provider here locally and is taking herbal supplements. Advised use caution when not fda approved for purpose, side effects or interactions, and I always recommend using caution when the person making the treatment recommendations, also sells the treatment * She will get labs today. * Getting regular exercise, feels well, no other concerns . [facility] Work Phone: Reason for referral (narrative)* Diagnostic Procedure Only (Routine) - Authorized Specialty Diagnoses / Procedures Referred By Nitza t Referred To Contact [facility] Diagnoses Encounter for care in first trimester of first Encounter for screening of mother Procedures NUCHAL TRANSLUCENCY WHI US NUCHAL TRANSLUCENCY 1ST GESTATION Arturo Villafana MD [address] [place] [address] [place] [id number] [place] [address] Referral ID Status Reason Start Date Expiration Date Visits Requested Visits Authorized [id number] Authorized Auto-Generat ed Referral 09/27/2022 09/27/2023 1 1 * Medication Prior Authorization - Closed Specialty Diagnoses / Procedures Referred By Contac t Referred To Contact Arturo Villafana MD [address] [place] [address] Referral ID Status Reason Start Date Expiration Date Visits Re quested Visits Authorized [id number] Closed 1 1 [facility] for referral (narrative)* Diagnostic Procedure Only (Routine) - Authorized Specialty Diagnoses / Procedures Referred By Contac t Referred To Contact [facility] Diagnoses Encounter for supervision of normal first in second trimester Obesity in Procedures OBSTETRIC ULTRASOUND WHI US PREG UTERUS AFTER 1ST TRIMEST GESTATION Jody Pineda MD [address] [place] [address] [place] [id number] [place] [address] Referral ID Status Reason Start Date Expiration Date Visits Requested Visits Authorized [id number] Authorized Auto-Generat ed Referral 10/31/2022 10/31/2023 1 1 [facility] for referral (narrative)* Outpatient Procedure (Routine) - Authorized Specialty Diagnoses / Procedures Referred By Contac t Referred To Contact [facility] Diagnoses 38 weeks gestation of Encounter for supervision of high risk in third trimester, antepartum Polyhydramnios in third trimester complication, single or unspecified fetus Antepartum anemia complicating in third trimester Procedures NON-STRESS TEST NON-STRESS TEST Arturo Villafana MD [address] [place] [address] [facility] [address] [address] Referral ID Status Reason Start Date Expiration Date Visits Requested Visits Authorized [id number] Authorized Auto-Generat ed Referral 05/03/2023 05/02/2024 [address] [facility] Summary Purpose Family History No Family History Records FoundUnknown Family Member Name Dates Details Family history of hypothyroi dism: Mother(V18.19, Z83.49) Status:Active Unknown Family Member Name Dates Details Family history of hypothyroi dism: Mother(V18.19, Z83.49) Status:Active Unknown Family Member Name Dates Details Family history of hypothyroi dism: Mother(V18.19, Z83.49) Status:Active Unknown Family Member Name Dates Details Family history of hypothyroi dism: Mother(V18.19, Z83.49) Status:Active Family history of migraine h eadaches: Mother(V17.2, Z82.0) Status:Active Family history of diabetes m ellitus: Paternal Grandfather(V18.0, Z83.3) Status:Active Family history of lung cance r: Maternal Grandfather(V16.1, Z80.1) Status:Active Unknown Family Member Name Dates Details Family history of migraine h eadaches: Mother(V17.2, Z82.0) Status:Active Family history of diabetes m ellitus: Paternal Grandfather(V18.0, Z83.3) Status:Active Family history of lung cance r: Maternal Grandfather(V16.1, Z80.1) Status:Active Family history of hypothyroi dism: Mother(V18.19, Z83.49) Status:Active Unknown Family Member Name Dates Details Family history of hypothyroi dism: Mother(V18.19, Z83.49) Status:Active Family history of migraine h eadaches: Mother(V17.2, Z82.0) Status:Active Family history of diabetes m ellitus: Paternal Grandfather(V18.0, Z83.3) Status:Active Family history of lung cance r: Maternal Grandfather(V16.1, Z80.1) Status:Active Unknown Family Member Name Dates Details Family history of hypothyroi dism: Mother(V18.19, Z83.49) Status:Active Family history of migraine h eadaches: Mother(V17.2, Z82.0) Status:Active Family history of diabetes m ellitus: Paternal Grandfather(V18.0, Z83.3) Status:Active Family history of lung cance r: Maternal Grandfather(V16.1, Z80.1) Status:Active Unknown Family Member Name Dates Details Family history of hypothyroi dism: Mother(V18.19, Z83.49) Status:Active Family history of migraine h eadaches: Mother(V17.2, Z82.0) Status:Active Family history of diabetes m ellitus: Paternal Grandfather(V18.0, Z83.3) Status:Active Family history of lung cance r: Maternal Grandfather(V16.1, Z80.1) Status:Active Unknown Family Member Name Dates Details Family history of hypothyroi dism: Mother(V18.19, Z83.49) Status:Active Family history of migraine h eadaches: Mother(V17.2, Z82.0) Status:Active Family history of diabetes m ellitus: Paternal Grandfather(V18.0, Z83.3) Status:Active Family history of lung cance r: Maternal Grandfather(V16.1, Z80.1) Status:Active Unknown Family Member Name Dates Details Family history of hypothyroi dism: Mother(V18.19, Z83.49) Status:Active Family history of migraine h eadaches: Mother(V17.2, Z82.0) Status:Active Family history of diabetes m ellitus: Paternal Grandfather(V18.0, Z83.3) Status:Active Family history of lung cance r: Maternal Grandfather(V16.1, Z80.1) Status:Active Unknown Family Member Name Dates Details Family history of hypothyroi dism: Mother(V18.19, Z83.49) Status:Active Family history of migraine h eadaches: Mother(V17.2, Z82.0) Status:Active Family history of diabetes m ellitus: Paternal Grandfather(V18.0, Z83.3) Status:Active Family history of lung cance r: Maternal Grandfather(V16.1, Z80.1) Status:Active Unknown Family Member Name Dates Details Family history of hypothyroi dism: Mother(V18.19, Z83.49) Status:Active Family history of migraine h eadaches: Mother(V17.2, Z82.0) Status:Active Family history of diabetes m ellitus: Paternal Grandfather(V18.0, Z83.3) Status:Active Family history of lung cance r: Maternal Grandfather(V16.1, Z80.1) Status:Active Unknown Family Member Name Dates Details Family history of hypothyroi dism: Mother(V18.19, Z83.49) Status:Active Family history of migraine h eadaches: Mother(V17.2, Z82.0) Status:Active Family history of diabetes m ellitus: Paternal Grandfather(V18.0, Z83.3) Status:Active Family history of lung cance r: Maternal Grandfather(V16.1, Z80.1) Status:Active Unknown Family Member Name Dates Details Family history of hypothyroi dism: Mother(V18.19, Z83.49) Status:Active Family history of migraine h eadaches: Mother(V17.2, Z82.0) Status:Active Family history of diabetes m ellitus: Paternal Grandfather(V18.0, Z83.3) Status:Active Family history of lung cance r: Maternal Grandfather(V16.1, Z80.1) Status:Active Unknown Family Member Name Dates Details Family history of hypothyroi dism: Mother(V18.19, Z83.49) Status:Active Family history of migraine h eadaches: Mother(V17.2, Z82.0) Status:Active Family history of diabetes m ellitus: Paternal Grandfather(V18.0, Z83.3) Status:Active Family history of lung cance r: Maternal Grandfather(V16.1, Z80.1) Status:Active Unknown Family Member Name Dates Details Family history of hypothyroi dism: Mother(V18.19, Z83.49) Status:Active Family history of migraine h eadaches: Mother(V17.2, Z82.0) Status:Active Family history of diabetes m ellitus: Paternal Grandfather(V18.0, Z83.3) Status:Active Family history of lung cance r: Maternal Grandfather(V16.1, Z80.1) Status:Active Advance Directives No Advanced Directives Records FoundNo Advanced Directives Records FoundNo Advanced Directives Records FoundNo Advanced Directives Records FoundNo Advanced Directives Records FoundNo Advanced Directives Records FoundNo Advanced Directives Records FoundNo Advanced Directives Records FoundNo Advanced Directives Records FoundNo Advanced Directives Records Found Chief Complaint Chief Complaint: MARIBELL NEWTON is here with a chief complaint of establish care. Former patient ofCoco Orantes. Refer for elementary school art teacher. Hasn't had menstrual cycle 113 days. No control has taken tests they come back negative. Discuss food allergies testing and thyroid. Fatigued a lot and brittle hair. Chief Complaint: MARIBELL NEWTON is here with a chief complaint of F/U LABS.Chief Complaint: MARIBELL NEWTON is here with a chief complaint of F/U PELIVC AND LIVER US.PT IS HERE TODAY FOR AN EMB. HAS NO NEW Concerns. LMP: 2PT IS HERE TODAY FOR AN ANNUAL EXAM. LAST PAP WAS 09/07/2019, [facility]. HAS NO CONCERNS. DOES A SELF BREAST CHECK. LMP: 2Chief Complaint: MARIBELL NEWTON is here with a chief complaint of C/O RASH ON LT UPPER LEG X 3MO.Chief Complaint: MARIBELL NEWTON is here with a chief complaint of HERE FOR REGULAR CHECK UP; HAS BEEN SEEING A HOLISTIC MEDICINE PROVIDER WHO HAS PUT HER ON SEVERAL HERBAL SUPPLEMENTS. Reason for Referral Specialty Diagnoses / Procedures Referred By Nitza gomez Referred To Contact Endocrinology Diagnoses Polycystic ovarian disease Sherry Bowser, BILLET SHEARER [address] [place] [address] Sonja High, JOSE [address] [place] [address] Referral ID Status Reason Start Date Expiration Date Visits Requested Visits Authorized [id number] Authorized Specialty Services Required/Pat ient's Best Interest 05/16/2022 05/16/2023 1 1 Specialty Diagnoses / Procedures Referred By Nitza gomez Referred To Contact Sonja High, JOSE [address] [place] [address] Referral ID Status Reason Start Date Expiration Date Visits Re quested Visits Authorized [id number] Closed 1 1 Health Concerns Problem Noted Date [facility] - [facility] 08/31 Education - [place] 09/27/2022 Problem Noted Date Diagnosed Date [facility] - [facility] 09/27/2022 [place] - [place] 09/27/2022 Problem Noted Date Diagnosed Date [facility] Education - [facility] 09/27/2022 Education - [place] 09/27/2022 Problem Noted Date Diagnosed Date [facility] - [facility] 09/27/2022 Education - [place] 09/27/2022 Problem Noted Date Diagnosed Date [facility] - [facility] 09/27/2022 Education - [place] 09/27/2022 Problem Noted Date Diagnosed Date [facility] - [facility] 09/27/2022 Education - [place] 09/27/2022 Problem Noted Date Diagnosed Date [facility] - [facility] 09/27/2022 Education - [place] 09/27/2022 Problem Noted Date Diagnosed Date [facility] - [facility] 09/27/2022 Education - [place] 09/27/2022 Problem Noted Date Diagnosed Date [facility] - [facility] 09/27/2022 Education - [place] 09/27/2022 Problem Noted Date Diagnosed Date [facility] - [facility] 09/27/2022 Education - [place] 09/27/2022 Problem Noted Date Diagnosed Date [facility] - [facility] 09/27/2022 Education - [place] 09/27/2022 Problem Noted Date Diagnosed Date [facility] - [facility] 09/27/2022 Education - [place] 09/27/2022 Problem Noted Date Diagnosed Date [facility] - [facility] 09/27/2022 Education - [place] 09/27/2022 Additional Source Comments INFORMATION SOURCE (unrecogn ized section and content) DATE CREATED AUTHOR AUTHOR'S ORGANIZ ATION 08/05/2021 [facility] DATE CREATED AUTHOR AUTHOR'S ORGANIZ ATION 05/11/2022 [facility] DATE CREATED AUTHOR AUTHOR'S ORGANIZ ATION 05/11/2022 [facility] DATE CREATED AUTHOR AUTHOR'S ORGANIZ ATION 11/18/2022 [facility] DATE CREATED AUTHOR AUTHOR'S ORGANIZ ATION 11/24/2022 [facility] DATE CREATED AUTHOR AUTHOR'S ORGANIZ ATION 11/24/2022 [facility] DATE CREATED AUTHOR AUTHOR'S ORGANIZ ATION 01/27/2023 [facility] DATE CREATED AUTHOR AUTHOR'S ORGANIZ ATION 02/16/2023 [facility] DATE CREATED AUTHOR AUTHOR'S ORGANIZ ATION 05/04/2023 [facility] Reason for Visit (unrecogniz ed section and content) Referral ID Status Reason Start Date Expiration Date Visits Re quested Visits Authorized [id number] Closed 08/11/2021 08/11/2022 3 3 Reason Comments Establish Care Reason Comments Results Reason Comments Menstrual Problem Reason Comments Polycystic Ovary Syndrome Specialty Diagnoses / Procedures Referred By Contac t Referred To Contact Endocrinology Diagnoses Polycystic ovarian disease Sherry Bowser, BILLET SHEARER [address] [place] [address] Sonja High, BILLET SHEARER [address] [place] [address] Referral ID Status Reason Start Date Expiration Date V isits Requested Visits Authorized [id number] Closed Specialty Services Required/Corrine ent's Best Interest 05/16/2022 05/16/2023 1 1 Reason Comments Care Reason Comments Initial OB Visit Reason Comments Patient Update Reason Onset Date Comments Care 10/31/2022 Reason Onset Date Comments Care 11/28/2022 Reason Comments US Specialty Diagnoses / Procedures Referred By Contac t Referred To Contact [facility] Diagnoses Encounter for supervision of normal first in second trimester Obesity in Procedures OBSTETRIC ULTRASOUND WHI US PREG UTERUS AFTER 1ST TRIMEST GESTATION Jody Pineda MD [address] [place] [address] [facility] [address] [place] [address] Referral ID Status Reason Start Date Expiration Date V isits Requested Visits Authorized [id number] Closed Auto-Generate d Referral 10/31/2022 10/31/2023 1 1 Reason Onset Date Comments Care 01/02/2023 Reason Comments PRAF Reason Comments ED Follow-up Reason Comments Annual Exam Reason Onset Date Comments Care 02/22/2023 Reason Onset Date Comments Care 03/08/2023 Reason Onset Date Comments Population Health Navigation Outreach 05/02/2023 OB/peds Reason Onset Date Comments Care 05/03/2023 Care Teams (unrecognized sec tion and content) Adult Ministries Director Relationship Specialty Start Date End Date Aurelia Farmer MD [address] [place] [address] PCP - General Obstetrics/Gynecology 08/18/21 Adult Ministries Director Relationship Specialty Start Date End Date Aurelia Farmer MD [address] [place] [address] PCP - General Obstetrics/Gynecology 08/18/21 Adult Ministries Director Relationship Specialty Start Date End Date Aurelia Farmer MD [address] [place] [address] PCP - General Obstetrics/Gynecology 08/18/21 Adult Ministries Director Relationship Specialty Start Date End Date Aurelia Farmer MD [address] [place] [address] [place] [address] PCP - General Family Medicine 01/21/23 Source Comments (unrecognize d section and content) In the event this informatio n is protected by the Federal Confidentiality of Alcohol and Drug Abuse Patient Records regulations: The Federal rules restrict any use of the information to criminally investigate or prosecute any alcohol or drug abuse patient.[facility] the event this information is protected by the Federal Confidentiality of Alcohol and Drug Abuse Patient Records regulations: The Federal rules restrict any use of the information to criminally investigate or prosecute any alcohol or drug abuse patient.[facility] CenterIn the event this information is protected by the Federal Confidentiality of Alcohol and Drug Abuse Patient Records regulations: The Federal rules restrict any use of the information to criminally investigate or prosecute any alcohol or drug abuse patient.[facility] Center[facility] the event this information is protected by the Federal Confidentiality of Alcohol and Drug Abuse Patient Records regulations: The Federal rules restrict any use of the information to criminally investigate or prosecute any alcohol or drug abuse patient.[facility] CenterIn the event this information is protected by the Federal Confidentiality of Alcohol and Drug Abuse Patient Records regulations: The Federal rules restrict any use of the information to criminally investigate or prosecute any alcohol or drug abuse patient.[facility] Center[facility] the event this information is protected by the Federal Confidentiality of Alcohol and Drug Abuse Patient Records regulations: The Federal rules restrict any use of the information to criminally investigate or prosecute any alcohol or drug abuse patient.[facility] CenterIn the event this information is protected by the Federal Confidentiality of Alcohol and Drug Abuse Patient Records regulations: The Federal rules restrict any use of the information to criminally investigate or prosecute any alcohol or drug abuse patient.[facility] CenterIn the event this information is protected by the Federal Confidentiality of Alcohol and Drug Abuse Patient Records regulations: The Federal rules restrict any use of the information to criminally investigate or prosecute any alcohol or drug abuse patient.[facility] CenterIn the event this information is protected by the Federal Confidentiality of Alcohol and Drug Abuse Patient Records regulations: The Federal rules restrict any use of the information to criminally investigate or prosecute any alcohol or drug abuse patient.[facility] CenterIn the event this information is protected by the Federal Confidentiality of Alcohol and Drug Abuse Patient Records regulations: The Federal rules restrict any use of the information to criminally investigate or prosecute any alcohol or drug abuse patient.[facility] CenterIn the event this information is protected by the Federal Confidentiality of Alcohol and Drug Abuse Patient Records regulations: The Federal rules restrict any use of the information to criminally investigate or prosecute any alcohol or drug abuse patient.[facility] CenterIn the event this information is protected by the Federal Confidentiality of Alcohol and Drug Abuse Patient Records regulations: The Federal rules restrict any use of the information to criminally investigate or prosecute any alcohol or drug abuse patient.[facility] CenterIn the event this information is protected by the Federal Confidentiality of Alcohol and Drug Abuse Patient Records regulations: The Federal rules restrict any use of the information to criminally investigate or prosecute any alcohol or drug abuse patient.[facility] CenterIn the event this information is protected by the Federal Confidentiality of Alcohol and Drug Abuse Patient Records regulations: The Federal rules restrict any use of the information to criminally investigate or prosecute any alcohol or drug abuse patient.[facility] CenterIn the event this information is protected by the Federal Confidentiality of Alcohol and Drug Abuse Patient Records regulations: The Federal rules restrict any use of the information to criminally investigate or prosecute any alcohol or drug abuse patient.[facility] CenterIn the event this information is protected by the Federal Confidentiality of Alcohol and Drug Abuse Patient Records regulations: The Federal rules restrict any use of the information to criminally investigate or prosecute any alcohol or drug abuse patient.[facility] CenterIn the event this information is protected by the Federal Confidentiality of Alcohol and Drug Abuse Patient Records regulations: The Federal rules restrict any use of the information to criminally investigate or prosecute any alcohol or drug abuse patient.[facility] CenterIn the event this information is protected by the Federal Confidentiality of Alcohol and Drug Abuse Patient Records regulations: The Federal rules restrict any use of the information to criminally investigate or prosecute any alcohol or drug abuse patient.[facility] FOR RECORDS PERTAINING TO PATIENTS WHO ARE OR HAVE BEEN ENROLLED IN A CHEMICAL DEPENDENCY/SUBSTANCEABUSE PROGRAM, SOME INFORMATION MAY BE OMITTED. This clinical summary was aggregated from multiple sources. Caution should be exercised in using it in the provision of clinical care. This summary normalizes information from multiple sources, and as a consequence, information in this document may materially change the coding, format and clinical context of patient data. In addition, data may be omitted in some cases. CLINICAL DECISIONS SHOULD BE BASED ON THE PRIMARY CLINICAL RECORDS. [facility] [employer] [facility]. provides no warranty or guarantee of the accuracy or completeness of information in this document.
[2023-05-06 13:04] LABS: ROM Internal Control Test YES-OK TO RESULT pt. (Internal QC)
[2023-05-06 13:06] LABS: ROM Patient Test POSITIVE (Negative)
[2023-05-06] MEDS: Lactated Ringers 1,000 ML 50 ML IV (14:12)
[2023-05-06 14:33] LABS: Absolute Lymphocyte Count 1.85 X10^3/uL (0.83-4.51); Absolute Neutrophil Count 18.3 X10^3/uL (2.0-7.7); Basophil# 0.11 X10^3/uL; Basophil% 0.5 % (0-1); Eosinophil# 0.04 X10^3/uL; Eosinophils% 0.2 % (0-5); Hemoglobin 11.3 g/dL (12.0-15.0); Lymphocyte # 1.85 X10^3/ul (0.83-4.51); Lymphocyte % 8.6 % (19-41); Mean Corp Hgb Conc 33.2 g/dL (32-36); Mean Corpuscular Hgb 29.3 pg (27.0-32.0); Mean Corpuscular Volume 88.1 fL (81-99); Mean Platelet Vol. 11.4 fl (6.2-12.0); Monocyte% 4.2 % (0-10); NRBC Flagged by Analyzer 0 % (0-5); Neutrophil # 18.34 X10^3/uL (2.7-7.7); Neutrophil % 85.7 % (47-70); Platelet Count 218 K/mm3 (150-450); RBC Distribution Width CV 13.2 % (11.6-14.6); RBC Distribution Width SD 42.4 fl (35.1-43.9); Red Blood Count 3.86 M/mm3 (4.2-5.4); White Blood Count 21.4 K/mm3 (4.4-11.0)
[2023-05-06 15:13] LABS: Syphilis Antibodies Non-reactive
[2023-05-06] MEDS: Oxytocin 15 Units/NS 250ml 15 UNITS/250 ML IV.SOLN 2 UNITS IV (16:31)
[2023-05-06] MEDS: LACTATED RINGERS 500 ML 999 ML IV ×2 (17:20→19:20)
[2023-05-06] MEDS: Ondansetron 4 MG/2 ML Vial IV (17:32)
[2023-05-06] MEDS: fentaNYL-bupivacaine (epidural) 100 ML BAG EPIDURAL (20:09)
[2023-05-06] MEDS: Lactated Ringers 1,000 ML 200 ML IV (22:23)
[2023-05-06] MEDS: Mag Hydrox/Al Hydrox/Simeth 30 ML UDC PO (23:11)
[2023-05-07] VITALS (47 sets, daily range): BP systolic 96–122; BP diastolic 46–70; PULSE 64–91; RESP 16; TEMP 36.6–37.3; O2SAT 92–100
[2023-05-07] MEDS: fentaNYL-bupivacaine (epidural) 100 ML BAG EPIDURAL (00:49)
[2023-05-07] MEDS: Lactated Ringers 1,000 ML 999 ML IV (04:27)
--- NOTE | 2023-05-07 05:10 | PCM.HP.OB ---
HPI - General General Date of Admission: 05/06/23 HPI Narrative TENNILLE MONTIEL, is a 28 F who presents at 38w6d with SROM at term. Maternal Data Information ANNABELLA Calculator Estimated Delivery Date Method Current WG Current Estimate 05/14/23 Manual 39w 0d PFSH PFSH Medical History (Updated 05/07/23 @ 05:33 by Tennille Amin CNM) Anxiety Depression Liver disease PCO (polycystic ovaries) PCOS (polycystic ovarian syndrome) Superficial varicosities Home Medications ferrous sulfate 325 mg (65 mg iron) tablet 325 mg PO DAILY anemia 02/04/23 [History Last Taken 05/05/23 22:00 325 mg] magnesium 200 mg tablet 400 mg PO DAILY 05/06/23 [History Last Taken 05/05/23 09:00 400 mg] [id number] 1 mg tablet tab PO DAILY 05/06/23 [History Last Taken 05/05/23 08:00 1 TAB] Allergy/AdvReac Type Severity Reaction Status Date / Time No Known Allergies Allergy Verified 05/06/23 14:55 Surgical History (Updated 05/06/23 @ 14:54 by Lori Daniel) History of surgery S/P laparoscopic cholecystectomy Social History household members: spouse Smoking Status: Former smoker History Elective abortions Hx Para 0 Spontaneous abortions Hx # Term Pregnancies Ectopic pregnancies Hx # Pregnancies Multiple births # of living children Vital Signs Vital Signs Vital Signs: 05/06/23 12:53 05/06/23 12:54 05/06/23 12:54 Temperature 97.9 F Temperature Source Pulse Rate 212 H Respiratory Rate Blood Pressure Blood Pressure [BP] Blood Pressure Mean [BP] BP Systolic BP Diastolic Blood Pressure Source [BP] Blood Pressure Position [BP] Blood Pressure Location [BP] Pulse Ox 83 Oxygen Delivery Method 05/06/23 13:00 05/06/23 13:00 05/06/23 13:00 Temperature Temperature Source Temporal Pulse Rate 69 Respiratory Rate Blood Pressure 118/70 Blood Pressure [BP] Blood Pressure Mean [BP] BP Systolic 118 BP Diastolic 70 Blood Pressure Source [BP] Blood Pressure Position [BP] Blood Pressure Location [BP] Pulse Ox Oxygen Delivery Method 05/06/23 13:00 05/06/23 13:00 05/06/23 13:00 Temperature 97.9 F Temperature Source Temporal Pulse Rate Respiratory Rate Blood Pressure Blood Pressure [BP] Blood Pressure Mean [BP] BP Systolic BP Diastolic Blood Pressure Source [BP] Blood Pressure Position [BP] Blood Pressure Location [BP] Pulse Ox 98 Oxygen Delivery Method 05/06/23 14:28 05/06/23 14:28 05/06/23 14:28 Temperature Temperature Source Pulse Rate 67 Respiratory Rate Blood Pressure 123/67 H Blood Pressure [BP] Blood Pressure Mean [BP] BP Systolic 123 BP Diastolic 67 Blood Pressure Source [BP] Blood Pressure Position [BP] Blood Pressure Location [BP] Pulse Ox 98 Oxygen Delivery Method 05/06/23 14:28 05/06/23 14:43 05/06/23 14:43 Temperature 98.2 F 98.3 F Temperature Source Temporal Pulse Rate Respiratory Rate Blood Pressure Blood Pressure [BP] Blood Pressure Mean [BP] BP Systolic BP Diastolic Blood Pressure Source [BP] Blood Pressure Position [BP] Blood Pressure Location [BP] Pulse Ox Oxygen Delivery Method 05/06/23 16:08 05/06/23 16:08 05/06/23 16:09 Temperature Temperature Source Temporal Pulse Rate 81 Respiratory Rate Blood Pressure 132/79 H Blood Pressure [BP] Blood Pressure Mean [BP] BP Systolic 132 BP Diastolic 79 Blood Pressure Source [BP] Blood Pressure Position [BP] Blood Pressure Location [BP] Pulse Ox Oxygen Delivery Method 05/06/23 16:09 05/06/23 16:09 05/06/23 16:09 Temperature 99.1 F Temperature Source Pulse Rate 84 Respiratory Rate Blood Pressure Blood Pressure [BP] Blood Pressure Mean [BP] BP Systolic BP Diastolic Blood Pressure Source [BP] Blood Pressure Position [BP] Blood Pressure Location [BP] Pulse Ox 98 Oxygen Delivery Method 05/06/23 16:17 05/06/23 16:17 05/06/23 16:22 Temperature Temperature Source Pulse Rate 89 81 Respiratory Rate Blood Pressure Blood Pressure [BP] Blood Pressure Mean [BP] BP Systolic BP Diastolic Blood Pressure Source [BP] Blood Pressure Position [BP] Blood Pressure Location [BP] Pulse Ox 98 Oxygen Delivery Method 05/06/23 16:22 05/06/23 17:14 05/06/23 17:19 Temperature 98.8 F Temperature Source Pulse Rate 79 Respiratory Rate Blood Pressure Blood Pressure [BP] Blood Pressure Mean [BP] BP Systolic BP Diastolic Blood Pressure Source [BP] Blood Pressure Position [BP] Blood Pressure Location [BP] Pulse Ox 97 Oxygen Delivery Method 05/06/23 17:19 05/06/23 17:25 05/06/23 17:25 Temperature Temperature Source Pulse Rate 98 Respiratory Rate Blood Pressure Blood Pressure [BP] Blood Pressure Mean [BP] BP Systolic BP Diastolic Blood Pressure Source [BP] Blood Pressure Position [BP] Blood Pressure Location [BP] Pulse Ox 99 90 Oxygen Delivery Method 05/06/23 17:34 05/06/23 17:34 05/06/23 17:39 Temperature Temperature Source Pulse Rate 86 78 Respiratory Rate Blood Pressure Blood Pressure [BP] Blood Pressure Mean [BP] BP Systolic BP Diastolic Blood Pressure Source [BP] Blood Pressure Position [BP] Blood Pressure Location [BP] Pulse Ox 98 Oxygen Delivery Method 05/06/23 17:39 05/06/23 18:30 05/06/23 18:29 Temperature 97.2 F L Temperature Source Temporal Pulse Rate Respiratory Rate Blood Pressure Blood Pressure [BP] Blood Pressure Mean [BP] BP Systolic BP Diastolic Blood Pressure Source [BP] Blood Pressure Position [BP] Blood Pressure Location [BP] Pulse Ox 97 Oxygen Delivery Method 05/06/23 18:29 05/06/23 18:34 05/06/23 18:34 Temperature 97.1 F L Temperature Source Pulse Rate 62 Respiratory Rate Blood Pressure 118/59 L Blood Pressure [BP] Blood Pressure Mean [BP] BP Systolic 118 BP Diastolic 59 Blood Pressure Source [BP] Blood Pressure Position [BP] Blood Pressure Location [BP] Pulse Ox Oxygen Delivery Method 05/06/23 19:31 05/06/23 19:31 05/06/23 19:36 Temperature 97.3 F L Temperature Source Pulse Rate 54 L Respiratory Rate Blood Pressure 114/63 Blood Pressure [BP] Blood Pressure Mean [BP] BP Systolic 114 BP Diastolic 63 Blood Pressure Source [BP] Blood Pressure Position [BP] Blood Pressure Location [BP] Pulse Ox Oxygen Delivery Method 05/06/23 20:06 05/06/23 20:06 05/06/23 20:07 Temperature Temperature Source Pulse Rate 65 Respiratory Rate Blood Pressure 119/72 Blood Pressure [BP] Blood Pressure Mean [BP] BP Systolic 119 BP Diastolic 72 Blood Pressure Source [BP] Blood Pressure Position [BP] Blood Pressure Location [BP] Pulse Ox 94 Oxygen Delivery Method 05/06/23 20:07 05/06/23 20:10 05/06/23 20:10 Temperature Temperature Source Pulse Rate 80 74 Respiratory Rate Blood Pressure Blood Pressure [BP] Blood Pressure Mean [BP] BP Systolic BP Diastolic Blood Pressure Source [BP] Blood Pressure Position [BP] Blood Pressure Location [BP] Pulse Ox 98 Oxygen Delivery Method 05/06/23 20:12 05/06/23 20:12 05/06/23 20:15 Temperature Temperature Source Pulse Rate 70 72 Respiratory Rate Blood Pressure 126/76 H Blood Pressure [BP] Blood Pressure Mean [BP] BP Systolic 126 BP Diastolic 76 Blood Pressure Source [BP] Blood Pressure Position [BP] Blood Pressure Location [BP] Pulse Ox Oxygen Delivery Method 05/06/23 20:15 05/06/23 20:16 05/06/23 20:16 Temperature Temperature Source Pulse Rate 68 Respiratory Rate Blood Pressure 117/67 Blood Pressure [BP] Blood Pressure Mean [BP] BP Systolic 117 BP Diastolic 67 Blood Pressure Source [BP] Blood Pressure Position [BP] Blood Pressure Location [BP] Pulse Ox 99 Oxygen Delivery Method 05/06/23 20:21 05/06/23 20:21 05/06/23 20:20 Temperature Temperature Source Pulse Rate 69 Respiratory Rate Blood Pressure 122/71 H Blood Pressure [BP] Blood Pressure Mean [BP] BP Systolic 122 BP Diastolic 71 Blood Pressure Source [BP] Blood Pressure Position [BP] Blood Pressure Location [BP] Pulse Ox 98 Oxygen Delivery Method 05/06/23 20:26 05/06/23 20:26 05/06/23 20:25 Temperature Temperature Source Pulse Rate 63 Respiratory Rate Blood Pressure 117/69 Blood Pressure [BP] Blood Pressure Mean [BP] BP Systolic 117 BP Diastolic 69 Blood Pressure Source [BP] Blood Pressure Position [BP] Blood Pressure Location [BP] Pulse Ox 100 Oxygen Delivery Method 05/06/23 20:30 05/06/23 20:30 05/06/23 20:31 Temperature Temperature Source Pulse Rate 69 Respiratory Rate Blood Pressure 112/64 Blood Pressure [BP] Blood Pressure Mean [BP] BP Systolic 112 BP Diastolic 64 Blood Pressure Source [BP] Blood Pressure Position [BP] Blood Pressure Location [BP] Pulse Ox 98 Oxygen Delivery Method 05/06/23 20:31 05/06/23 20:31 05/06/23 20:35 Temperature Temperature Source Pulse Rate 72 68 Respiratory Rate Blood Pressure Blood Pressure [BP] Blood Pressure Mean [BP] BP Systolic BP Diastolic Blood Pressure Source [BP] Blood Pressure Position [BP] Blood Pressure Location [BP] Pulse Ox 92 Oxygen Delivery Method 05/06/23 20:35 05/06/23 20:37 05/06/23 20:37 Temperature Temperature Source Pulse Rate 60 Respiratory Rate Blood Pressure 100/52 L Blood Pressure [BP] Blood Pressure Mean [BP] BP Systolic 100 BP Diastolic 52 Blood Pressure Source [BP] Blood Pressure Position [BP] Blood Pressure Location [BP] Pulse Ox 100 Oxygen Delivery Method 05/06/23 20:40 05/06/23 20:40 05/06/23 20:42 Temperature Temperature Source Pulse Rate 59 L Respiratory Rate Blood Pressure 93/52 L Blood Pressure [BP] Blood Pressure Mean [BP] BP Systolic 93 BP Diastolic 52 Blood Pressure Source [BP] Blood Pressure Position [BP] Blood Pressure Location [BP] Pulse Ox 100 Oxygen Delivery Method 05/06/23 20:42 05/06/23 20:45 05/06/23 20:45 Temperature Temperature Source Pulse Rate 59 L 62 Respiratory Rate Blood Pressure Blood Pressure [BP] Blood Pressure Mean [BP] BP Systolic BP Diastolic Blood Pressure Source [BP] Blood Pressure Position [BP] Blood Pressure Location [BP] Pulse Ox 100 Oxygen Delivery Method 05/06/23 20:48 05/06/23 20:48 05/06/23 20:50 Temperature Temperature Source Pulse Rate 68 61 Respiratory Rate Blood Pressure 103/51 L Blood Pressure [BP] Blood Pressure Mean [BP] BP Systolic 103 BP Diastolic 51 Blood Pressure Source [BP] Blood Pressure Position [BP] Blood Pressure Location [BP] Pulse Ox Oxygen Delivery Method 05/06/23 20:50 05/06/23 20:53 05/06/23 20:53 Temperature Temperature Source Pulse Rate 59 L Respiratory Rate Blood Pressure 96/54 L Blood Pressure [BP] Blood Pressure Mean [BP] BP Systolic 96 BP Diastolic 54 Blood Pressure Source [BP] Blood Pressure Position [BP] Blood Pressure Location [BP] Pulse Ox 99 Oxygen Delivery Method 05/06/23 20:56 05/06/23 20:56 05/06/23 20:55 Temperature Temperature Source Pulse Rate 59 L Respiratory Rate Blood Pressure 106/59 L Blood Pressure [BP] Blood Pressure Mean [BP] BP Systolic 106 BP Diastolic 59 Blood Pressure Source [BP] Blood Pressure Position [BP] Blood Pressure Location [BP] Pulse Ox 100 Oxygen Delivery Method 05/06/23 21:01 05/06/23 21:12 05/06/23 21:12 Temperature 97.2 F L Temperature Source Pulse Rate 60 Respiratory Rate Blood Pressure 101/55 L Blood Pressure [BP] Blood Pressure Mean [BP] BP Systolic 101 BP Diastolic 55 Blood Pressure Source [BP] Blood Pressure Position [BP] Blood Pressure Location [BP] Pulse Ox Oxygen Delivery Method 05/06/23 21:52 05/06/23 21:52 05/06/23 21:52 Temperature 97.5 F L Temperature Source Pulse Rate 62 Respiratory Rate Blood Pressure 115/54 L Blood Pressure [BP] Blood Pressure Mean [BP] BP Systolic 115 BP Diastolic 54 Blood Pressure Source [BP] Blood Pressure Position [BP] Blood Pressure Location [BP] Pulse Ox Oxygen Delivery Method 05/06/23 21:52 05/06/23 21:52 05/06/23 23:06 Temperature Temperature Source Pulse Rate 67 Respiratory Rate Blood Pressure 118/55 L Blood Pressure [BP] Blood Pressure Mean [BP] BP Systolic 118 BP Diastolic 55 Blood Pressure Source [BP] Blood Pressure Position [BP] Blood Pressure Location [BP] Pulse Ox 91 Oxygen Delivery Method 05/06/23 23:06 05/07/23 00:29 05/07/23 00:30 Temperature 97.9 F Temperature Source Pulse Rate 78 Respiratory Rate Blood Pressure 98/50 L Blood Pressure [BP] Blood Pressure Mean [BP] BP Systolic 98 BP Diastolic 50 Blood Pressure Source [BP] Blood Pressure Position [BP] Blood Pressure Location [BP] Pulse Ox Oxygen Delivery Method 05/07/23 00:30 05/07/23 00:30 05/07/23 00:31 Temperature Temperature Source Pulse Rate 68 Respiratory Rate Blood Pressure 96/46 L Blood Pressure [BP] Blood Pressure Mean [BP] BP Systolic 96 BP Diastolic 46 Blood Pressure Source [BP] Blood Pressure Position [BP] Blood Pressure Location [BP] Pulse Ox 97 Oxygen Delivery Method 05/07/23 00:31 05/07/23 02:47 05/07/23 02:47 Temperature Temperature Source Pulse Rate 74 84 Respiratory Rate Blood Pressure 114/59 L Blood Pressure [BP] Blood Pressure Mean [BP] BP Systolic 114 BP Diastolic 59 Blood Pressure Source [BP] Blood Pressure Position [BP] Blood Pressure Location [BP] Pulse Ox Oxygen Delivery Method 05/07/23 02:47 05/07/23 03:11 05/07/23 03:11 Temperature 98.9 F Temperature Source Oral Pulse Rate Respiratory Rate Blood Pressure Blood Pressure [BP] Blood Pressure Mean [BP] BP Systolic BP Diastolic Blood Pressure Source [BP] Blood Pressure Position [BP] Blood Pressure Location [BP] Pulse Ox 97 Oxygen Delivery Method 05/07/23 04:08 05/07/23 04:26 05/07/23 04:26 Temperature 98.8 F Temperature Source Pulse Rate 69 Respiratory Rate Blood Pressure Blood Pressure [BP] Blood Pressure Mean [BP] BP Systolic BP Diastolic Blood Pressure Source [BP] Blood Pressure Position [BP] Blood Pressure Location [BP] Pulse Ox 99 Oxygen Delivery Method 05/07/23 04:31 05/07/23 04:31 05/07/23 04:33 Temperature Temperature Source Pulse Rate 82 87 Respiratory Rate Blood Pressure Blood Pressure [BP] Blood Pressure Mean [BP] BP Systolic BP Diastolic Blood Pressure Source [BP] Blood Pressure Position [BP] Blood Pressure Location [BP] Pulse Ox 99 Oxygen Delivery Method 05/07/23 04:33 05/07/23 04:36 05/07/23 04:36 Temperature Temperature Source Pulse Rate 69 Respiratory Rate Blood Pressure 111/54 L Blood Pressure [BP] Blood Pressure Mean [BP] BP Systolic 111 BP Diastolic 54 Blood Pressure Source [BP] Blood Pressure Position [BP] Blood Pressure Location [BP] Pulse Ox 92 Oxygen Delivery Method 05/07/23 04:36 05/07/23 04:36 05/07/23 04:41 Temperature Temperature Source Pulse Rate 71 91 Respiratory Rate Blood Pressure Blood Pressure [BP] Blood Pressure Mean [BP] BP Systolic BP Diastolic Blood Pressure Source [BP] Blood Pressure Position [BP] Blood Pressure Location [BP] Pulse Ox 100 Oxygen Delivery Method 05/07/23 04:41 05/07/23 04:46 05/07/23 04:46 Temperature Temperature Source Pulse Rate 82 Respiratory Rate Blood Pressure Blood Pressure [BP] Blood Pressure Mean [BP] BP Systolic BP Diastolic Blood Pressure Source [BP] Blood Pressure Position [BP] Blood Pressure Location [BP] Pulse Ox 98 99 Oxygen Delivery Method 05/07/23 04:48 05/07/23 04:48 05/07/23 04:51 Temperature Temperature Source Pulse Rate 78 77 Respiratory Rate Blood Pressure 109/55 L Blood Pressure [BP] Blood Pressure Mean [BP] BP Systolic 109 BP Diastolic 55 Blood Pressure Source [BP] Blood Pressure Position [BP] Blood Pressure Location [BP] Pulse Ox Oxygen Delivery Method 05/07/23 04:51 05/07/23 04:51 05/07/23 04:56 Temperature 99.0 F Temperature Source Pulse Rate 81 Respiratory Rate Blood Pressure Blood Pressure [BP] Blood Pressure Mean [BP] BP Systolic BP Diastolic Blood Pressure Source [BP] Blood Pressure Position [BP] Blood Pressure Location [BP] Pulse Ox 99 Oxygen Delivery Method 05/07/23 04:56 05/07/23 05:01 05/07/23 05:01 Temperature Temperature Source Pulse Rate 74 Respiratory Rate Blood Pressure Blood Pressure [BP] Blood Pressure Mean [BP] BP Systolic BP Diastolic Blood Pressure Source [BP] Blood Pressure Position [BP] Blood Pressure Location [BP] Pulse Ox 98 99 Oxygen Delivery Method 05/07/23 05:03 05/07/23 05:03 05/07/23 05:06 Temperature Temperature Source Pulse Rate 65 75 Respiratory Rate Blood Pressure 97/51 L Blood Pressure [BP] Blood Pressure Mean [BP] BP Systolic 97 BP Diastolic 51 Blood Pressure Source [BP] Blood Pressure Position [BP] Blood Pressure Location [BP] Pulse Ox Oxygen Delivery Method 05/07/23 05:06 05/06/23 13:00 Temperature 97.9 F Temperature Source Temporal Pulse Rate 64 Respiratory Rate 16 Blood Pressure Blood Pressure [BP] 118/70 Blood Pressure Mean [BP] 86 BP Systolic BP Diastolic Blood Pressure Source [BP] Monitor Blood Pressure Position [BP] Semi-Fowlers Blood Pressure Location [BP] Right Arm Pulse Ox 99 98 Oxygen Delivery Method Room Air Weight Weight: 207 lb 14.334 oz Body Mass Index (BMI) 35.6 Labs Labs Labs: Blood Type A POSITIVE Antibody Screen NEGATIVE Hct 34.0 % (37-47) L Hgb 11.3 g/dL (12.0-15.0) L Syphilis Total Ab Non-reactive GBS negative RPR negative HIV negative HBsAG negative HepC negative A positive Rubella Immune GC/CT negative Assessment & Plan (1) PROM (premature rupture of membranes): (2) 38 weeks gestation of : (3) Obesity: (4) Family history of muscular dystrophy: (5) History of anxiety: (6) History of depression: PLAN: Plan 1) Admit to labor and delivery 2) Routine labs 3) GBS negative 4) PROM, ROM 0200, pitocin augmentation 5) Epidural for pain management 6) collaborative physician and notified of patient status
[2023-05-07] MEDS: Oxytocin 15 Units/NS 250ml 15 UNITS/250 ML IV.SOLN 83 UNITS IV (05:14)
--- NOTE | 2023-05-07 07:37 | PCM.OPRPT ---
Problems Associated Problem List Diagnoses (1) Vaginal delivery: (2) Obstetric vaginal laceration: Report of Operation Date of Procedure: 05/07/23 Pre-Operative Diagnosis: SROM, term IUP, obesity in Post-Operative Diagnosis: As above Surgery/Procedure Performed:: Repair of 1st degree vaginal laceration Description of Surgical Findings:: Normal appearing placenta with 3 VC Surgeon: Tara Rodríguez Type of Anesthesia: Epidural Special Medications: None Specimen's removed: Placenta Drains: [place] Estimated Blood Loss (mL): 50 Fluids Replaced: N/A Description of Procedure: Patient complete and pushing. Vigorous viable infant was delivered by nursing staff. I presented to the room once the infant was on mother's abdomen. The cord was clamped and cut after 60 second delay by the FOB. Cord gases were sent. The placenta was delivered with gentle traction on the cord. The placenta was normal appearing and intact with a 3VC. Fundus firm and bleeding hemostatic. 3-0 Vicryl was used to repair a first degree vaginal laceration. Sponge counts were correct and a vaginal sweep performed. Grafts/Implants Used: None Complications None
[2023-05-07] MEDS: Ibuprofen 600 MG Tablet PO (18:02)
[2023-05-07] MEDS: Acetaminophen 500 MG Tablet 1000 MG PO (20:17)
[2023-05-08 04:45] VITALS: BP 114/69; PULSE 77; RESP 16; O2SAT 97
[2023-05-08] MEDS: Acetaminophen 500 MG Tablet 1000 MG PO (04:48)
[2023-05-08 06:39] LABS: Absolute Lymphocyte Count 2.67 X10^3/uL (0.83-4.51); Absolute Neutrophil Count 12.6 X10^3/uL (2.0-7.7); Basophil% 0.6 % (0-1); Eosinophil# 0.28 X10^3/uL; Eosinophils% 1.6 % (0-5); Hematocrit 29.4 % (37-47); Hemoglobin 9.6 g/dL (12.0-15.0); Lymphocyte # 2.67 X10^3/ul (0.83-4.51); Lymphocyte % 15.6 % (19-41); Mean Corp Hgb Conc 32.7 g/dL (32-36); Mean Corpuscular Hgb 29.4 pg (27.0-32.0); Mean Corpuscular Volume 90.2 fL (81-99); Monocyte% 7.6 % (0-10); NRBC Flagged by Analyzer 0 % (0-5); Neutrophil # 12.57 X10^3/uL (2.7-7.7); Neutrophil % 73.7 % (47-70); Platelet Count 175 K/mm3 (150-450); RBC Distribution Width CV 13.4 % (11.6-14.6); RBC Distribution Width SD 44.2 fl (35.1-43.9); Red Blood Count 3.26 M/mm3 (4.2-5.4); White Blood Count 17.1 K/mm3 (4.4-11.0)
--- NOTE | 2023-05-08 07:15 | DS.PCM_ITS ---
Providers Date of Admission: 05/06/23 Primary Care Physician: Dr. Aurelia Will MD Reason For Visit: VAG Diagnosis Discharge Diagnosis (1) Vaginal delivery: Status: Acute Code(s): O80 - Encounter for full-term uncomplicated delivery (2) Obstetric vaginal laceration: Status: Acute Code(s): O71.4 - Obstetric high vaginal laceration alone Plan PPD 1 Routine care support Desires discharge home today Medications at Discharge Home Medications ferrous sulfate 325 mg (65 mg iron) tablet 325 mg PO DAILY anemia 02/04/23 magnesium 200 mg tablet 400 mg PO DAILY 05/06/23 [id number] 1 mg tablet tab PO DAILY 05/06/23 Hospital Course Operations None Procedures None Summary of Care Provided Minutes Spent on Discharge: 10 Hospital Course: Patient had . Hospital course was uneventful Physical Exam Const alert and no apparent distress General Appearance: cooperative and comfortable Exam Limitations: no limitations HEENT normocephalic Eyes General Eye: normal appearance of both eyes Neck full ROM General: normal visual inspection Chest Chest: symmetrical chest wall rise Resp normal respiratory effort and normal air movement Effort and Inspection: symmetric chest movement Auscultation: clear to auscultation bilaterally Cardio regular rate and regular rhythm GI normal to inspection, nondistended, normoactive bowel sounds Back/Spine normal ROM Extremity full ROM and no calf tenderness General Extremity: normal exam except as noted Skin no rashes or lesions noted Neuro CN's II-XII intact bilaterally Psych mental status grossly normal Weight / BMI Weight Weight: 207 lb 14.334 oz Body Mass Index (BMI) 35.6 ABG / Lab / Microbiology Data 05/08/23 06:20 Laboratory: Laboratory Results - last 24 hr 05/08/23 06:20: WBC 17.1 H, RBC 3.26 L, Hgb 9.6 L, Hct 29.4 L, MCV 90.2, MCH 29.4, MCHC 32.7, RDW Std Deviation 44.2 H, RDW Coeff of Court 13.4, Plt Count 175, MPV 11.0, Immature Gran % (Auto) 0.900, Neut % (Auto) 73.7 H, Lymph % (Auto) 15.6 L, [place] % (Auto) 7.6, Eos % (Auto) 1.6, Baso % (Auto) 0.6, Absolute Neuts (auto) 12.6 H, Absolute Lymphs (auto) 2.67, Nucleated RBC % 0 D/C Instructions Discharge Diet: No restrictions May resume sexual activity in: 6-8 weeks Weight Bearing Status: Weight bearing as tolerated Call your doctor if you observe: Fever of 101 or Higher, Inability to urinate, Using more than 1 pad per hour, Shortness of breath, Chest pain, Calf discomfort and Uncontrolled pain When: 2 weeks virtual visit/ 6 weeks in office Meaningful Use Info Meaningful Use Diagnoses (Choose all that apply): None applicable Discharge Plan Admission Admit Date/Time: 05/06/23 13:07 Primary Reason for Your Visit: Labor and Delivery Attending Provider: Tara Rodríguez Primary Care Provider: Aurelia Will Discharge Orders/Prescriptions Prescriptions: Continued ferrous sulfate 325 mg (65 mg iron) tablet 325 mg PO DAILY [id number] 1 mg tablet PO DAILY magnesium 200 mg tablet 400 mg PO DAILY Referrals / Follow Up: Geena Wellington CNM [Med Staff - [facility] Practice Prof] - Aurelia Will MD [Primary Care Provider] - Disposition Disposition (needs filled in before D/C Order can be placed): Home, Self Care
[2023-05-08 10:00] VITALS: BP 115/71; PULSE 87; RESP 16; TEMP 36.7
--- NOTE | 2023-05-08 11:56 | CASEMGMT ---
Social Work Assessment Labor and Delivery Unit Patient Address: [address] [place] [address] Phone number:[phone] Date of Referral: 05/07/23 Time of Referral:? 624 Referred By: Tara Rodríguez Date of Intervention: ??05/08/23 Time of Intervention:? 1100 Reason for Referral:? anxiety and depression Sw completed chart review and acknowledges social work consult due to maternal mental health history positive for anxiety and depression. Sw presented to bedside and introduced self to mother of baby (STEPHON- Maribell) and father of baby (FOSee- Rene). Sw explained reason for sw involvement and completed psychosocial assessment. History obtained from: medical records, MOB and FOB Household composition: Currently residing in the family home is MOB, FOSee and now baby. Parents deny any concerns or issues with their housing, reporting that it is safe and secure. Patient's parent/guardian status:? Parents report that they met through mutual friends and have been together for 5 years. No concerns reported at this time regarding domestic violence or intimate partner violence. ? Medical History: ?STEPHON is 28 year old female who is 1, para 0- now 1 following labor and delivery of . STEPHON received routine care during with [facility]. STEPHON presented to hospital on 05/07/23 and delivered baby at 38 weeks via vaginal delivery. Baby girl, named Andrei Moran, was born weighing 6lb 10oz and her apgars were 8 and 9 at one and five minutes of life, respectfully. Baby will be followed by Dr. Sue for pediatrics. STEPHON states that she is breast feeding and that is going well, she has a pump for home. Educational Status:? Both parents graduated from high school. STEPHON has an associates degree and IMAN obtained some college credits, but did not graduate. No concerns reported regarding reading, learning or comprehension. Financial Status: Both parents are gainfully employed outside of the home. IMAN works in construction/ logging and has several other odd jobs that he does. 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 Infant Supplies:??Parents have obtained all necessary baby supplies, including: car seat, safe sleep space, clothes, diapers and wipes. Childcare/Caregiver(s):? MOB states that when both parents have to work they have grandparents that will be able to watch baby. Transportation:?? No barriers, parents have reliable transportation. Programs/Agencies Involved: ???Parents are connected to Medicaid insurance through [employer]. Parents are not connected to any other financial community supports. MOB states that she has heard of WIC and is receptive to getting connected should she need to switch to formula to feed baby. Children Services/Legal Issues: No history of Children Services involvement. No issues or concerns warranting referral to be made. ??? Behavioral Health Issues: ??Mental Health History:??? Substance Use History:?? Family History:? Drug Screens: ?? Family/Social Stressors:? Parents deny any stressors or concerns at this time. Support Systems: MOB states that they have a lot of friends and family members who are supportive. Depression/Shaken Baby/Safe Sleeping:? Sw educated parents on signs and symptoms of baby blues and depression, anxiety to be on the lookout for. Sw provided parents with literature to review. Sw encouraged parents to talk about ways and things that FOB can do to be supportive and helpful should MOB struggle with her mental health during this period. Parents expressed understanding. ASSESSMENT:? MOB and baby admitted following labor and delivery. MOB and FOB both extremely talkative and open during social work assessment. Parents maintained eye contact and opened up about what life will look like for baby and their family once discharged to home. Parents have all necessary baby supplies and natural supports in place. FOB observed to provide loving and caring hands on care of . Parents were receptive and welcoming of sw involvement and support. PLAN:? MOB and baby to be discharged when medically ready. ?No other services requested or indicated. Candace Acevedo, SECOND VP HR ASSESSMENT, OUTSIDE MACHINIST APPRENTICE
== END 2023-05-08 12:05 | disposition home or self-care (01) | DRG 560 ==
LOC: WPOUT 13:09 → WP 13:12
PROVIDERS: Advanced Practice Midwife; Admitting Provider Obstetrics & Gynecology; PCP Family Medicine; Visit Provider Obstetrics & Gynecology
DX: O42.913 Preterm premature rupture of membranes, unspecified as to length of time between rupture and onset of labor, third trimester (principal); Z37.0 Single live birth; E66.8 Other obesity; E28.2 Polycystic ovarian syndrome; F32.9 Major depressive disorder, single episode, unspecified; F41.9 Anxiety disorder, unspecified; Z87.891 Personal history of nicotine dependence; O99.214 Obesity complicating childbirth; Z3A.38 38 weeks gestation of pregnancy; O71.4 Obstetric high vaginal laceration alone; O99.344 Other mental disorders complicating childbirth; Z82.0 Family history of epilepsy and other diseases of the nervous system; O99.284 Endocrine, nutritional and metabolic diseases complicating childbirth; Z90.49 Acquired absence of other specified parts of digestive tract
CPT/HCPCS: 59025; 59050; 84112; 85025; 86780; 86850; 86900; 86901; 99221; J7120; G0378; J2405